=== PATIENT | male | born 1940 | race Caucasian/White ===

== ENCOUNTER 2019-08-29 08:45 | Emergency (ER) | payer MEDICARE, OTHER ==
[~2019-08-29] VITALS: Ht 180.3 cm; Wt 96.2 kg
[~2019-08-29 08:45] MED LIST: METO25TA5; SULF-169; TERA10CA36 PO
[2019-08-29 08:54] VITALS: BP 131/64
== END 2019-08-29 11:56 | disposition home or self-care (01) ==
LOC: EDBD 08:45 → ER 08:45
DX: T83.028A Displacement of other urinary catheter, initial encounter (principal); R36.9 Urethral discharge, unspecified; J44.9 Chronic obstructive pulmonary disease, unspecified; I10 Essential (primary) hypertension; Z87.440 Personal history of urinary (tract) infections; Z95.0 Presence of cardiac pacemaker; Z87.891 Personal history of nicotine dependence; Z79.899 Other long term (current) drug therapy; Z88.2 Allergy status to sulfonamides; Z88.0 Allergy status to penicillin
CPT/HCPCS: 51702; 81002

== ENCOUNTER 2020-09-07 10:29 | Inpatient (IN) | payer MEDICARE, MEDICAID ==
[~2020-09-07] VITALS: Ht 177.8 cm; Wt 84.0 kg
[2020-09-07] MEDS ORDERED: MORPHINE SULFATE 4 MG/ML SYR/VIAL IV ONE (10:45)
[2020-09-07] MEDS ORDERED: ONDANSETRON HCL 4 MG/2 ML VIAL IV ONE (10:45)
[2020-09-07] MEDS ORDERED: SODIUM CHLORIDE 0.9% 500 ML IV ONE (10:45)
[2020-09-07 11:31] LABS: Basophils # (auto) 0.1 10 ^3/uL (0-0.2); Basophils % (auto) 0.7 % (0.0-2.0); Eosinophils # (auto) 0.2 10 ^3/uL (0-0.8); Eosinophils % (auto) 2.3 % (0.0-7.0); Hemoglobin 13.7 g/dL (13.5-17.5); Lymphocytes # (auto) 1.3 10 ^3/uL (0.4-5.4); Mean Corpuscular Hemoglobin 32.2 pg (28.0-32.0); Monocytes # (auto) 0.8 10 ^3/uL (0-1.3); Monocytes % (auto) 8.2 % (0.0-12.0); Neutrophils % (auto) 74.8 % (37.0-80.0); Red Blood Cells 4.24 10^6/uL (4.5-5.90); Red Cell Distribution Width 13.5 % (11.8-14.3); White Blood Cell 9.4 10^3/uL (4.4-10.8)
[2020-09-07 11:48] LABS: Albumin 3.2 g/dL (3.4-5.0); Calcium 8.5 mg/dL (8.5-10.1)
[2020-09-07 11:51] LABS: BUN/Creatinine Ratio 18.2; Bilirubin, Total 0.6 mg/dL (0.2-1.0)
[2020-09-07] MEDS ORDERED: MORPHINE SULF INJ 2 MG/ML SYRINGE 1ML IV PRN ×3 (13:15→17:30)
[2020-09-07] MEDS ORDERED: NITROGLYCERIN 0.4 MG SL TAB SL PRN ×2 (13:15→17:30)
[2020-09-07] MEDS ORDERED: MET25T PO (14:11)
[2020-09-07] MEDS ORDERED: CITA-77 PO (14:11)
[2020-09-07] MEDS ORDERED: POTA-264 PO (14:11)
[2020-09-07] MEDS ORDERED: FUR20T PO (14:11)
[2020-09-07] MEDS ORDERED: OMEP-260 PO (14:11)
[2020-09-07] MEDS ORDERED: TAMS0.4C36 PO (14:11)
[2020-09-07] MEDS ORDERED: LOSA-69 PO (14:11)
[2020-09-07 16:45] VITALS: BP 151/70
[2020-09-07] MEDS ORDERED: LACTATED RINGER'S 1,000 ML IV ONE (17:00)
[2020-09-07 17:28] VITALS: BP 151/70
[2020-09-07] MEDS ORDERED: HYDROcodone-ACET 5/325MG TAB PO PRN (17:30)
[2020-09-07] MEDS ORDERED: ACETAMINOPHEN 325 MG TAB PO PRN (17:30)
[2020-09-07] MEDS ORDERED: DOCUSATE SOD 100 MG CAP PO PRN (17:30)
[2020-09-07] MEDS ORDERED: ALUM & MAG HYDROX-SIMETH LIQ(MAALOX) 30 ML PO PRN (17:30)
[2020-09-07] MEDS ORDERED: ONDANSETRON HCL 4 MG/2 ML VIAL IV PRN (17:30)
[2020-09-07] MEDS ORDERED: LORazepam 0.5 MG TAB PO PRN (17:30)
[2020-09-07] MEDS ORDERED: MEROPENEM 1GM IVPB 100 ML IV ONE (17:45)
[2020-09-07 17:58] LABS: Cholesterol 198 mg/dL (< 200)
[2020-09-07 18:02] LABS: HDL Cholesterol 31 mg/dL (40-59); LDL Cholesterol 139 mg/dL (< 100); Triglycerides 153 mg/dL (< 150)
[2020-09-07] MEDS: SODIUM CHLORIDE 0.9% 1,000 ML IV SCH (18:42)
[2020-09-07 18:46] LABS: Urine Bacteria MOD /hpf (None Seen); Urine Blood 2+ /uL (Negative); Urine Specific Gravity 1.017 (1.001-1.035); Urine WBC 2821 /hpf (0 - 3); Urine WBC Clumps PRESENT /hpf (None Seen)
[2020-09-07 20:55] LABS: Alcohol, Urine < 3.0 mg/dL (0-10); Amphetamine Screen, Urine NEGATIVE (NEGATIVE); Barbiturate Scree,Urine NEGATIVE (NEGATIVE); Opiate Scree,Urine POSITIVE (NEGATIVE); Phencyclidine Screen, Urine NEGATIVE (NEGATIVE)
[2020-09-07 20:56] LABS: Benzodiazephine Screen, Urine NEGATIVE (NEGATIVE); Cannabinoid Screen, Urine POSITIVE (NEGATIVE); Cocaine Screen, Urine NEGATIVE (NEGATIVE)
[2020-09-07] MEDS: LOSARTAN POTASSIUM 50 MG TAB PO SCH (21:34)
[2020-09-07] MEDS: METOPROLOL TARTRATE 25 MG TAB PO SCH (21:34)
[2020-09-07] MEDS: NYSTATIN TOPICAL CREAM 15GM TOP SCH (21:35)
[2020-09-08] VITALS (7 sets, daily range): BP systolic 122–189; BP diastolic 65–87
[2020-09-08] MEDS: MEROPENEM 1GM IVPB 100 ML IV SCH ×3 (01:21→17:45)
[2020-09-08] MEDS: hydrALAZINE HCL 20 MG/ML VL IV PRN (06:29)
[2020-09-08] MEDS: LOSARTAN POTASSIUM 50 MG TAB PO SCH ×2 (10:48→22:07)
[2020-09-08] MEDS: CITALOPRAM HYDROBR 20 MG TAB PO SCH (10:48)
[2020-09-08] MEDS: NYSTATIN TOPICAL CREAM 15GM TOP SCH ×2 (10:49→21:36)
[2020-09-08] MEDS: METOPROLOL TARTRATE 25 MG TAB PO SCH ×2 (10:49→22:07)
[2020-09-08] MEDS: SODIUM CHLORIDE 0.9% 1,000 ML IV SCH (10:49)
[2020-09-08] MEDS: ENOXAPARIN SOD 40 MG/0.4 ML SYRINGE SC SCH (10:49)
[2020-09-08] MEDS: MUPIROCIN 2% OINT 15gm or 22gm EACHNOSTRI SCH (21:36)
[2020-09-09] MEDS: MEROPENEM 1GM IVPB 100 ML IV SCH ×3 (01:30→18:30)
[2020-09-09] MEDS: SODIUM CHLORIDE 0.9% 1,000 ML IV SCH (02:50)
[2020-09-09 05:00] VITALS: BP 192/75
[2020-09-09] MEDS: hydrALAZINE HCL 20 MG/ML VL IV PRN (05:37)
[2020-09-09 08:22] VITALS: BP 161/57
[2020-09-09] MEDS: ENOXAPARIN SOD 40 MG/0.4 ML SYRINGE SC SCH (11:13)
[2020-09-09] MEDS: METOPROLOL TARTRATE 25 MG TAB PO SCH ×2 (11:14→22:51)
[2020-09-09] MEDS: LOSARTAN POTASSIUM 50 MG TAB PO SCH ×2 (11:15→22:50)
[2020-09-09] MEDS: CITALOPRAM HYDROBR 20 MG TAB PO SCH (11:15)
[2020-09-09] MEDS: MUPIROCIN 2% OINT 15gm or 22gm EACHNOSTRI SCH ×2 (11:21→22:49)
[2020-09-09] MEDS: NYSTATIN TOPICAL CREAM 15GM TOP SCH ×2 (11:21→22:51)
[2020-09-09 13:00] VITALS: BP 142/70
[2020-09-09] MEDS ORDERED: cloNIDine HCL 0.1 MG TAB PO PRN (14:30)
[2020-09-09 22:00] VITALS: BP 144/76
[2020-09-10] MEDS: MEROPENEM 1GM IVPB 100 ML IV SCH ×2 (02:30→10:15)
[2020-09-10 05:00] VITALS: BP 166/68
[2020-09-10 08:59] VITALS: BP 161/75
[2020-09-10] MEDS: MUPIROCIN 2% OINT 15gm or 22gm EACHNOSTRI SCH (10:14)
[2020-09-10] MEDS: CITALOPRAM HYDROBR 20 MG TAB PO SCH (10:15)
[2020-09-10] MEDS: METOPROLOL TARTRATE 25 MG TAB PO SCH (10:16)
[2020-09-10] MEDS: NYSTATIN TOPICAL CREAM 15GM TOP SCH (10:17)
[2020-09-10] MEDS: LOSARTAN POTASSIUM 50 MG TAB PO SCH (10:17)
[2020-09-10] MEDS: ENOXAPARIN SOD 40 MG/0.4 ML SYRINGE SC SCH (10:17)
[2020-09-10 13:00] VITALS: BP 155/62
[2020-09-10 15:02] VITALS: BP 148/64
== END 2020-09-10 17:00 | disposition home health service (06) | DRG 698 ==
LOC: ER 10:29 → EDBD 10:29 → TELE 13:11 → TELE-CENTR 16:23
PROVIDERS: ADMIT Hospitalist; ATTEND Family Medicine
DX: T83.510A Infection and inflammatory reaction due to cystostomy catheter, initial encounter (principal); A41.59 Other Gram-negative sepsis; G93.41 Metabolic encephalopathy; R65.20 Severe sepsis without septic shock; N30.01 Acute cystitis with hematuria; N17.9 Acute kidney failure, unspecified; I16.9 Hypertensive crisis, unspecified; I13.0 Hypertensive heart and chronic kidney disease with heart failure and stage 1 through stage 4 chronic kidney disease, or unspecified chronic kidney disease; N13.8 Other obstructive and reflux uropathy; T83.090A Other mechanical complication of cystostomy catheter, initial encounter; N40.1 Benign prostatic hyperplasia with lower urinary tract symptoms; R36.9 Urethral discharge, unspecified; I50.9 Heart failure, unspecified; N21.0 Calculus in bladder; F32.9 Major depressive disorder, single episode, unspecified; G89.29 Other chronic pain; E66.9 Obesity, unspecified; F17.210 Nicotine dependence, cigarettes, uncomplicated; I71.4 Abdominal aortic aneurysm, without rupture; J44.9 Chronic obstructive pulmonary disease, unspecified; L30.4 Erythema intertrigo; B95.62 Methicillin resistant Staphylococcus aureus infection as the cause of diseases classified elsewhere; M54.5 Low back pain; Z96.652 Presence of left artificial knee joint; Z20.822 Contact with and (suspected) exposure to COVID-19; N18.31 Chronic kidney disease, stage 3a; M19.90 Unspecified osteoarthritis, unspecified site; B96.4 Proteus (mirabilis) (morganii) as the cause of diseases classified elsewhere; Y73.8 Miscellaneous gastroenterology and urology devices associated with adverse incidents, not elsewhere classified; Z68.31 Body mass index [BMI] 31.0-31.9, adult; Z79.899 Other long term (current) drug therapy; Z79.01 Long term (current) use of anticoagulants; Z88.2 Allergy status to sulfonamides; Z88.8 Allergy status to other drugs, medicaments and biological substances; Z88.0 Allergy status to penicillin; Z83.3 Family history of diabetes mellitus; Z86.73 Personal history of transient ischemic attack (TIA), and cerebral infarction without residual deficits; Z86.718 Personal history of other venous thrombosis and embolism
CPT/HCPCS: 36415; 74176; 80053; 80061; 80307; 81001; 83036; 84484; 85025; 87040; 87081; 87086; 87088; 87186; 87426; 93005; 96361; 96374; 96375; G0378; J2185; J2405

== ENCOUNTER 2021-01-04 07:55 | Emergency (ER) | payer MEDICARE, MEDICAID ==
[~2021-01-04] VITALS: Ht 180.3 cm; Wt 90.7 kg
[~2021-01-04 07:55] MED LIST changes: +CITA-77 PO; +FUR20T PO; +LOSA-69 PO; +MET25T PO; -METO25TA5; +OMEP-260 PO; +POTA-264 PO; -SULF-169; +TAMS0.4C36 PO; -TERA10CA36 PO
[2021-01-04 09:52] LABS: Basophils # (auto) 0 10 ^3/uL (0-0.2); Basophils % (auto) 0.3 % (0.0-2.0); Eosinophils # (auto) 0.1 10 ^3/uL (0-0.8); Eosinophils % (auto) 0.5 % (0.0-7.0); Hematocrit 42.7 % (41.0-53.0); Hemoglobin 14.3 g/dL (13.5-17.5); Lymphocytes # (auto) 0.7 10 ^3/uL (0.4-5.4); Lymphocytes % (auto) 5.9 % (10.0-50.0); Mean Corpuscular Hemoglobin 31.4 pg (28.0-32.0); Mean Corpuscular Hgb Conc. 33.6 g/dL (32.0-36.0); Mean Corpuscular Volume 93.6 fL (80.0-100.0); Monocytes # (auto) 0.8 10 ^3/uL (0-1.3); Monocytes % (auto) 6.8 % (0.0-12.0); Neutrophils # (auto) 10.6 10 ^3/uL (1.6-8.6); Neutrophils % (auto) 86.5 % (37.0-80.0); Red Blood Cells 4.57 10^6/uL (4.5-5.90); Red Cell Distribution Width 13.6 % (11.8-14.3); White Blood Cell 12.3 10^3/uL (4.4-10.8)
[2021-01-04 10:10] LABS: Calcium 8.3 mg/dL (8.5-10.1); Potassium 4.3 mmol/L (3.5-5.1)
[2021-01-04 10:16] LABS: BUN/Creatinine Ratio 15.5; Total Protein 7.1 g/dL (6.4-8.2)
[2021-01-04] MEDS ORDERED: cefTRIAXone 1GM/50ML D5W 50 ML IV ONE (11:00)
[2021-01-04 13:02] LABS: Urine Amorphous Crystal FEW /hpf (None Seen); Urine Bacteria NONE SEEN /hpf (None Seen); Urine Blood Negative /uL (Negative); Urine Mucus FEW (None Seen); Urine Specific Gravity 1.025 (1.001-1.035); Urine WBC 102 /hpf (0 - 3); Urine WBC Clumps PRESENT /hpf (None Seen)
[2021-01-04 13:45] VITALS: BP 132/75
== END 2021-01-04 14:14 | disposition home or self-care (01) ==
LOC: ER 07:55 → EDBD 07:55 → ER 14:01
DX: R33.9 Retention of urine, unspecified (principal); N30.00 Acute cystitis without hematuria; R30.0 Dysuria; E46 Unspecified protein-calorie malnutrition; Z68.27 Body mass index [BMI] 27.0-27.9, adult; J44.9 Chronic obstructive pulmonary disease, unspecified; I10 Essential (primary) hypertension; F17.210 Nicotine dependence, cigarettes, uncomplicated; Z86.73 Personal history of transient ischemic attack (TIA), and cerebral infarction without residual deficits; Z95.0 Presence of cardiac pacemaker; Z90.89 Acquired absence of other organs; Z79.899 Other long term (current) drug therapy; Z88.0 Allergy status to penicillin; Z88.1 Allergy status to other antibiotic agents; Z88.2 Allergy status to sulfonamides
CPT/HCPCS: 36415; 51702; 71045; 74176; 80053; 81001; 84484; 85025; 96365; 99285; J0696

== ENCOUNTER 2021-06-04 17:44 | Inpatient (IN) | payer MEDICARE, MEDICAID ==
[~2021-06-04] VITALS: Ht 172.7 cm; Wt 91.7 kg
[2021-06-04 18:31] LABS: Basophils # (auto) 0.1 10 ^3/uL (0-0.2); Eosinophils # (auto) 0.9 10 ^3/uL (0-0.8); Hematocrit 38.2 % (41.0-53.0); Hemoglobin 12.9 g/dL (13.5-17.5); Lymphocytes # (auto) 1.3 10 ^3/uL (0.4-5.4); Lymphocytes % (auto) 18.6 % (10.0-50.0); Mean Corpuscular Hemoglobin 30.9 pg (28.0-32.0); Mean Corpuscular Hgb Conc. 33.8 g/dL (32.0-36.0); Mean Corpuscular Volume 91.5 fL (80.0-100.0); Monocytes # (auto) 0.7 10 ^3/uL (0-1.3); Monocytes % (auto) 9.8 % (0.0-12.0); Neutrophils # (auto) 3.9 10 ^3/uL (1.6-8.6); Neutrophils % (auto) 57.6 % (37.0-80.0); Red Blood Cells 4.17 10^6/uL (4.5-5.90); Red Cell Distribution Width 13.9 % (11.8-14.3); White Blood Cell 6.7 10^3/uL (4.4-10.8)
[2021-06-04 18:47] LABS: Albumin 3.2 g/dL (3.4-5.0); BUN/Creatinine Ratio 14.1; Calcium 8.9 mg/dL (8.5-10.1); Potassium 3.9 mmol/L (3.5-5.1)
[2021-06-04 18:49] LABS: Bilirubin, Total 0.4 mg/dL (0.2-1.0); Total Protein 7.4 g/dL (6.4-8.2)
[2021-06-04] MEDS ORDERED: IPRATROPIUM BROM 0.5 MG/2.5ML INH SOL NEB ONE (19:00)
[2021-06-04] MEDS ORDERED: ALBUTEROL SULF 2.5 MG/0.5ML(0.5%) NEB SOLN NEB ONE (19:00)
[2021-06-04] MEDS ORDERED: methylPREDNISolone SOD SUCC 125 MG/2 ML VL IV ONE ×2 (21:30)
[2021-06-04] MEDS ORDERED: ACETAMINOPHEN 325 MG TAB PO PRN (22:00)
[2021-06-04] MEDS ORDERED: ONDANSETRON HCL 4 MG/2 ML VIAL IV PRN (22:00)
[2021-06-04] MEDS ORDERED: NITROGLYCERIN 0.4 MG SL TAB SL PRN (22:00)
[2021-06-04] MEDS ORDERED: MORPHINE SULFATE INJECTION 2 MG/ML SYRG IV PRN (22:00)
[2021-06-04] MEDS: LOSARTAN POTASSIUM 25 MG TAB PO SCH (23:00)
[2021-06-04 23:30] VITALS: BP 159/64
[2021-06-05] MEDS: ALBUTEROL SULF 2.5 MG/0.5ML(0.5%) NEB SOLN NEB SCH ×4 (00:14→18:26)
[2021-06-05] MEDS: IPRATROPIUM BROM 0.5 MG/2.5ML INH SOL NEB SCH ×4 (00:14→18:26)
[2021-06-05 01:16] VITALS: BP 159/84
[2021-06-05 05:00] VITALS: BP 148/60
[2021-06-05] MEDS ORDERED: ALBUTEROL SULF 2.5 MG/0.5ML(0.5%) NEB SOLN NEB SCH (06:00)
[2021-06-05] MEDS ORDERED: IPRATROPIUM BROM 0.5 MG/2.5ML INH SOL NEB SCH (06:00)
[2021-06-05 06:17] LABS: Hematocrit 38.5 % (41.0-53.0); Hemoglobin 13.3 g/dL (13.5-17.5); Mean Corpuscular Hemoglobin 31.7 pg (28.0-32.0); Mean Corpuscular Hgb Conc. 34.5 g/dL (32.0-36.0); Mean Corpuscular Volume 91.8 fL (80.0-100.0); White Blood Cell 4.2 10^3/uL (4.4-10.8)
[2021-06-05 06:23] LABS: Potassium 4.6 mmol/L (3.5-5.1)
[2021-06-05 06:25] LABS: Band Neutrophils % (manual) 0; Basophils % (manual) 0 (0.0-2.0); Blast Cells 0; Eosinophils % (manual) 0 (0-7); Metamyelocytes % 0; Myelocytes % 0; Promyelocytes % 0; Reactive Lymphocytes 0
[2021-06-05 06:28] LABS: BUN/Creatinine Ratio 17.5; Calcium 9.2 mg/dL (8.5-10.1)
[2021-06-05 07:32] LABS: Lymphocytes % (manual) 9 (10.0-50.0); Monocytes % (manual) 4 (0-12)
[2021-06-05 09:00] VITALS: BP 150/75
[2021-06-05] MEDS: AZITHROMYCIN 500MG/ 250ML 250 ML IV SCH (09:24)
[2021-06-05] MEDS: LOSARTAN POTASSIUM 25 MG TAB PO SCH ×2 (09:25→22:25)
[2021-06-05] MEDS: ENOXAPARIN SOD 40 MG/0.4 ML SYRINGE SC SCH (09:25)
[2021-06-05] MEDS: POTASSIUM CHL 10 Meq TABLET PO SCH (09:25)
[2021-06-05] MEDS: METOPROLOL TARTRATE 25 MG TAB PO SCH (09:26)
[2021-06-05] MEDS: FUROSEMIDE 20 MG TAB PO SCH (09:26)
[2021-06-05] MEDS ORDERED: methylPREDNISolone SOD SUCC 125 MG/2 ML VL IV SCH (10:00)
[2021-06-05] MEDS ORDERED: PANTOPRAZOLE 40 MG TAB PO SCH (10:00)
[2021-06-05 13:00] VITALS: BP 161/76
[2021-06-05] MEDS: methylPREDNISolone SOD SUCC 125 MG/2 ML VL IV SCH ×2 (15:27→22:24)
[2021-06-05 17:00] VITALS: BP 154/71
[2021-06-05] MEDS: TAMSULOSIN HYDROCHLORIDE 0.4 MG CAP PO SCH (17:44)
[2021-06-05 22:00] VITALS: BP 169/74
[2021-06-06] MEDS: ALBUTEROL SULF 2.5 MG/0.5ML(0.5%) NEB SOLN NEB SCH ×4 (00:19→18:32)
[2021-06-06] MEDS: IPRATROPIUM BROM 0.5 MG/2.5ML INH SOL NEB SCH ×4 (00:19→18:31)
[2021-06-06 05:00] VITALS: BP 150/92
[2021-06-06] MEDS ORDERED: hydrALAZINE HCL 20 MG/ML VL IV PRN (06:15)
[2021-06-06] MEDS: BUDESONIDE (INHALATION) 0.5 MG/2 ML NEB NEB SCH ×2 (06:20→18:32)
[2021-06-06 09:00] VITALS: BP 126/65
[2021-06-06] MEDS: POTASSIUM CHL 10 Meq TABLET PO SCH (09:26)
[2021-06-06] MEDS: AZITHROMYCIN 500MG/ 250ML 250 ML IV SCH (09:26)
[2021-06-06] MEDS: LOSARTAN POTASSIUM 25 MG TAB PO SCH ×2 (09:26→21:32)
[2021-06-06] MEDS: FUROSEMIDE 20 MG TAB PO SCH (09:27)
[2021-06-06] MEDS: METOPROLOL TARTRATE 25 MG TAB PO SCH (09:27)
[2021-06-06] MEDS: ENOXAPARIN SOD 40 MG/0.4 ML SYRINGE SC SCH (09:27)
[2021-06-06] MEDS ORDERED: cefTRIAXone 1GM/50ML D5W 50 ML IV ONE (09:45)
[2021-06-06] MEDS: predniSONE 20 MG TAB PO SCH (10:35)
[2021-06-06 13:00] VITALS: BP 172/77
[2021-06-06 13:44] VITALS: BP 158/92
[2021-06-06 16:35] VITALS: BP 169/76
[2021-06-06] MEDS: TAMSULOSIN HYDROCHLORIDE 0.4 MG CAP PO SCH (17:34)
[2021-06-06 22:00] VITALS: BP 173/72
[2021-06-07] VITALS (7 sets, daily range): BP systolic 163–187; BP diastolic 71–76
[2021-06-07] MEDS: ALBUTEROL SULF 2.5 MG/0.5ML(0.5%) NEB SOLN NEB SCH ×5 (06:44→18:18)
[2021-06-07] MEDS: IPRATROPIUM BROM 0.5 MG/2.5ML INH SOL NEB SCH ×5 (06:44→18:18)
[2021-06-07] MEDS: BUDESONIDE (INHALATION) 0.5 MG/2 ML NEB NEB SCH ×2 (06:44→18:18)
[2021-06-07] MEDS ORDERED: cefTRIAXone 1GM/50ML D5W 50 ML IV SCH (09:00)
[2021-06-07] MEDS ORDERED: AZITHROMYCIN 250 MG TAB PO SCH (10:00)
[2021-06-07] MEDS: ENOXAPARIN SOD 40 MG/0.4 ML SYRINGE SC SCH (10:24)
[2021-06-07] MEDS: predniSONE 20 MG TAB PO SCH (10:25)
[2021-06-07] MEDS: POTASSIUM CHL 10 Meq TABLET PO SCH (10:25)
[2021-06-07] MEDS: FUROSEMIDE 20 MG TAB PO SCH (10:26)
[2021-06-07] MEDS: METOPROLOL TARTRATE 25 MG TAB PO SCH (10:26)
[2021-06-07] MEDS: LOSARTAN POTASSIUM 25 MG TAB PO SCH (10:27)
[2021-06-07] MEDS ORDERED: UMEC1AER IN ×2 (11:05→14:12)
[2021-06-07] MEDS ORDERED: PRED20TA2 PO ×2 (11:07→14:12)
[2021-06-07] MEDS: TAMSULOSIN HYDROCHLORIDE 0.4 MG CAP PO SCH (17:34)
== END 2021-06-07 17:25 | DRG 189 ==
LOC: EDBD 17:44 → ER 17:44 → TELE 21:55 → TELE-EAST 23:17
PROVIDERS: ADMIT Nurse Practitioner; ATTEND Internal Medicine
DX: J96.21 Acute and chronic respiratory failure with hypoxia (principal); I50.32 Chronic diastolic (congestive) heart failure; E66.9 Obesity, unspecified; I11.0 Hypertensive heart disease with heart failure; F12.90 Cannabis use, unspecified, uncomplicated; Z20.822 Contact with and (suspected) exposure to COVID-19; F17.210 Nicotine dependence, cigarettes, uncomplicated; J43.9 Emphysema, unspecified; Z83.3 Family history of diabetes mellitus; Z86.73 Personal history of transient ischemic attack (TIA), and cerebral infarction without residual deficits; Z95.0 Presence of cardiac pacemaker; Z88.1 Allergy status to other antibiotic agents; Z88.0 Allergy status to penicillin; Z88.2 Allergy status to sulfonamides; Z68.30 Body mass index [BMI] 30.0-30.9, adult
CPT/HCPCS: 36415; 71045; 71250; 80048; 80053; 83880; 84484; 85007; 85025; 85027; 85379; 87081; 93005; 93970; 94640; 96374; G0378; J0696

== ENCOUNTER 2021-06-23 22:49 | Inpatient (IN) | payer MEDICARE, MEDICAID ==
[~2021-06-23] VITALS: Ht 180.3 cm; Wt 94.5 kg
[~2021-06-23 22:49] MED LIST changes: +PRED20TA2 PO; +UMEC1AER IN
[2021-06-23] MEDS ORDERED: IPRATROPIUM BROM 0.5 MG/2.5ML INH SOL NEB ONE (23:30)
[2021-06-23] MEDS ORDERED: ALBUTEROL SULF 2.5 MG/0.5ML(0.5%) NEB SOLN NEB ONE (23:30)
[2021-06-24 00:35] LABS: Basophils # (auto) 0 10 ^3/uL (0-0.2); Basophils % (auto) 0.5 % (0.0-2.0); Eosinophils # (auto) 0.7 10 ^3/uL (0-0.8); Eosinophils % (auto) 7.5 % (0.0-7.0); Hematocrit 35.5 % (41.0-53.0); Lymphocytes # (auto) 0.8 10 ^3/uL (0.4-5.4); Lymphocytes % (auto) 9.2 % (10.0-50.0); Mean Corpuscular Hgb Conc. 33.7 g/dL (32.0-36.0); Mean Corpuscular Volume 91.9 fL (80.0-100.0); Monocytes # (auto) 0.6 10 ^3/uL (0-1.3); Monocytes % (auto) 6.6 % (0.0-12.0); Neutrophils % (auto) 76.2 % (37.0-80.0); Red Blood Cells 3.87 10^6/uL (4.5-5.90); Red Cell Distribution Width 13.8 % (11.8-14.3); White Blood Cell 9.2 10^3/uL (4.4-10.8)
[2021-06-24 00:50] LABS: Albumin 2.8 g/dL (3.4-5.0); Calcium 8.7 mg/dL (8.5-10.1); Potassium 4.2 mmol/L (3.5-5.1)
[2021-06-24 00:51] LABS: Bilirubin, Total 0.4 mg/dL (0.2-1.0); Total Protein 6.4 g/dL (6.4-8.2)
[2021-06-24] MEDS ORDERED: ALBUTEROL SULF 2.5 MG/0.5ML(0.5%) NEB SOLN NEB ONE (02:00)
[2021-06-24] MEDS ORDERED: methylPREDNISolone SOD SUCC 125 MG/2 ML VL IV ONE (02:00)
[2021-06-24] MEDS ORDERED: IPRATROPIUM BROM 0.5 MG/2.5ML INH SOL NEB ONE (02:00)
[2021-06-24] MEDS: MAGNESIUM SULFATE 1GM/100ML 100 ML IV SCH ×2 (02:16→03:08)
[2021-06-24] MEDS ORDERED: ASPirin 325 MG TAB PO ONE (04:15)
[2021-06-24] MEDS ORDERED: AZITHROMYCIN 500MG/ 250ML 250 ML IV ONE (10:30)
[2021-06-24] MEDS ORDERED: MORPHINE SULFATE INJECTION 2 MG/ML SYRG IV PRN (10:30)
[2021-06-24] MEDS ORDERED: ALBUTEROL SULF 2.5 MG/0.5ML(0.5%) NEB SOLN NEB PRN (10:30)
[2021-06-24] MEDS ORDERED: FUROSEMIDE 20 MG/2 ML VIAL IV ONE (10:30)
[2021-06-24] MEDS ORDERED: IPRATROPIUM BROM 0.5 MG/2.5ML INH SOL NEB PRN (10:30)
[2021-06-24] MEDS ORDERED: PANTOPRAZOLE 40 MG/10 ML VIAL INJ IV ONE ×2 (10:30→11:53)
[2021-06-24] MEDS ORDERED: FUROSEMIDE 20 MG/2 ML VIAL ONE (11:53)
[2021-06-24 13:48] VITALS: BP 171/84
[2021-06-24 16:00] VITALS: BP 140/67
[2021-06-24] MEDS: IPRATROPIUM BROM 0.5 MG/2.5ML INH SOL NEB SCH (19:44)
[2021-06-24] MEDS: ALBUTEROL SULF 2.5 MG/0.5ML(0.5%) NEB SOLN NEB SCH (19:44)
[2021-06-24] MEDS: LOSARTAN POTASSIUM 50 MG TAB PO SCH (21:59)
[2021-06-24 22:00] VITALS: BP 142/90
[2021-06-25] MEDS: ALBUTEROL SULF 2.5 MG/0.5ML(0.5%) NEB SOLN NEB SCH ×4 (01:00→19:57)
[2021-06-25] MEDS: IPRATROPIUM BROM 0.5 MG/2.5ML INH SOL NEB SCH ×4 (01:00→19:57)
[2021-06-25 05:00] VITALS: BP 176/79
[2021-06-25] MEDS: hydrALAZINE HCL 20 MG/ML VL IV PRN ×2 (05:16→17:13)
[2021-06-25 05:30] LABS: Basophils # (auto) 0 10 ^3/uL (0-0.2); Basophils % (auto) 0.1 % (0.0-2.0); Eosinophils # (auto) 0 10 ^3/uL (0-0.8); Hematocrit 35.2 % (41.0-53.0); Hemoglobin 11.9 g/dL (13.5-17.5); Lymphocytes # (auto) 0.8 10 ^3/uL (0.4-5.4); Lymphocytes % (auto) 6.9 % (10.0-50.0); Mean Corpuscular Hemoglobin 30.5 pg (28.0-32.0); Mean Corpuscular Hgb Conc. 33.8 g/dL (32.0-36.0); Mean Corpuscular Volume 90.4 fL (80.0-100.0); Monocytes # (auto) 0.5 10 ^3/uL (0-1.3); Monocytes % (auto) 4.6 % (0.0-12.0); Neutrophils % (auto) 88.4 % (37.0-80.0); Red Cell Distribution Width 13.6 % (11.8-14.3); White Blood Cell 11.3 10^3/uL (4.4-10.8)
[2021-06-25 05:48] LABS: Albumin 2.6 g/dL (3.4-5.0); BUN/Creatinine Ratio 23.1; Calcium 8.6 mg/dL (8.5-10.1); Potassium 4.4 mmol/L (3.5-5.1)
[2021-06-25 05:57] LABS: Bilirubin, Total 0.4 mg/dL (0.2-1.0); Total Protein 6.2 g/dL (6.4-8.2)
[2021-06-25 09:14] VITALS: BP 172/76
[2021-06-25] MEDS ORDERED: TAMSULOSIN HYDROCHLORIDE 0.4 MG CAP PO SCH (10:00)
[2021-06-25] MEDS: FUROSEMIDE 20 MG/2 ML VIAL IV SCH (10:01)
[2021-06-25] MEDS: PANTOPRAZOLE 40 MG/10 ML VIAL INJ IV SCH (10:01)
[2021-06-25] MEDS: AZITHROMYCIN 500MG/ 250ML 250 ML IV SCH (10:02)
[2021-06-25] MEDS: methylPREDNISolone SOD SUCC 40 MG/ML VL IV SCH ×2 (10:02→22:07)
[2021-06-25] MEDS: LOSARTAN POTASSIUM 50 MG TAB PO SCH ×2 (10:02→22:08)
[2021-06-25] MEDS: POTASSIUM CHL 10 Meq TABLET PO SCH (10:03)
[2021-06-25] MEDS: METOPROLOL TARTRATE 25 MG TAB PO SCH (10:03)
[2021-06-25] MEDS: ENOXAPARIN SOD 40 MG/0.4 ML SYRINGE SC SCH (10:04)
[2021-06-25 13:00] VITALS: BP 165/75
[2021-06-25 17:00] VITALS: BP 164/72
[2021-06-25 22:00] VITALS: BP 148/60
[2021-06-26 05:00] VITALS: BP 128/62
[2021-06-26] MEDS: IPRATROPIUM BROM 0.5 MG/2.5ML INH SOL NEB SCH ×3 (06:30→19:18)
[2021-06-26] MEDS: ALBUTEROL SULF 2.5 MG/0.5ML(0.5%) NEB SOLN NEB SCH ×3 (06:30→19:18)
[2021-06-26 08:18] VITALS: BP 152/75
[2021-06-26] MEDS: POTASSIUM CHL 10 Meq TABLET PO SCH (10:06)
[2021-06-26] MEDS: LOSARTAN POTASSIUM 50 MG TAB PO SCH ×2 (10:06→22:55)
[2021-06-26] MEDS: METOPROLOL TARTRATE 25 MG TAB PO SCH (10:07)
[2021-06-26] MEDS: ENOXAPARIN SOD 40 MG/0.4 ML SYRINGE SC SCH (10:07)
[2021-06-26] MEDS: methylPREDNISolone SOD SUCC 40 MG/ML VL IV SCH ×2 (10:07→22:55)
[2021-06-26] MEDS: FUROSEMIDE 20 MG/2 ML VIAL IV SCH (10:08)
[2021-06-26] MEDS: PANTOPRAZOLE 40 MG/10 ML VIAL INJ IV SCH (10:08)
[2021-06-26] MEDS: AZITHROMYCIN 500MG/ 250ML 250 ML IV SCH (10:09)
[2021-06-26 12:59] VITALS: BP 153/73
[2021-06-26 17:23] VITALS: BP 151/74
[2021-06-26 17:25] VITALS: BP 151/74
[2021-06-26 22:00] VITALS: BP 160/63
[2021-06-26] MEDS: hydrALAZINE HCL 20 MG/ML VL IV PRN (23:06)
[2021-06-27 05:00] VITALS: BP 181/77
[2021-06-27] MEDS: hydrALAZINE HCL 20 MG/ML VL IV PRN ×2 (05:36→15:53)
[2021-06-27] MEDS: ALBUTEROL SULF 2.5 MG/0.5ML(0.5%) NEB SOLN NEB SCH ×2 (06:44→11:49)
[2021-06-27] MEDS: IPRATROPIUM BROM 0.5 MG/2.5ML INH SOL NEB SCH ×2 (06:44→11:49)
[2021-06-27 08:00] VITALS: BP 139/79
[2021-06-27 09:00] VITALS: BP 139/79
[2021-06-27] MEDS: AZITHROMYCIN 500MG/ 250ML 250 ML IV SCH (10:01)
[2021-06-27] MEDS: PANTOPRAZOLE 40 MG/10 ML VIAL INJ IV SCH (10:02)
[2021-06-27] MEDS: methylPREDNISolone SOD SUCC 40 MG/ML VL IV SCH (10:02)
[2021-06-27] MEDS: FUROSEMIDE 20 MG/2 ML VIAL IV SCH (10:02)
[2021-06-27] MEDS: ENOXAPARIN SOD 40 MG/0.4 ML SYRINGE SC SCH (10:03)
[2021-06-27] MEDS: LOSARTAN POTASSIUM 50 MG TAB PO SCH (10:04)
[2021-06-27] MEDS: POTASSIUM CHL 10 Meq TABLET PO SCH (10:04)
[2021-06-27] MEDS: METOPROLOL TARTRATE 25 MG TAB PO SCH (10:04)
[2021-06-27 13:00] VITALS: BP 129/69
[2021-06-27 16:07] VITALS: BP 139/79
[2021-06-27 17:00] VITALS: BP 179/68
== END 2021-06-27 17:05 | disposition home or self-care (01) | DRG 291 ==
LOC: ER 22:49 → EDBD 22:49 → TELE 06-24 10:21 → TELE-WESTW 06-24 15:36
PROVIDERS: ADMIT Registered Nurse; ATTEND Internal Medicine
DX: I13.0 Hypertensive heart and chronic kidney disease with heart failure and stage 1 through stage 4 chronic kidney disease, or unspecified chronic kidney disease (principal); I50.31 Acute diastolic (congestive) heart failure; J96.21 Acute and chronic respiratory failure with hypoxia; J44.1 Chronic obstructive pulmonary disease with (acute) exacerbation; N39.0 Urinary tract infection, site not specified; Z20.822 Contact with and (suspected) exposure to COVID-19; E88.09 Other disorders of plasma-protein metabolism, not elsewhere classified; D63.8 Anemia in other chronic diseases classified elsewhere; F12.90 Cannabis use, unspecified, uncomplicated; N18.2 Chronic kidney disease, stage 2 (mild); Z86.73 Personal history of transient ischemic attack (TIA), and cerebral infarction without residual deficits; Z83.3 Family history of diabetes mellitus; Z87.891 Personal history of nicotine dependence; Z99.81 Dependence on supplemental oxygen; Z88.2 Allergy status to sulfonamides; Z88.0 Allergy status to penicillin
CPT/HCPCS: 36415; 71045; 80053; 83880; 84484; 85025; 93005; 93306; 94640; 96361; 96365; 96366; 96367; 96375; C9113; G0378

== ENCOUNTER 2021-07-07 02:06 | Inpatient (IN) | payer MEDICARE, MEDICAID ==
[~2021-07-07] VITALS: Ht 177.8 cm; Wt 94.5 kg
[~2021-07-07 02:06] MED LIST changes: -PRED20TA2 PO
[2021-07-07 06:33] LABS: Basophils # (auto) 0.1 10 ^3/uL (0-0.2); Basophils % (auto) 0.8 % (0.0-2.0); Eosinophils # (auto) 0.5 10 ^3/uL (0-0.8); Eosinophils % (auto) 6.5 % (0.0-7.0); Hematocrit 34.2 % (41.0-53.0); Lymphocytes # (auto) 1.4 10 ^3/uL (0.4-5.4); Lymphocytes % (auto) 18.2 % (10.0-50.0); Mean Corpuscular Hemoglobin 32.1 pg (28.0-32.0); Mean Corpuscular Hgb Conc. 35.1 g/dL (32.0-36.0); Mean Corpuscular Volume 91.6 fL (80.0-100.0); Monocytes # (auto) 0.8 10 ^3/uL (0-1.3); Monocytes % (auto) 10.4 % (0.0-12.0); Neutrophils # (auto) 4.8 10 ^3/uL (1.6-8.6); Neutrophils % (auto) 64.1 % (37.0-80.0); Nucleated Red Blood Cells % 0.1 %; Red Blood Cells 3.73 10^6/uL (4.5-5.90); Red Cell Distribution Width 13.8 % (11.8-14.3); White Blood Cell 7.5 10^3/uL (4.4-10.8)
[2021-07-07 06:38] LABS: Albumin 2.9 g/dL (3.4-5.0); BUN/Creatinine Ratio 15.5; Calcium 8.7 mg/dL (8.5-10.1); Magnesium 2.1 mg/dL (1.6-2.6); Potassium 4.2 mmol/L (3.5-5.1)
[2021-07-07 06:41] LABS: Bilirubin, Total 0.5 mg/dL (0.2-1.0); Total Protein 5.8 g/dL (6.4-8.2)
[2021-07-07 06:56] LABS: Partial Thromboplastin Time 28.5 sec (23.6-33.0)
[2021-07-07 07:58] LABS: Urine Bacteria FEW /hpf (None Seen); Urine Blood 3+ /uL (Negative); Urine Specific Gravity 1.007 (1.001-1.035); Urine WBC 46 /hpf (0 - 3)
[2021-07-07] MEDS ORDERED: FUROSEMIDE 40 MG/4 ML VIAL IV ONE (08:30)
[2021-07-07] MEDS ORDERED: SPIRONOLACTONE 25 MG TAB PO ONE (08:30)
[2021-07-07] MEDS ORDERED: IPRATROPIUM BROM 0.5 MG/2.5ML INH SOL NEB ONE ×2 (09:00→12:15)
[2021-07-07] MEDS ORDERED: ALBUTEROL SULF 2.5 MG/0.5ML(0.5%) NEB SOLN NEB ONE ×2 (09:00→12:15)
[2021-07-07] MEDS ORDERED: cefTRIAXone 1GM/50ML D5W 50 ML IV ONE (09:45)
[2021-07-07] MEDS ORDERED: IOHEXOL 350 MG/ML 100ML IJ ONE (09:51)
[2021-07-07] MEDS ORDERED: LABETALOL HCL 5 MG/ML 4ML SYRINGE IV ONE (11:45)
[2021-07-07] MEDS ORDERED: methylPREDNISolone SOD SUCC 125 MG/2 ML VL IV ONE (12:15)
[2021-07-07] MEDS ORDERED: MORPHINE SULFATE INJ 2 MG/ml SYRG IV PRN ×2 (16:00→17:30)
[2021-07-07] MEDS ORDERED: NITROGLYCERIN 0.4 MG SL TAB SL PRN (16:00)
[2021-07-07] MEDS ORDERED: hydrALAZINE HCL 20 MG/ML VL IV PRN (17:00)
[2021-07-07] MEDS ORDERED: DOCUSATE SOD 100 MG CAP PO PRN (17:30)
[2021-07-07] MEDS ORDERED: ONDANSETRON HCL 4 MG/2 ML VIAL IV PRN (17:30)
[2021-07-07] MEDS ORDERED: LORazepam 0.5 MG TAB PO PRN (17:30)
[2021-07-07] MEDS ORDERED: HYDROcodone-ACET 5/325MG TAB PO PRN (17:30)
[2021-07-07] MEDS ORDERED: PROMETHAZINE-DM 5 ML ORAL SYRUP PO PRN (17:30)
[2021-07-07] MEDS ORDERED: NIFEdipine ER 30 MG TAB PO ONE (17:30)
[2021-07-07] MEDS ORDERED: ACETAMINOPHEN 325 MG TAB PO PRN (17:30)
[2021-07-07] MEDS ORDERED: PANTOPRAZOLE 40 MG/10 ML VIAL INJ IV ONE (17:30)
[2021-07-07] MEDS: FUROSEMIDE 20 MG/2 ML VIAL IV SCH (17:59)
[2021-07-07] MEDS: TAMSULOSIN HYDROCHLORIDE 0.4 MG CAP PO SCH (18:00)
[2021-07-07] MEDS: BUDESONIDE (INHALATION) 0.5 MG/2 ML NEB NEB SCH (18:12)
[2021-07-07] MEDS: ALBUTEROL SULF 2.5 MG/0.5ML(0.5%) NEB SOLN NEB PRN ×2 (18:12→22:58)
[2021-07-07] MEDS: IPRATROPIUM BROM 0.5 MG/2.5ML INH SOL NEB SCH ×2 (18:12→22:58)
[2021-07-07 18:58] LABS: INR 1.04 (0.9-1.15); Partial Thromboplastin Time 27.7 sec (23.6-33.0)
[2021-07-07 19:04] LABS: Magnesium 2.1 mg/dL (1.6-2.6); Phosphorus 3.5 mg/dL (2.5-4.90)
[2021-07-07] MEDS ORDERED: POTA-180 PO (20:05)
[2021-07-07] MEDS ORDERED: PRED20TA2 PO (20:05)
[2021-07-07] MEDS ORDERED: AML5T PO (20:05)
[2021-07-07] MEDS ORDERED: FURO20TA3 PO (20:05)
[2021-07-07] MEDS ORDERED: MET50T PO (20:05)
[2021-07-07] MEDS ORDERED: ASPI1TAB20 PO (20:05)
[2021-07-07 22:00] VITALS: BP 139/78
[2021-07-07] MEDS: POTASSIUM CHL 20 Meq TABLET PO SCH (22:29)
[2021-07-07] MEDS: ATORVASTATIN 20 MG TAB PO SCH (22:29)
[2021-07-07] MEDS: methylPREDNISolone SOD SUCC 40 MG/ML VL IV SCH (22:31)
[2021-07-07] MEDS: ISOSORBIDE MONONITRATE 20 MG TAB PO SCH (22:31)
[2021-07-07 23:28] VITALS: BP 139/78
[2021-07-08] MEDS: IPRATROPIUM BROM 0.5 MG/2.5ML INH SOL NEB SCH ×6 (02:36→22:36)
[2021-07-08] MEDS: ALBUTEROL SULF 2.5 MG/0.5ML(0.5%) NEB SOLN NEB PRN ×6 (02:36→22:36)
[2021-07-08 05:00] VITALS: BP 124/58
[2021-07-08 05:01] LABS: Basophils # (auto) 0 10 ^3/uL (0-0.2); Basophils % (auto) 0.4 % (0.0-2.0); Eosinophils # (auto) 0 10 ^3/uL (0-0.8); Hematocrit 37.3 % (41.0-53.0); Hemoglobin 12.9 g/dL (13.5-17.5); Lymphocytes # (auto) 0.6 10 ^3/uL (0.4-5.4); Lymphocytes % (auto) 7.3 % (10.0-50.0); Mean Corpuscular Hemoglobin 31.7 pg (28.0-32.0); Mean Corpuscular Hgb Conc. 34.5 g/dL (32.0-36.0); Mean Corpuscular Volume 91.9 fL (80.0-100.0); Monocytes # (auto) 0.1 10 ^3/uL (0-1.3); Neutrophils # (auto) 7.5 10 ^3/uL (1.6-8.6); Neutrophils % (auto) 91.3 % (37.0-80.0); Red Blood Cells 4.06 10^6/uL (4.5-5.90); White Blood Cell 8.2 10^3/uL (4.4-10.8)
[2021-07-08 05:23] LABS: INR 1.05 (0.9-1.15); Partial Thromboplastin Time 28.2 sec (23.6-33.0)
[2021-07-08 05:27] LABS: Potassium 3.6 mmol/L (3.5-5.1)
[2021-07-08 05:36] LABS: BUN/Creatinine Ratio 15.5; Bilirubin, Total 0.5 mg/dL (0.2-1.0); CRP High Sensitivity 0.86 mg/dL (< 0.3); Magnesium 1.9 mg/dL (1.6-2.6); Phosphorus 3.5 mg/dL (2.5-4.90); Uric Acid 6.8 mg/dL (3.5-7.2)
[2021-07-08] MEDS: methylPREDNISolone SOD SUCC 40 MG/ML VL IV SCH ×3 (05:50→21:21)
[2021-07-08] MEDS: FUROSEMIDE 20 MG/2 ML VIAL IV SCH ×2 (05:52→18:02)
[2021-07-08] MEDS: BUDESONIDE (INHALATION) 0.5 MG/2 ML NEB NEB SCH ×2 (06:34→19:26)
[2021-07-08 09:00] VITALS: BP 111/56
[2021-07-08] MEDS ORDERED: PANTOPRAZOLE 40 MG/10 ML VIAL INJ IV SCH (10:00)
[2021-07-08] MEDS ORDERED: AZITHROMYCIN 500MG/ 250ML 250 ML IV SCH (10:00)
[2021-07-08] MEDS: ASPirin 81 mg TAB PO SCH (10:58)
[2021-07-08] MEDS: ISOSORBIDE MONONITRATE 20 MG TAB PO SCH ×2 (10:58→21:41)
[2021-07-08] MEDS: POTASSIUM CHL 20 Meq TABLET PO SCH ×2 (10:58→21:22)
[2021-07-08] MEDS: NIFEdipine ER 30 MG TAB PO SCH (10:59)
[2021-07-08] MEDS: ENOXAPARIN SOD 40 MG/0.4 ML SYRINGE SC SCH (10:59)
[2021-07-08 13:00] VITALS: BP 111/53
[2021-07-08 16:57] VITALS: BP 116/58
[2021-07-08] MEDS: TAMSULOSIN HYDROCHLORIDE 0.4 MG CAP PO SCH (18:02)
[2021-07-08] MEDS: ATORVASTATIN 20 MG TAB PO SCH (21:21)
[2021-07-08 22:00] VITALS: BP 115/58
[2021-07-09] MEDS: IPRATROPIUM BROM 0.5 MG/2.5ML INH SOL NEB SCH ×6 (02:00→22:46)
[2021-07-09 05:00] VITALS: BP 118/60
[2021-07-09] MEDS: methylPREDNISolone SOD SUCC 40 MG/ML VL IV SCH ×3 (05:16→22:19)
[2021-07-09] MEDS: FUROSEMIDE 20 MG/2 ML VIAL IV SCH ×2 (05:16→19:13)
[2021-07-09 05:57] LABS: BUN/Creatinine Ratio 29.9; Potassium 4.4 mmol/L (3.5-5.1)
[2021-07-09] MEDS: ALBUTEROL SULF 2.5 MG/0.5ML(0.5%) NEB SOLN NEB PRN ×5 (06:01→22:46)
[2021-07-09] MEDS: BUDESONIDE (INHALATION) 0.5 MG/2 ML NEB NEB SCH ×2 (06:01→22:46)
[2021-07-09 06:03] LABS: Urine Bacteria FEW /hpf (None Seen); Urine Blood Negative /uL (Negative); Urine Specific Gravity 1.018 (1.001-1.035); Urine WBC 31 /hpf (0 - 3)
[2021-07-09 06:13] LABS: Alcohol, Urine < 3.0 mg/dL (0-10); Amphetamine Screen, Urine NEGATIVE (NEGATIVE); Barbiturate Scree,Urine NEGATIVE (NEGATIVE); Benzodiazephine Screen, Urine NEGATIVE (NEGATIVE); Cannabinoid Screen, Urine NEGATIVE (NEGATIVE); Cocaine Screen, Urine NEGATIVE (NEGATIVE); Opiate Scree,Urine NEGATIVE (NEGATIVE); Phencyclidine Screen, Urine NEGATIVE (NEGATIVE); Protein, Urine 11.7 mg/dL (0.0-11.9)
[2021-07-09 09:00] VITALS: BP 129/54
[2021-07-09] MEDS: ASPirin 81 mg TAB PO SCH (10:26)
[2021-07-09] MEDS: NIFEdipine ER 30 MG TAB PO SCH (10:27)
[2021-07-09] MEDS: POTASSIUM CHL 20 Meq TABLET PO SCH ×2 (10:27→22:20)
[2021-07-09] MEDS: ENOXAPARIN SOD 40 MG/0.4 ML SYRINGE SC SCH (10:27)
[2021-07-09] MEDS: ISOSORBIDE MONONITRATE 20 MG TAB PO SCH ×2 (10:28→22:19)
[2021-07-09 13:00] VITALS: BP 134/44
[2021-07-09 17:00] VITALS: BP 141/62
[2021-07-09] MEDS: TAMSULOSIN HYDROCHLORIDE 0.4 MG CAP PO SCH (19:12)
[2021-07-09 22:00] VITALS: BP 125/51
[2021-07-09] MEDS: ATORVASTATIN 20 MG TAB PO SCH (22:20)
[2021-07-10] MEDS: IPRATROPIUM BROM 0.5 MG/2.5ML INH SOL NEB SCH ×4 (02:00→14:23)
[2021-07-10 05:00] VITALS: BP 146/69
[2021-07-10] MEDS: FUROSEMIDE 20 MG/2 ML VIAL IV SCH (05:30)
[2021-07-10] MEDS: methylPREDNISolone SOD SUCC 40 MG/ML VL IV SCH ×2 (05:30→14:00)
[2021-07-10] MEDS: BUDESONIDE (INHALATION) 0.5 MG/2 ML NEB NEB SCH (06:43)
[2021-07-10] MEDS: ALBUTEROL SULF 2.5 MG/0.5ML(0.5%) NEB SOLN NEB PRN ×3 (06:43→14:23)
[2021-07-10 09:00] VITALS: BP 142/54
[2021-07-10] MEDS: NIFEdipine ER 30 MG TAB PO SCH (10:00)
[2021-07-10] MEDS: ASPirin 81 mg TAB PO SCH (10:25)
[2021-07-10] MEDS: ISOSORBIDE MONONITRATE 20 MG TAB PO SCH (10:27)
[2021-07-10] MEDS: POTASSIUM CHL 20 Meq TABLET PO SCH (10:27)
[2021-07-10] MEDS: ENOXAPARIN SOD 40 MG/0.4 ML SYRINGE SC SCH (10:29)
[2021-07-10 13:00] VITALS: BP 136/62
[2021-07-10 15:22] VITALS: BP 139/56
== END 2021-07-10 18:45 | DRG 291 ==
LOC: ER 02:06 → EDBD 02:06 → TELE 15:49 → TELE-WESTW 18:51
PROVIDERS: ADMIT Hospitalist; ATTEND Internal Medicine
DX: I11.0 Hypertensive heart disease with heart failure (principal); J96.20 Acute and chronic respiratory failure, unspecified whether with hypoxia or hypercapnia; I50.33 Acute on chronic diastolic (congestive) heart failure; J44.1 Chronic obstructive pulmonary disease with (acute) exacerbation; N39.0 Urinary tract infection, site not specified; E44.0 Moderate protein-calorie malnutrition; E66.01 Morbid (severe) obesity due to excess calories; E78.5 Hyperlipidemia, unspecified; G89.29 Other chronic pain; N20.9 Urinary calculus, unspecified; F32.9 Major depressive disorder, single episode, unspecified; N40.0 Benign prostatic hyperplasia without lower urinary tract symptoms; M54.50 Low back pain, unspecified; R79.89 Other specified abnormal findings of blood chemistry; Z20.822 Contact with and (suspected) exposure to COVID-19; Z79.899 Other long term (current) drug therapy; Z83.3 Family history of diabetes mellitus; Z86.73 Personal history of transient ischemic attack (TIA), and cerebral infarction without residual deficits; Z87.891 Personal history of nicotine dependence; Z95.0 Presence of cardiac pacemaker; Z68.29 Body mass index [BMI] 29.0-29.9, adult; Z88.1 Allergy status to other antibiotic agents; Z88.2 Allergy status to sulfonamides; Z88.8 Allergy status to other drugs, medicaments and biological substances
CPT/HCPCS: 36415; 71045; 71275; 80048; 80053; 80061; 80307; 81001; 82550; 82728; 83036; 83615; 83690; 83735; 83880; 84100; 84156; 84443; 84484; 84550; 85025; 85379; 85610; 85652; 85730; 86141; 87040; 87070; 87081; 87086; 87205; 93005; 94640; 96365; 96375; 96376; C9113; G0378; J0696; J3490

== ENCOUNTER 2021-07-25 22:44 | Inpatient (IN) | payer MEDICARE, MEDICAID ==
[~2021-07-25] VITALS: Ht 175.3 cm; Wt 223.9 kg
[~2021-07-25 22:44] MED LIST changes: +AML5T PO; +ASPI1TAB20 PO; -FUR20T PO; +FURO20TA3 PO; -MET25T PO; +MET50T PO; +POTA-180 PO; -POTA-264 PO; +PRED20TA2 PO
[2021-07-25] MEDS ORDERED: ALBUTEROL SULF 2.5 MG/0.5ML(0.5%) NEB SOLN NEB ONE (23:00)
[2021-07-25] MEDS ORDERED: IPRATROPIUM BROM 0.5 MG/2.5ML INH SOL NEB ONE (23:00)
[2021-07-25] MEDS ORDERED: FUROSEMIDE 40 MG/4 ML VIAL IV ONE (23:00)
[2021-07-25] MEDS ORDERED: methylPREDNISolone SOD SUCC 125 MG/2 ML VL IV ONE (23:00)
[2021-07-25 23:38] LABS: Basophils # (auto) 0 10 ^3/uL (0-0.2); Basophils % (auto) 0.6 % (0.0-2.0); Eosinophils # (auto) 0.4 10 ^3/uL (0-0.8); Eosinophils % (auto) 6.8 % (0.0-7.0); Hematocrit 33.6 % (41.0-53.0); Hemoglobin 11.5 g/dL (13.5-17.5); Lymphocytes # (auto) 1.6 10 ^3/uL (0.4-5.4); Mean Corpuscular Hemoglobin 31.5 pg (28.0-32.0); Mean Corpuscular Hgb Conc. 34.1 g/dL (32.0-36.0); Mean Corpuscular Volume 92.5 fL (80.0-100.0); Monocytes # (auto) 0.6 10 ^3/uL (0-1.3); Monocytes % (auto) 8.9 % (0.0-12.0); Neutrophils # (auto) 3.9 10 ^3/uL (1.6-8.6); Neutrophils % (auto) 58.7 % (37.0-80.0); Red Blood Cells 3.64 10^6/uL (4.5-5.90); Red Cell Distribution Width 14.5 % (11.8-14.3); White Blood Cell 6.6 10^3/uL (4.4-10.8)
[2021-07-26] MEDS ORDERED: ACETAMINOPHEN 325 MG TAB PO PRN
[2021-07-26] MEDS ORDERED: HYDROcodone-ACET 5/325MG TAB PO PRN
[2021-07-26] MEDS ORDERED: DOCUSATE SOD 100 MG CAP PO PRN
[2021-07-26] MEDS ORDERED: ONDANSETRON HCL 4 MG/2 ML VIAL IV PRN
[2021-07-26 00:02] LABS: Albumin 3.1 g/dL (3.4-5.0); Calcium 8.6 mg/dL (8.5-10.1); Magnesium 2.2 mg/dL (1.6-2.6); Potassium 4.2 mmol/L (3.5-5.1)
[2021-07-26 00:08] LABS: Bilirubin, Total 0.6 mg/dL (0.2-1.0); Total Protein 6.3 g/dL (6.4-8.2)
[2021-07-26 00:32] LABS: BUN/Creatinine Ratio 19.8
[2021-07-26] MEDS: hydrALAZINE HCL 20 MG/ML VL IV PRN ×2 (02:27→15:05)
[2021-07-26] MEDS ORDERED: NITROGLYCERIN 0.4 MG SL TAB SL PRN (02:30)
[2021-07-26] MEDS ORDERED: MORPHINE SULFATE INJ 2 MG/ml SYRG IV PRN (02:30)
[2021-07-26] MEDS: SODIUM CHLOR 0.9% PF (SALINE LOCK) 10ML VIAL/SYR IV SCH ×3 (05:59→21:53)
[2021-07-26] MEDS: methylPREDNISolone SOD SUCC 40 MG/ML VL IV SCH ×3 (05:59→21:54)
[2021-07-26 07:00] LABS: Basophils # (auto) 0 10 ^3/uL (0-0.2); Basophils % (auto) 0.1 % (0.0-2.0); Eosinophils # (auto) 0 10 ^3/uL (0-0.8); Eosinophils % (auto) 0.3 % (0.0-7.0); Hematocrit 36.8 % (41.0-53.0); Hemoglobin 12.5 g/dL (13.5-17.5); Lymphocytes # (auto) 0.5 10 ^3/uL (0.4-5.4); Lymphocytes % (auto) 7.9 % (10.0-50.0); Mean Corpuscular Hemoglobin 31.7 pg (28.0-32.0); Mean Corpuscular Volume 93.4 fL (80.0-100.0); Monocytes # (auto) 0.1 10 ^3/uL (0-1.3); Monocytes % (auto) 1.1 % (0.0-12.0); Neutrophils # (auto) 5.6 10 ^3/uL (1.6-8.6); Neutrophils % (auto) 90.6 % (37.0-80.0); Red Blood Cells 3.94 10^6/uL (4.5-5.90); Red Cell Distribution Width 14.6 % (11.8-14.3); White Blood Cell 6.2 10^3/uL (4.4-10.8)
[2021-07-26 07:18] LABS: Potassium 4.5 mmol/L (3.5-5.1)
[2021-07-26 07:27] LABS: Albumin 3.2 g/dL (3.4-5.0); BUN/Creatinine Ratio 16.8; Bilirubin, Total 0.7 mg/dL (0.2-1.0); Calcium 8.7 mg/dL (8.5-10.1); Total Protein 7.2 g/dL (6.4-8.2)
[2021-07-26] MEDS: HEPARIN SODIUM (PORCINE) 5000 UNITS/ML 1ML VIAL SC SCH ×2 (09:36→21:57)
[2021-07-26] MEDS: FUROSEMIDE 40 MG/4 ML VIAL IV SCH (09:36)
[2021-07-26] MEDS: FAMOTIDINE (10MG/ML) 2ML VL IV SCH ×2 (09:37→21:52)
[2021-07-26] MEDS: amLODIPine BESYLATE 5 MG TAB PO SCH (09:38)
[2021-07-26] MEDS ORDERED: CARVEDILOL 12.5 MG TAB PO SCH (10:00)
[2021-07-26 15:18] VITALS: BP 160/75
[2021-07-26 16:20] VITALS: BP 160/75
[2021-07-26] MEDS ORDERED: LORA-655 PO (17:35)
[2021-07-26] MEDS: TAMSULOSIN HYDROCHLORIDE 0.4 MG CAP PO SCH (17:44)
[2021-07-26] MEDS ORDERED: LABETALOL HCL 5 MG/ML 4ML SYRINGE IV PRN (17:45)
[2021-07-26 17:57] LABS: Urine Amorphous Crystal FEW /hpf (None Seen); Urine Bacteria FEW /hpf (None Seen); Urine Blood 1+ /uL (Negative); Urine Specific Gravity 1.014 (1.001-1.035); Urine WBC 43 /hpf (0 - 3); Urine WBC Clumps PRESENT /hpf (None Seen)
[2021-07-26] MEDS: ALBUTEROL SULF 2.5 MG/0.5ML(0.5%) NEB SOLN NEB PRN (19:31)
[2021-07-26] MEDS: IPRATROPIUM BROM 0.5 MG/2.5ML INH SOL NEB PRN (19:31)
[2021-07-26] MEDS: CARVEDILOL 12.5 MG TAB PO SCH (21:56)
[2021-07-26 22:00] VITALS: BP 164/70
[2021-07-27] MEDS: hydrALAZINE HCL 20 MG/ML VL IV PRN (04:53)
[2021-07-27 05:00] VITALS: BP 165/70
[2021-07-27] MEDS: SODIUM CHLOR 0.9% PF (SALINE LOCK) 10ML VIAL/SYR IV SCH ×3 (05:14→21:38)
[2021-07-27 06:22] LABS: Calcium 8.7 mg/dL (8.5-10.1); Magnesium 2.4 mg/dL (1.6-2.6); Potassium 3.8 mmol/L (3.5-5.1)
[2021-07-27 06:23] LABS: BUN/Creatinine Ratio 31.3
[2021-07-27 09:00] VITALS: BP 156/69
[2021-07-27] MEDS: amLODIPine BESYLATE 5 MG TAB PO SCH (09:17)
[2021-07-27] MEDS: CARVEDILOL 12.5 MG TAB PO SCH ×2 (09:17→21:38)
[2021-07-27] MEDS: LOSARTAN POTASSIUM 50 MG TAB PO SCH (09:18)
[2021-07-27] MEDS: FUROSEMIDE 40 MG/4 ML VIAL IV SCH (09:18)
[2021-07-27] MEDS: FAMOTIDINE (10MG/ML) 2ML VL IV SCH ×2 (09:19→21:38)
[2021-07-27] MEDS: methylPREDNISolone SOD SUCC 40 MG/ML VL IV SCH ×2 (09:19→21:38)
[2021-07-27] MEDS: HEPARIN SODIUM (PORCINE) 5000 UNITS/ML 1ML VIAL SC SCH ×2 (09:20→21:37)
[2021-07-27] MEDS ORDERED: guaiFENesin-DM 100/10mg/5ml SYR PO PRN (09:30)
[2021-07-27 13:00] VITALS: BP 144/78
[2021-07-27 17:00] VITALS: BP 134/62
[2021-07-27] MEDS: TAMSULOSIN HYDROCHLORIDE 0.4 MG CAP PO SCH (18:09)
[2021-07-27 22:00] VITALS: BP 136/45
[2021-07-28] VITALS (8 sets, daily range): BP systolic 131–186; BP diastolic 52–74
[2021-07-28] MEDS: hydrALAZINE HCL 20 MG/ML VL IV PRN (05:11)
[2021-07-28] MEDS: SODIUM CHLOR 0.9% PF (SALINE LOCK) 10ML VIAL/SYR IV SCH ×3 (05:30→22:14)
[2021-07-28] MEDS: HEPARIN SODIUM (PORCINE) 5000 UNITS/ML 1ML VIAL SC SCH ×2 (10:23→22:16)
[2021-07-28] MEDS: amLODIPine BESYLATE 5 MG TAB PO SCH (10:26)
[2021-07-28] MEDS: LOSARTAN POTASSIUM 50 MG TAB PO SCH (10:26)
[2021-07-28] MEDS: CARVEDILOL 12.5 MG TAB PO SCH (10:27)
[2021-07-28] MEDS: FAMOTIDINE (10MG/ML) 2ML VL IV SCH ×2 (10:29→22:14)
[2021-07-28] MEDS: methylPREDNISolone SOD SUCC 40 MG/ML VL IV SCH ×2 (10:29→22:14)
[2021-07-28] MEDS: FUROSEMIDE 40 MG/4 ML VIAL IV SCH (10:29)
[2021-07-28] MEDS: TAMSULOSIN HYDROCHLORIDE 0.4 MG CAP PO SCH (17:42)
[2021-07-28] MEDS: ALBUTEROL SULF 2.5 MG/0.5ML(0.5%) NEB SOLN NEB PRN (20:16)
[2021-07-28] MEDS: IPRATROPIUM BROM 0.5 MG/2.5ML INH SOL NEB PRN (20:16)
[2021-07-28] MEDS: METOPROLOL TARTRATE 50 MG TAB PO SCH (22:56)
[2021-07-29] MEDS: hydrALAZINE HCL 20 MG/ML VL IV PRN (03:48)
[2021-07-29 05:00] VITALS: BP 187/81
[2021-07-29] MEDS: SODIUM CHLOR 0.9% PF (SALINE LOCK) 10ML VIAL/SYR IV SCH ×3 (05:40→22:47)
[2021-07-29 06:11] LABS: Potassium 4.2 mmol/L (3.5-5.1)
[2021-07-29 06:13] LABS: Magnesium 2.5 mg/dL (1.6-2.6)
[2021-07-29 09:00] VITALS: BP 114/61
[2021-07-29] MEDS: HEPARIN SODIUM (PORCINE) 5000 UNITS/ML 1ML VIAL SC SCH ×2 (10:15→22:52)
[2021-07-29] MEDS: FAMOTIDINE (10MG/ML) 2ML VL IV SCH ×2 (10:16→22:49)
[2021-07-29] MEDS: methylPREDNISolone SOD SUCC 40 MG/ML VL IV SCH ×2 (10:16→22:48)
[2021-07-29] MEDS: FUROSEMIDE 20 MG TAB PO SCH (10:19)
[2021-07-29] MEDS: METOPROLOL TARTRATE 50 MG TAB PO SCH ×2 (10:20→22:49)
[2021-07-29] MEDS: amLODIPine BESYLATE 5 MG TAB PO SCH (10:20)
[2021-07-29] MEDS: LOSARTAN POTASSIUM 50 MG TAB PO SCH (10:20)
[2021-07-29] MEDS ORDERED: IPRATROPIUM BROM 0.5 MG/2.5ML INH SOL NEB PRN (12:15)
[2021-07-29] MEDS ORDERED: ALBUTEROL SULF 2.5 MG/0.5ML(0.5%) NEB SOLN NEB PRN (12:15)
[2021-07-29] MEDS ORDERED: cefTRIAXone 1GM/50ML D5W 50 ML IV ONE (12:15)
[2021-07-29] MEDS ORDERED: PROMETHAZINE-DM 5 ML ORAL SYRUP PO PRN (12:15)
[2021-07-29 13:00] VITALS: BP 136/55
[2021-07-29] MEDS: PROMETHAZINE-DM 5 ML ORAL SYRUP PO PRN ×2 (15:16→22:50)
[2021-07-29] MEDS: ALBUTEROL SULF 2.5 MG/0.5ML(0.5%) NEB SOLN NEB SCH ×3 (15:29→22:34)
[2021-07-29] MEDS: IPRATROPIUM BROM 0.5 MG/2.5ML INH SOL NEB SCH ×3 (15:29→22:34)
[2021-07-29 17:00] VITALS: BP 157/61
[2021-07-29] MEDS: DOXYCYCLINE 100MG/250ML 250 ML IV SCH (18:06)
[2021-07-29] MEDS: TAMSULOSIN HYDROCHLORIDE 0.4 MG CAP PO SCH (18:29)
[2021-07-29 21:51] VITALS: BP 161/63
[2021-07-30] MEDS: DOXYCYCLINE 100MG/250ML 250 ML IV SCH ×2 (01:33→11:49)
[2021-07-30] MEDS: ALBUTEROL SULF 2.5 MG/0.5ML(0.5%) NEB SOLN NEB SCH ×5 (02:37→18:48)
[2021-07-30] MEDS: IPRATROPIUM BROM 0.5 MG/2.5ML INH SOL NEB SCH ×5 (02:37→18:49)
[2021-07-30 04:48] VITALS: BP 164/59
[2021-07-30] MEDS: SODIUM CHLOR 0.9% PF (SALINE LOCK) 10ML VIAL/SYR IV SCH ×3 (05:50→21:49)
[2021-07-30] MEDS ORDERED: cefTRIAXone 1GM/50ML D5W 50 ML IV SCH (09:00)
[2021-07-30] MEDS: LOSARTAN POTASSIUM 50 MG TAB PO SCH (10:00)
[2021-07-30] MEDS: METOPROLOL TARTRATE 50 MG TAB PO SCH ×2 (10:00→21:48)
[2021-07-30] MEDS: methylPREDNISolone SOD SUCC 40 MG/ML VL IV SCH (10:00)
[2021-07-30] MEDS: amLODIPine BESYLATE 5 MG TAB PO SCH (10:00)
[2021-07-30] MEDS: FUROSEMIDE 20 MG TAB PO SCH (10:00)
[2021-07-30] MEDS: HEPARIN SODIUM (PORCINE) 5000 UNITS/ML 1ML VIAL SC SCH ×2 (10:00→21:48)
[2021-07-30] MEDS ORDERED: predniSONE 20 MG TAB PO ONE (11:45)
[2021-07-30 13:00] VITALS: BP 117/69
[2021-07-30] MEDS ORDERED: DEXT1SYP9 PO (13:13)
[2021-07-30] MEDS ORDERED: ALBUAER3 IN (13:13)
[2021-07-30] MEDS ORDERED: PRED20TA2 PO (13:13)
[2021-07-30] MEDS ORDERED: NITR-87 PO (13:14)
[2021-07-30] MEDS ORDERED: NITROFURANTOIN 100 mg CAP PO ONE (13:15)
[2021-07-30] MEDS ORDERED: LINEZOLID 600MG TABLET PO ONE (13:45)
[2021-07-30] MEDS ORDERED: CEFUROXIME 250 MG TAB PO ONE (14:00)
[2021-07-30] MEDS: TAMSULOSIN HYDROCHLORIDE 0.4 MG CAP PO SCH (17:29)
[2021-07-30 17:57] VITALS: BP 120/73
[2021-07-30] MEDS: FAMOTIDINE 20 MG TAB PO SCH (21:46)
[2021-07-30 22:00] VITALS: BP 173/75
[2021-07-31 05:00] VITALS: BP 168/77
[2021-07-31] MEDS: hydrALAZINE HCL 20 MG/ML VL IV PRN (05:05)
[2021-07-31] MEDS: SODIUM CHLOR 0.9% PF (SALINE LOCK) 10ML VIAL/SYR IV SCH (05:31)
[2021-07-31] MEDS: IPRATROPIUM BROM 0.5 MG/2.5ML INH SOL NEB SCH ×2 (06:20→09:57)
[2021-07-31] MEDS: ALBUTEROL SULF 2.5 MG/0.5ML(0.5%) NEB SOLN NEB SCH ×2 (06:20→09:56)
[2021-07-31 08:00] VITALS: BP 142/47
[2021-07-31 09:06] VITALS: BP 142/47
[2021-07-31] MEDS ORDERED: CEFU500T43 PO (09:41)
[2021-07-31] MEDS ORDERED: LINE1TAB6 PO (09:41)
[2021-07-31] MEDS ORDERED: LINEZOLID 600MG TABLET PO SCH (10:00)
[2021-07-31] MEDS ORDERED: CEFUROXIME 250 MG TAB PO SCH (10:00)
[2021-07-31] MEDS: FUROSEMIDE 20 MG TAB PO SCH (10:25)
[2021-07-31] MEDS: LOSARTAN POTASSIUM 50 MG TAB PO SCH (10:25)
[2021-07-31] MEDS: METOPROLOL TARTRATE 50 MG TAB PO SCH (10:25)
[2021-07-31] MEDS: amLODIPine BESYLATE 5 MG TAB PO SCH (10:26)
[2021-07-31] MEDS: FAMOTIDINE 20 MG TAB PO SCH (10:26)
[2021-07-31] MEDS: HEPARIN SODIUM (PORCINE) 5000 UNITS/ML 1ML VIAL SC SCH (10:27)
[2021-07-31] MEDS ORDERED: NITR-87 PO (11:39)
== END 2021-07-31 10:40 | DRG 189 ==
LOC: EDBD 22:44 → ER 22:44 → TELE 07-26 02:17 → TELE-CENTR 07-26 14:19
PROVIDERS: ADMIT Nurse Practitioner Family; ATTEND Internal Medicine
DX: J96.21 Acute and chronic respiratory failure with hypoxia (principal); J44.1 Chronic obstructive pulmonary disease with (acute) exacerbation; E87.4 Mixed disorder of acid-base balance; J98.11 Atelectasis; N39.0 Urinary tract infection, site not specified; I50.32 Chronic diastolic (congestive) heart failure; I11.0 Hypertensive heart disease with heart failure; E66.01 Morbid (severe) obesity due to excess calories; B96.20 Unspecified Escherichia coli [E. coli] as the cause of diseases classified elsewhere; E78.5 Hyperlipidemia, unspecified; N40.0 Benign prostatic hyperplasia without lower urinary tract symptoms; Z95.0 Presence of cardiac pacemaker; Z99.81 Dependence on supplemental oxygen; Z86.73 Personal history of transient ischemic attack (TIA), and cerebral infarction without residual deficits; Z83.3 Family history of diabetes mellitus; Z87.891 Personal history of nicotine dependence; Z88.1 Allergy status to other antibiotic agents; Z88.0 Allergy status to penicillin; Z88.8 Allergy status to other drugs, medicaments and biological substances; Z68.33 Body mass index [BMI] 33.0-33.9, adult; I49.5 Sick sinus syndrome
CPT/HCPCS: 36415; 36600; 71045; 80048; 80053; 81001; 82805; 83735; 83880; 84132; 84484; 85025; 87081; 87086; 87088; 87186; 93005; 94640; 96374; 96375; 96376; 97116; 97530; G0378; J0696; J3490

== ENCOUNTER 2021-11-14 23:09 | Inpatient (IN) | payer MEDICARE, MEDICAID ==
[~2021-11-14] VITALS: Ht 180.3 cm; Wt 108.0 kg
[~2021-11-14 23:09] MED LIST changes: +ALBUAER3 IN; +DEXT1SYP9 PO; +LINE1TAB6 PO; +LORA-655 PO; +NITR-87 PO
[2021-11-14] MEDS ORDERED: ALBUTEROL SULF 2.5 MG/0.5ML(0.5%) NEB SOLN NEB ONE (23:15)
[2021-11-14] MEDS ORDERED: IPRATROPIUM BROM 0.5 MG/2.5ML INH SOL NEB ONE (23:15)
[2021-11-14] MEDS ORDERED: cefTRIAXone 1GM/50ML D5W 50 ML IV ONE (23:15)
[2021-11-14] MEDS ORDERED: methylPREDNISolone SOD SUCC 125 MG/2 ML VL IV ONE (23:15)
[2021-11-14 23:58] LABS: Basophils # (auto) 0.1 10 ^3/uL (0-0.2); Basophils % (auto) 1.1 % (0.0-2.0); Eosinophils # (auto) 0.7 10 ^3/uL (0-0.8); Eosinophils % (auto) 10.6 % (0.0-7.0); Hematocrit 37.7 % (41.0-53.0); Hemoglobin 12.4 g/dL (13.5-17.5); Lymphocytes # (auto) 1.9 10 ^3/uL (0.4-5.4); Lymphocytes % (auto) 29.3 % (10.0-50.0); Mean Corpuscular Hemoglobin 30.2 pg (28.0-32.0); Mean Corpuscular Hgb Conc. 32.8 g/dL (32.0-36.0); Monocytes # (auto) 0.7 10 ^3/uL (0-1.3); Monocytes % (auto) 10.3 % (0.0-12.0); Neutrophils # (auto) 3.2 10 ^3/uL (1.6-8.6); Neutrophils % (auto) 48.7 % (37.0-80.0); Nucleated Red Blood Cells % 0.1 %; Red Cell Distribution Width 13.5 % (11.8-14.3); White Blood Cell 6.6 10^3/uL (4.4-10.8)
[2021-11-15 00:15] LABS: Albumin 3.3 g/dL (3.4-5.0); BUN/Creatinine Ratio 16.4; Calcium 8.3 mg/dL (8.5-10.1); Potassium 4.5 mmol/L (3.5-5.1)
[2021-11-15 00:23] LABS: Bilirubin, Total 0.4 mg/dL (0.2-1.0); Total Protein 6.2 g/dL (6.4-8.2)
[2021-11-15] MEDS ORDERED: DOCUSATE SOD 100 MG CAP PO PRN (09:30)
[2021-11-15] MEDS ORDERED: MORPHINE SULFATE INJ 2 MG/ml SYRG IV PRN (09:30)
[2021-11-15] MEDS ORDERED: LORazepam 0.5 MG TAB PO PRN (09:30)
[2021-11-15] MEDS ORDERED: HYDROcodone-ACET 5/325MG TAB PO PRN (09:30)
[2021-11-15] MEDS ORDERED: guaiFENesin-DM 100/10mg/5ml SYR PO PRN (09:30)
[2021-11-15] MEDS ORDERED: NITROGLYCERIN 0.4 MG SL TAB SL PRN (09:30)
[2021-11-15] MEDS ORDERED: ONDANSETRON HCL 4 MG/2 ML VIAL IV PRN (09:30)
[2021-11-15] MEDS: METOPROLOL TARTRATE 50 MG TAB PO SCH ×2 (10:06→22:34)
[2021-11-15] MEDS: ASPirin-EC 81 mg tab PO SCH (10:06)
[2021-11-15] MEDS: LOSARTAN POTASSIUM 50 MG TAB PO SCH ×2 (10:07→22:33)
[2021-11-15] MEDS: POTASSIUM CHL 20 Meq TABLET PO SCH (10:07)
[2021-11-15] MEDS: CITALOPRAM HYDROBR 20 MG TAB PO SCH (10:07)
[2021-11-15] MEDS: FUROSEMIDE 20 MG TAB PO SCH (10:07)
[2021-11-15] MEDS: PANTOPRAZOLE 40 MG TAB PO SCH (10:09)
[2021-11-15] MEDS: amLODIPine BESYLATE 5 MG TAB PO SCH (10:09)
[2021-11-15] MEDS: ENOXAPARIN SOD 40 MG/0.4 ML SYRINGE SC SCH (10:10)
[2021-11-15 10:11] VITALS: BP 142/78
[2021-11-15] MEDS: IPRATROPIUM BROM 0.5 MG/2.5ML INH SOL NEB SCH ×2 (11:31→18:27)
[2021-11-15] MEDS: ALBUTEROL SULF 2.5 MG/0.5ML(0.5%) NEB SOLN NEB SCH ×2 (11:31→18:27)
[2021-11-15] MEDS: methylPREDNISolone SOD SUCC 125 MG/2 ML VL IV SCH ×3 (12:04→23:59)
[2021-11-15] MEDS ORDERED: HYDROmorphone HCL 2 MG/ML VL/or syr IV ONE (14:00)
[2021-11-15 15:38] LABS: Urine Bacteria NONE SEEN /hpf (None Seen); Urine Blood 2+ /uL (Negative); Urine Mucus FEW (None Seen); Urine Specific Gravity 1.014 (1.001-1.035); Urine WBC 54 /hpf (0 - 3)
[2021-11-15] MEDS: TAMSULOSIN HYDROCHLORIDE 0.4 MG CAP PO SCH (18:26)
[2021-11-15 23:23] VITALS: BP 160/68
[2021-11-15 23:24] VITALS: BP 161/67
[2021-11-16 04:44] VITALS: BP 179/81
[2021-11-16] MEDS: methylPREDNISolone SOD SUCC 125 MG/2 ML VL IV SCH ×3 (05:41→21:42)
[2021-11-16] MEDS: IPRATROPIUM BROM 0.5 MG/2.5ML INH SOL NEB SCH ×3 (06:41→19:14)
[2021-11-16] MEDS: ALBUTEROL SULF 2.5 MG/0.5ML(0.5%) NEB SOLN NEB SCH ×3 (06:41→19:14)
[2021-11-16 06:48] LABS: Basophils # (auto) 0 10 ^3/uL (0-0.2); Basophils % (auto) 0.1 % (0.0-2.0); Eosinophils # (auto) 0 10 ^3/uL (0-0.8); Hematocrit 38.4 % (41.0-53.0); Lymphocytes # (auto) 0.9 10 ^3/uL (0.4-5.4); Lymphocytes % (auto) 7.1 % (10.0-50.0); Mean Corpuscular Hemoglobin 30.4 pg (28.0-32.0); Mean Corpuscular Hgb Conc. 33.8 g/dL (32.0-36.0); Mean Corpuscular Volume 89.9 fL (80.0-100.0); Monocytes # (auto) 0.2 10 ^3/uL (0-1.3); Monocytes % (auto) 1.3 % (0.0-12.0); Neutrophils # (auto) 11.1 10 ^3/uL (1.6-8.6); Neutrophils % (auto) 91.5 % (37.0-80.0); Nucleated Red Blood Cells % 0.1 %; Red Blood Cells 4.27 10^6/uL (4.5-5.90); Red Cell Distribution Width 13.1 % (11.8-14.3); White Blood Cell 12.1 10^3/uL (4.4-10.8)
[2021-11-16 07:13] LABS: Albumin 3.4 g/dL (3.4-5.0); BUN/Creatinine Ratio 23.7; Bilirubin, Total 0.7 mg/dL (0.2-1.0); Calcium 8.7 mg/dL (8.5-10.1); Total Protein 6.6 g/dL (6.4-8.2)
[2021-11-16 09:20] VITALS: BP 119/65
[2021-11-16] MEDS: PANTOPRAZOLE 40 MG TAB PO SCH (10:00)
[2021-11-16] MEDS: cefTRIAXone 1GM/50ML D5W 50 ML IV SCH (10:00)
[2021-11-16] MEDS: FUROSEMIDE 20 MG TAB PO SCH (10:01)
[2021-11-16] MEDS: amLODIPine BESYLATE 5 MG TAB PO SCH (10:02)
[2021-11-16] MEDS: LOSARTAN POTASSIUM 50 MG TAB PO SCH ×2 (10:02→21:43)
[2021-11-16] MEDS: ASPirin-EC 81 mg tab PO SCH (10:03)
[2021-11-16] MEDS: CITALOPRAM HYDROBR 20 MG TAB PO SCH (10:03)
[2021-11-16] MEDS: METOPROLOL TARTRATE 50 MG TAB PO SCH ×2 (10:03→21:43)
[2021-11-16] MEDS: POTASSIUM CHL 20 Meq TABLET PO SCH (10:04)
[2021-11-16] MEDS: ENOXAPARIN SOD 40 MG/0.4 ML SYRINGE SC SCH (10:04)
[2021-11-16] MEDS: [UNRECOGNIZED DRUG - OTHER] IN SCH (10:11)
[2021-11-16] MEDS ORDERED: DOXYCYCLINE 100 MG TAB/CAP PO ONE (12:30)
[2021-11-16 13:00] VITALS: BP 156/61
[2021-11-16 16:43] VITALS: BP 121/83
[2021-11-16] MEDS: TAMSULOSIN HYDROCHLORIDE 0.4 MG CAP PO SCH (17:20)
[2021-11-16] MEDS: DOXYCYCLINE 100 MG TAB/CAP PO SCH (21:42)
[2021-11-16 21:48] VITALS: BP 145/57
[2021-11-17 04:36] VITALS: BP 177/73
[2021-11-17] MEDS: methylPREDNISolone SOD SUCC 125 MG/2 ML VL IV SCH ×2 (05:44→14:22)
[2021-11-17 06:08] VITALS: BP 155/56
[2021-11-17] MEDS: IPRATROPIUM BROM 0.5 MG/2.5ML INH SOL NEB SCH ×3 (06:39→18:08)
[2021-11-17] MEDS: ALBUTEROL SULF 2.5 MG/0.5ML(0.5%) NEB SOLN NEB SCH ×3 (06:39→18:08)
[2021-11-17 08:58] VITALS: BP 144/64
[2021-11-17] MEDS: [UNRECOGNIZED DRUG - OTHER] IN SCH (10:00)
[2021-11-17] MEDS: FUROSEMIDE 20 MG TAB PO SCH (10:31)
[2021-11-17] MEDS: POTASSIUM CHL 20 Meq TABLET PO SCH (10:31)
[2021-11-17] MEDS: ASPirin-EC 81 mg tab PO SCH (10:31)
[2021-11-17] MEDS: DOXYCYCLINE 100 MG TAB/CAP PO SCH ×2 (10:32→22:16)
[2021-11-17] MEDS: METOPROLOL TARTRATE 50 MG TAB PO SCH ×2 (10:32→22:15)
[2021-11-17] MEDS: cefTRIAXone 1GM/50ML D5W 50 ML IV SCH (10:33)
[2021-11-17] MEDS: CITALOPRAM HYDROBR 20 MG TAB PO SCH (10:33)
[2021-11-17] MEDS: LOSARTAN POTASSIUM 50 MG TAB PO SCH ×2 (10:33→22:16)
[2021-11-17] MEDS: ENOXAPARIN SOD 40 MG/0.4 ML SYRINGE SC SCH (10:34)
[2021-11-17] MEDS: PANTOPRAZOLE 40 MG TAB PO SCH (10:35)
[2021-11-17 16:55] VITALS: BP 174/70
[2021-11-17] MEDS: TAMSULOSIN HYDROCHLORIDE 0.4 MG CAP PO SCH (18:20)
[2021-11-17] MEDS: hydrALAZINE HCL 20 MG/ML VL IV PRN (19:20)
[2021-11-17 22:00] VITALS: BP 126/66
[2021-11-18] MEDS: hydrALAZINE HCL 20 MG/ML VL IV PRN (04:42)
[2021-11-18 05:00] VITALS: BP 139/75
[2021-11-18 06:02] VITALS: BP 156/68
[2021-11-18] MEDS: ALBUTEROL SULF 2.5 MG/0.5ML(0.5%) NEB SOLN NEB SCH ×3 (06:19→12:00)
[2021-11-18] MEDS: IPRATROPIUM BROM 0.5 MG/2.5ML INH SOL NEB SCH ×3 (06:19→12:00)
[2021-11-18 09:00] VITALS: BP 162/69
[2021-11-18] MEDS ORDERED: predniSONE 20 MG TAB PO SCH (10:00)
[2021-11-18] MEDS: CITALOPRAM HYDROBR 20 MG TAB PO SCH (10:01)
[2021-11-18] MEDS: POTASSIUM CHL 20 Meq TABLET PO SCH (10:02)
[2021-11-18] MEDS: FUROSEMIDE 20 MG TAB PO SCH (10:02)
[2021-11-18] MEDS: ASPirin-EC 81 mg tab PO SCH (10:02)
[2021-11-18] MEDS: LOSARTAN POTASSIUM 50 MG TAB PO SCH (10:02)
[2021-11-18] MEDS: DOXYCYCLINE 100 MG TAB/CAP PO SCH (10:03)
[2021-11-18] MEDS: ENOXAPARIN SOD 40 MG/0.4 ML SYRINGE SC SCH (10:03)
[2021-11-18] MEDS: PANTOPRAZOLE 40 MG TAB PO SCH (10:03)
[2021-11-18] MEDS: METOPROLOL TARTRATE 50 MG TAB PO SCH (10:04)
[2021-11-18] MEDS: [UNRECOGNIZED DRUG - OTHER] IN SCH (11:22)
[2021-11-18 11:36] VITALS: BP 161/72
[2021-11-18] MEDS ORDERED: DOX100T PO (12:40)
[2021-11-18] MEDS ORDERED: PRED20TA2 PO (12:40)
[2021-11-18] MEDS ORDERED: CEFU500T43 PO (12:44)
[2021-11-18 13:00] VITALS: BP 147/54
[2021-11-18 14:02] VITALS: BP 163/74
== END 2021-11-18 15:48 | disposition home or self-care (01) | DRG 189 ==
LOC: ER 23:09 → EDBD 23:09 → EDUNIT# 23:09 → TELE-WESTW 11-15 02:19 → TELE 11-15 09:20 → TELE-WESTW 11-15 22:55 → WEST WING 11-17 04:01
PROVIDERS: ADMIT Nurse Practitioner Family; ATTEND Internal Medicine
DX: J96.21 Acute and chronic respiratory failure with hypoxia (principal); J18.9 Pneumonia, unspecified organism; J44.1 Chronic obstructive pulmonary disease with (acute) exacerbation; I50.32 Chronic diastolic (congestive) heart failure; N39.0 Urinary tract infection, site not specified; E44.1 Mild protein-calorie malnutrition; I11.0 Hypertensive heart disease with heart failure; Z20.822 Contact with and (suspected) exposure to COVID-19; E66.9 Obesity, unspecified; N40.0 Benign prostatic hyperplasia without lower urinary tract symptoms; Z68.33 Body mass index [BMI] 33.0-33.9, adult
CPT/HCPCS: 36415; 71045; 80053; 81001; 83880; 84484; 85025; 94640; 96365; 96375; G0378; J0696

== ENCOUNTER 2021-12-01 01:52 | Inpatient (IN) | payer MEDICARE, MEDICAID ==
[~2021-12-01] VITALS: Ht 175.3 cm; Wt 104.8 kg
[~2021-12-01 01:52] MED LIST changes: +CEFU500T43 PO
[2021-12-01 02:55] LABS: Basophils # (auto) 0 10 ^3/uL (0-0.2); Basophils % (auto) 0.6 % (0.0-2.0); Eosinophils # (auto) 0.6 10 ^3/uL (0-0.8); Eosinophils % (auto) 8.1 % (0.0-7.0); Hematocrit 36.8 % (41.0-53.0); Hemoglobin 12.1 g/dL (13.5-17.5); Lymphocytes # (auto) 1.3 10 ^3/uL (0.4-5.4); Lymphocytes % (auto) 17.4 % (10.0-50.0); Mean Corpuscular Hemoglobin 30.2 pg (28.0-32.0); Mean Corpuscular Volume 91.6 fL (80.0-100.0); Monocytes # (auto) 0.5 10 ^3/uL (0-1.3); Monocytes % (auto) 6.8 % (0.0-12.0); Neutrophils % (auto) 67.1 % (37.0-80.0); Nucleated Red Blood Cells % 0.1 %; Red Blood Cells 4.02 10^6/uL (4.5-5.90); Red Cell Distribution Width 13.5 % (11.8-14.3); White Blood Cell 7.4 10^3/uL (4.4-10.8)
[2021-12-01] MEDS ORDERED: BUDESONIDE (INHALATION) 0.5 MG/2 ML NEB NEB ONE (03:00)
[2021-12-01] MEDS ORDERED: DexAMETHasone SOD PHOS 10MG/1ML VIAL INJ IV ONE (03:00)
[2021-12-01 03:12] LABS: Albumin 3.2 g/dL (3.4-5.0); BUN/Creatinine Ratio 15.6; Calcium 8.2 mg/dL (8.5-10.1); Potassium 4.1 mmol/L (3.5-5.1)
[2021-12-01 03:15] LABS: Bilirubin, Total 0.6 mg/dL (0.2-1.0); Total Protein 6.3 g/dL (6.4-8.2)
[2021-12-01] MEDS ORDERED: IPRATROPIUM BROM 0.5 MG/2.5ML INH SOL NEB ONE (03:15)
[2021-12-01] MEDS ORDERED: ALBUTEROL SULF 2.5 MG/0.5ML(0.5%) NEB SOLN NEB ONE (03:15)
[2021-12-01] MEDS ORDERED: HYDROcodone-ACET 5/325MG TAB PO PRN (06:15)
[2021-12-01] MEDS ORDERED: MORPHINE SULFATE INJ 2 MG/ml SYRG IV PRN (06:15)
[2021-12-01] MEDS ORDERED: ALBUTEROL SULF 2.5 MG/0.5ML(0.5%) NEB SOLN NEB PRN (06:15)
[2021-12-01] MEDS ORDERED: NITROGLYCERIN 0.4 MG SL TAB SL PRN (06:15)
[2021-12-01] MEDS ORDERED: IPRATROPIUM BROM 0.5 MG/2.5ML INH SOL NEB PRN (06:15)
[2021-12-01] MEDS ORDERED: ACETAMINOPHEN 325 MG TAB PO PRN (06:15)
[2021-12-01] MEDS ORDERED: ONDANSETRON HCL 4 MG/2 ML VIAL IV PRN (06:15)
[2021-12-01] MEDS ORDERED: DOCUSATE SOD 100 MG CAP PO PRN (06:15)
[2021-12-01 07:31] LABS: Basophils # (auto) 0 10 ^3/uL (0-0.2); Basophils % (auto) 0.3 % (0.0-2.0); Eosinophils # (auto) 0.4 10 ^3/uL (0-0.8); Eosinophils % (auto) 4.4 % (0.0-7.0); Hematocrit 38.1 % (41.0-53.0); Hemoglobin 12.4 g/dL (13.5-17.5); Lymphocytes # (auto) 0.6 10 ^3/uL (0.4-5.4); Lymphocytes % (auto) 6.9 % (10.0-50.0); Mean Corpuscular Hemoglobin 30.1 pg (28.0-32.0); Mean Corpuscular Hgb Conc. 32.6 g/dL (32.0-36.0); Mean Corpuscular Volume 92.3 fL (80.0-100.0); Monocytes # (auto) 0.2 10 ^3/uL (0-1.3); Monocytes % (auto) 2.5 % (0.0-12.0); Neutrophils # (auto) 7.3 10 ^3/uL (1.6-8.6); Neutrophils % (auto) 85.9 % (37.0-80.0); Red Blood Cells 4.13 10^6/uL (4.5-5.90); Red Cell Distribution Width 13.6 % (11.8-14.3); White Blood Cell 8.5 10^3/uL (4.4-10.8)
[2021-12-01 07:54] LABS: Albumin 3.3 g/dL (3.4-5.0); BUN/Creatinine Ratio 14.4; Calcium 8.6 mg/dL (8.5-10.1); Potassium 5.3 mmol/L (3.5-5.1)
[2021-12-01 07:57] LABS: Bilirubin, Total 0.7 mg/dL (0.2-1.0); Total Protein 6.4 g/dL (6.4-8.2)
[2021-12-01] MEDS: FAMOTIDINE (10MG/ML) 2ML VL IV SCH (10:37)
[2021-12-01] MEDS: METOPROLOL TARTRATE 50 MG TAB PO SCH ×2 (10:38→22:05)
[2021-12-01] MEDS: ASPirin 81 mg TAB PO SCH (10:38)
[2021-12-01] MEDS: SODIUM CHLOR 0.9% PF (SALINE LOCK) 10ML VIAL/SYR IV SCH ×2 (14:05→22:05)
[2021-12-01] MEDS: methylPREDNISolone SOD SUCC 40 MG/ML VL IV SCH ×2 (14:24→22:05)
[2021-12-01] MEDS: hydrALAZINE HCL 20 MG/ML VL IV PRN ×2 (16:37→23:20)
[2021-12-01 20:11] VITALS: BP 178/70
[2021-12-01 23:54] VITALS: BP 152/63
[2021-12-02] VITALS (8 sets, daily range): BP systolic 129–164; BP diastolic 63–77
[2021-12-02] MEDS: methylPREDNISolone SOD SUCC 40 MG/ML VL IV SCH ×3 (06:19→22:23)
[2021-12-02] MEDS: SODIUM CHLOR 0.9% PF (SALINE LOCK) 10ML VIAL/SYR IV SCH ×3 (06:19→22:23)
[2021-12-02 07:40] LABS: Basophils # (auto) 0 10 ^3/uL (0-0.2); Basophils % (auto) 0.1 % (0.0-2.0); Eosinophils # (auto) 0 10 ^3/uL (0-0.8); Hematocrit 36.7 % (41.0-53.0); Hemoglobin 12.4 g/dL (13.5-17.5); Lymphocytes # (auto) 0.6 10 ^3/uL (0.4-5.4); Lymphocytes % (auto) 5.9 % (10.0-50.0); Mean Corpuscular Hemoglobin 30.6 pg (28.0-32.0); Mean Corpuscular Hgb Conc. 33.7 g/dL (32.0-36.0); Mean Corpuscular Volume 90.6 fL (80.0-100.0); Monocytes # (auto) 0.2 10 ^3/uL (0-1.3); Monocytes % (auto) 1.7 % (0.0-12.0); Neutrophils # (auto) 9.7 10 ^3/uL (1.6-8.6); Neutrophils % (auto) 92.3 % (37.0-80.0); Red Blood Cells 4.05 10^6/uL (4.5-5.90); Red Cell Distribution Width 13.7 % (11.8-14.3); White Blood Cell 10.5 10^3/uL (4.4-10.8)
[2021-12-02 08:07] LABS: Albumin 3.1 g/dL (3.4-5.0); Calcium 8.3 mg/dL (8.5-10.1); Potassium 4.2 mmol/L (3.5-5.1)
[2021-12-02 08:11] LABS: Bilirubin, Total 0.5 mg/dL (0.2-1.0); Total Protein 6.2 g/dL (6.4-8.2)
[2021-12-02] MEDS: FAMOTIDINE (10MG/ML) 2ML VL IV SCH (09:49)
[2021-12-02] MEDS: METOPROLOL TARTRATE 50 MG TAB PO SCH ×2 (09:49→22:22)
[2021-12-02] MEDS: ASPirin 81 mg TAB PO SCH (09:49)
[2021-12-02] MEDS ORDERED: FUROSEMIDE 20 MG/2 ML VIAL IV ONE (11:30)
[2021-12-02] MEDS: DOXYCYCLINE 100MG/250ML 250 ML IV SCH ×2 (12:14→23:45)
[2021-12-02] MEDS: hydrALAZINE HCL 20 MG/ML VL IV PRN (12:15)
[2021-12-02] MEDS: IPRATROPIUM BROM 0.5 MG/2.5ML INH SOL NEB SCH ×3 (13:02→22:24)
[2021-12-02] MEDS: ALBUTEROL SULF 2.5 MG/0.5ML(0.5%) NEB SOLN NEB SCH ×3 (13:03→22:24)
[2021-12-02] MEDS: TAMSULOSIN HYDROCHLORIDE 0.4 MG CAP PO SCH (17:44)
[2021-12-03 03:06] LABS: Urine Bacteria FEW /hpf (None Seen); Urine Blood Negative /uL (Negative); Urine Specific Gravity 1.022 (1.001-1.035); Urine WBC 10 /hpf (0 - 3)
[2021-12-03 05:00] VITALS: BP 126/69
[2021-12-03] MEDS: methylPREDNISolone SOD SUCC 40 MG/ML VL IV SCH ×2 (06:05→21:48)
[2021-12-03] MEDS: SODIUM CHLOR 0.9% PF (SALINE LOCK) 10ML VIAL/SYR IV SCH ×3 (06:05→21:58)
[2021-12-03] MEDS: IPRATROPIUM BROM 0.5 MG/2.5ML INH SOL NEB SCH ×5 (06:27→22:07)
[2021-12-03] MEDS: ALBUTEROL SULF 2.5 MG/0.5ML(0.5%) NEB SOLN NEB SCH ×5 (06:28→22:07)
[2021-12-03 06:54] LABS: Calcium 8.8 mg/dL (8.5-10.1); Potassium 4.6 mmol/L (3.5-5.1)
[2021-12-03 06:55] LABS: Basophils # (auto) 0 10 ^3/uL (0-0.2); Basophils % (auto) 0.1 % (0.0-2.0); Eosinophils # (auto) 0 10 ^3/uL (0-0.8); Hematocrit 35.6 % (41.0-53.0); Hemoglobin 11.9 g/dL (13.5-17.5); Lymphocytes # (auto) 0.6 10 ^3/uL (0.4-5.4); Lymphocytes % (auto) 4.5 % (10.0-50.0); Mean Corpuscular Hemoglobin 30.3 pg (28.0-32.0); Mean Corpuscular Hgb Conc. 33.4 g/dL (32.0-36.0); Mean Corpuscular Volume 90.6 fL (80.0-100.0); Monocytes # (auto) 0.2 10 ^3/uL (0-1.3); Monocytes % (auto) 1.6 % (0.0-12.0); Neutrophils # (auto) 12.1 10 ^3/uL (1.6-8.6); Neutrophils % (auto) 93.8 % (37.0-80.0); Red Blood Cells 3.92 10^6/uL (4.5-5.90); Red Cell Distribution Width 13.8 % (11.8-14.3); White Blood Cell 12.9 10^3/uL (4.4-10.8)
[2021-12-03 06:56] LABS: BUN/Creatinine Ratio 27.8
[2021-12-03 08:00] VITALS: BP 133/61
[2021-12-03 09:05] VITALS: BP 132/72
[2021-12-03] MEDS: PANTOPRAZOLE 40 MG TAB PO SCH (09:45)
[2021-12-03] MEDS: ASPirin 81 mg TAB PO SCH (09:46)
[2021-12-03] MEDS: amLODIPine BESYLATE 5 MG TAB PO SCH (09:50)
[2021-12-03] MEDS: FUROSEMIDE 20 MG TAB PO SCH (09:50)
[2021-12-03] MEDS: METOPROLOL TARTRATE 50 MG TAB PO SCH ×2 (09:51→21:46)
[2021-12-03] MEDS: DOXYCYCLINE 100MG/250ML 250 ML IV SCH (12:30)
[2021-12-03 14:25] VITALS: BP 171/58
[2021-12-03] MEDS: TAMSULOSIN HYDROCHLORIDE 0.4 MG CAP PO SCH (18:21)
[2021-12-03 20:00] VITALS: BP 147/75
[2021-12-03 23:18] VITALS: BP 157/62
[2021-12-04] MEDS: DOXYCYCLINE 100MG/250ML 250 ML IV SCH ×2 (00:08→11:41)
[2021-12-04] MEDS: hydrALAZINE HCL 20 MG/ML VL IV PRN ×2 (04:22→13:05)
[2021-12-04 04:44] VITALS: BP 174/75
[2021-12-04] MEDS: SODIUM CHLOR 0.9% PF (SALINE LOCK) 10ML VIAL/SYR IV SCH ×2 (05:33→15:39)
[2021-12-04] MEDS: ALBUTEROL SULF 2.5 MG/0.5ML(0.5%) NEB SOLN NEB SCH ×4 (07:07→18:28)
[2021-12-04] MEDS: IPRATROPIUM BROM 0.5 MG/2.5ML INH SOL NEB SCH ×4 (07:07→18:28)
[2021-12-04 09:00] VITALS: BP 149/65
[2021-12-04] MEDS: ASPirin 81 mg TAB PO SCH (09:27)
[2021-12-04] MEDS: PANTOPRAZOLE 40 MG TAB PO SCH (09:28)
[2021-12-04] MEDS: FUROSEMIDE 20 MG TAB PO SCH (09:28)
[2021-12-04] MEDS: METOPROLOL TARTRATE 50 MG TAB PO SCH (09:28)
[2021-12-04] MEDS: methylPREDNISolone SOD SUCC 40 MG/ML VL IV SCH (09:29)
[2021-12-04] MEDS: amLODIPine BESYLATE 5 MG TAB PO SCH (09:29)
[2021-12-04 13:00] VITALS: BP 170/73
[2021-12-04 16:48] VITALS: BP 163/65
[2021-12-04] MEDS: TAMSULOSIN HYDROCHLORIDE 0.4 MG CAP PO SCH (18:51)
== END 2021-12-04 20:23 | DRG 193 ==
LOC: EDBD 01:52 → EDUNIT# 01:52 → ER 01:55 → TELE 06:31 → TELE-WESTW 22:55 → WEST WING 12-02 21:23 → TELE-WESTW 12-03 08:12
PROVIDERS: ADMIT Nurse Practitioner Family; ATTEND Internal Medicine
DX: J18.9 Pneumonia, unspecified organism (principal); I50.33 Acute on chronic diastolic (congestive) heart failure; J96.21 Acute and chronic respiratory failure with hypoxia; J44.1 Chronic obstructive pulmonary disease with (acute) exacerbation; E46 Unspecified protein-calorie malnutrition; J44.0 Chronic obstructive pulmonary disease with (acute) lower respiratory infection; I11.0 Hypertensive heart disease with heart failure; Z20.822 Contact with and (suspected) exposure to COVID-19; E66.01 Morbid (severe) obesity due to excess calories; Z72.0 Tobacco use; Z83.3 Family history of diabetes mellitus; Z86.73 Personal history of transient ischemic attack (TIA), and cerebral infarction without residual deficits; Z95.0 Presence of cardiac pacemaker; Z68.34 Body mass index [BMI] 34.0-34.9, adult; Z88.1 Allergy status to other antibiotic agents; Z88.0 Allergy status to penicillin; Z88.8 Allergy status to other drugs, medicaments and biological substances
CPT/HCPCS: 36415; 71045; 80048; 80053; 81001; 83605; 83880; 84484; 85025; 87040; 87426; 93005; 94640; 96374; G0378; J1100; J3490

== ENCOUNTER 2022-01-24 19:03 | Inpatient (IN) | payer MEDICARE, MEDICAID ==
[~2022-01-24] VITALS: Ht 182.9 cm; Wt 108.2 kg
[2022-01-24] MEDS ORDERED: ALBUTEROL SULF 2.5 MG/0.5ML(0.5%) NEB SOLN NEB ONE (19:45)
[2022-01-24] MEDS ORDERED: IPRATROPIUM BROM 0.5 MG/2.5ML INH SOL NEB ONE (19:45)
[2022-01-24] MEDS ORDERED: methylPREDNISolone SOD SUCC 125 MG/2 ML VL IV ONE (20:30)
[2022-01-24] MEDS ORDERED: IPRATROPIUM BROM 0.5 MG/2.5ML INH SOL HHN ONE (20:30)
[2022-01-24] MEDS ORDERED: levoFLOXacin 500MG 100 ML IV ONE (20:30)
[2022-01-24] MEDS ORDERED: ALBUTEROL SULF 2.5 MG/0.5ML(0.5%) NEB SOLN HHN ONE (20:30)
[2022-01-24 21:12] LABS: Albumin 3.6 g/dL (3.4-5.0)
[2022-01-24 21:16] LABS: BUN/Creatinine Ratio 15.2; Bilirubin, Total 0.4 mg/dL (0.2-1.0); Total Protein 6.6 g/dL (6.4-8.2)
[2022-01-24 21:18] VITALS: BP 150/77
[2022-01-24 21:18] LABS: Basophils # (auto) 0.1 10 ^3/uL (0-0.2); Basophils % (auto) 0.8 % (0.0-2.0); Eosinophils # (auto) 0.4 10 ^3/uL (0-0.8); Eosinophils % (auto) 5.5 % (0.0-7.0); Hematocrit 37.7 % (41.0-53.0); Hemoglobin 12.6 g/dL (13.5-17.5); Lymphocytes % (auto) 26.7 % (10.0-50.0); Mean Corpuscular Hemoglobin 30.8 pg (28.0-32.0); Mean Corpuscular Hgb Conc. 33.3 g/dL (32.0-36.0); Mean Corpuscular Volume 92.3 fL (80.0-100.0); Monocytes # (auto) 0.8 10 ^3/uL (0-1.3); Monocytes % (auto) 10.1 % (0.0-12.0); Neutrophils # (auto) 4.3 10 ^3/uL (1.6-8.6); Neutrophils % (auto) 56.9 % (37.0-80.0); Nucleated Red Blood Cells % 0.2 %; Red Blood Cells 4.08 10^6/uL (4.5-5.90); Red Cell Distribution Width 14.7 % (11.8-14.3); White Blood Cell 7.6 10^3/uL (4.4-10.8)
[2022-01-24 21:32] LABS: INR 1.03 (0.9-1.15); Partial Thromboplastin Time 26.9 sec (24.6-33.4)
[2022-01-24] MEDS: IPRATROPIUM BROM 0.5 MG/2.5ML INH SOL NEB SCH (22:16)
[2022-01-24] MEDS: ALBUTEROL SULF 2.5 MG/0.5ML(0.5%) NEB SOLN NEB SCH (22:16)
[2022-01-24] MEDS ORDERED: ACETAMINOPHEN 325 MG TAB PO PRN (23:30)
[2022-01-24] MEDS ORDERED: ONDANSETRON HCL 4 MG/2 ML VIAL IV PRN (23:30)
[2022-01-24] MEDS ORDERED: ALBUTEROL SULF 2.5 MG/0.5ML(0.5%) NEB SOLN NEB PRN (23:30)
[2022-01-24] MEDS: DOXYCYCLINE 100MG/250ML 250 ML IV SCH (23:45)
[2022-01-25] MEDS: IPRATROPIUM BROM 0.5 MG/2.5ML INH SOL NEB SCH ×6 (02:00→22:29)
[2022-01-25] MEDS: ALBUTEROL SULF 2.5 MG/0.5ML(0.5%) NEB SOLN NEB SCH ×6 (02:00→22:29)
[2022-01-25] MEDS ORDERED: IOHEXOL 350 MG/ML 100ML IJ ONE (05:31)
[2022-01-25] MEDS ORDERED: IPRATROPIUM BROM 0.5 MG/2.5ML INH SOL NEB SCH (06:00)
[2022-01-25 07:17] LABS: Basophils # (auto) 0 10 ^3/uL (0-0.2); Basophils % (auto) 0.3 % (0.0-2.0); Eosinophils # (auto) 0 10 ^3/uL (0-0.8); Eosinophils % (auto) 0.1 % (0.0-7.0); Hemoglobin 13.1 g/dL (13.5-17.5); Lymphocytes # (auto) 0.6 10 ^3/uL (0.4-5.4); Mean Corpuscular Hemoglobin 30.2 pg (28.0-32.0); Mean Corpuscular Hgb Conc. 32.7 g/dL (32.0-36.0); Mean Corpuscular Volume 92.6 fL (80.0-100.0); Monocytes # (auto) 0.1 10 ^3/uL (0-1.3); Monocytes % (auto) 1.4 % (0.0-12.0); Neutrophils % (auto) 87.2 % (37.0-80.0); Nucleated Red Blood Cells % 0.1 %; Red Blood Cells 4.32 10^6/uL (4.5-5.90); Red Cell Distribution Width 14.8 % (11.8-14.3); White Blood Cell 5.8 10^3/uL (4.4-10.8)
[2022-01-25 07:37] LABS: Albumin 3.3 g/dL (3.4-5.0); Calcium 9.3 mg/dL (8.5-10.1); Potassium 4.8 mmol/L (3.5-5.1)
[2022-01-25 07:40] LABS: Bilirubin, Total 0.4 mg/dL (0.2-1.0)
[2022-01-25] MEDS: FUROSEMIDE 40 MG TAB PO SCH (10:00)
[2022-01-25] MEDS: METOPROLOL TARTRATE 50 MG TAB PO SCH ×2 (10:00→22:20)
[2022-01-25] MEDS: POTASSIUM CHL 10 Meq TABLET PO SCH (10:00)
[2022-01-25] MEDS: amLODIPine BESYLATE 5 MG TAB PO SCH (10:00)
[2022-01-25] MEDS: PANTOPRAZOLE 40 MG TAB PO SCH (10:00)
[2022-01-25] MEDS: LOSARTAN POTASSIUM 50 MG TAB PO SCH (10:00)
[2022-01-25] MEDS: ENOXAPARIN SOD 40 MG/0.4 ML SYRINGE SC SCH (10:00)
[2022-01-25] MEDS: DOXYCYCLINE 100MG/250ML 250 ML IV SCH ×2 (11:48→23:30)
[2022-01-25 18:00] VITALS: BP 165/65
[2022-01-25] MEDS: TAMSULOSIN HYDROCHLORIDE 0.4 MG CAP PO SCH (18:43)
[2022-01-25] MEDS ORDERED: DIVA1TAB37 PO (18:59)
[2022-01-25] MEDS ORDERED: UMEC1AER INH (18:59)
[2022-01-25 20:00] VITALS: BP 120/58
[2022-01-25 22:00] VITALS: BP 130/58
[2022-01-26] MEDS: IPRATROPIUM BROM 0.5 MG/2.5ML INH SOL NEB SCH ×6 (02:24→22:03)
[2022-01-26] MEDS: ALBUTEROL SULF 2.5 MG/0.5ML(0.5%) NEB SOLN NEB SCH ×6 (02:24→22:03)
[2022-01-26 05:00] VITALS: BP 151/65
[2022-01-26 08:15] LABS: Urine Amorphous Crystal FEW /hpf (None Seen); Urine Bacteria MOD /hpf (None Seen); Urine Blood 2+ /uL (Negative); Urine Hyaline Cast MOD /lpf (0 - 2); Urine Mucus FEW (None Seen); Urine Specific Gravity 1.025 (1.001-1.035); Urine WBC 36 /hpf (0 - 3); Urine WBC Clumps PRESENT /hpf (None Seen)
[2022-01-26 09:00] VITALS: BP 134/62
[2022-01-26] MEDS: PANTOPRAZOLE 40 MG TAB PO SCH (09:57)
[2022-01-26] MEDS: amLODIPine BESYLATE 5 MG TAB PO SCH (09:58)
[2022-01-26] MEDS: POTASSIUM CHL 10 Meq TABLET PO SCH (09:58)
[2022-01-26] MEDS: FUROSEMIDE 40 MG TAB PO SCH (09:58)
[2022-01-26] MEDS: LOSARTAN POTASSIUM 50 MG TAB PO SCH (09:59)
[2022-01-26] MEDS: METOPROLOL TARTRATE 50 MG TAB PO SCH ×2 (09:59→22:11)
[2022-01-26] MEDS: ENOXAPARIN SOD 40 MG/0.4 ML SYRINGE SC SCH (10:00)
[2022-01-26] MEDS: DOXYCYCLINE 100MG/250ML 250 ML IV SCH ×2 (12:20→23:23)
[2022-01-26 13:00] VITALS: BP 148/62
[2022-01-26 17:00] VITALS: BP 154/63
[2022-01-26] MEDS: TAMSULOSIN HYDROCHLORIDE 0.4 MG CAP PO SCH (17:48)
[2022-01-26 22:00] VITALS: BP 124/58
[2022-01-27] VITALS (9 sets, daily range): BP systolic 123–238; BP diastolic 45–115
[2022-01-27] MEDS ORDERED: ALBUTEROL SULF 2.5 MG/0.5ML(0.5%) NEB SOLN NEB ONE (01:00)
[2022-01-27] MEDS: ALBUTEROL SULF 2.5 MG/0.5ML(0.5%) NEB SOLN NEB SCH ×6 (07:06→22:25)
[2022-01-27] MEDS: IPRATROPIUM BROM 0.5 MG/2.5ML INH SOL NEB SCH ×6 (07:06→22:25)
[2022-01-27] MEDS ORDERED: ALBUTEROL SULF 2.5 MG/0.5ML(0.5%) NEB SOLN ONE (08:20)
[2022-01-27] MEDS ORDERED: IPRATROPIUM BROM 0.5 MG/2.5ML INH SOL ONE (08:20)
[2022-01-27] MEDS ORDERED: FUROSEMIDE 40 MG/4 ML VIAL IV ONE (08:30)
[2022-01-27] MEDS ORDERED: hydrALAZINE HCL 20 MG/ML VL IV ONE (08:30)
[2022-01-27] MEDS: FUROSEMIDE 40 MG TAB PO SCH (10:00)
[2022-01-27] MEDS: amLODIPine BESYLATE 5 MG TAB PO SCH (11:03)
[2022-01-27] MEDS: LOSARTAN POTASSIUM 50 MG TAB PO SCH (11:03)
[2022-01-27] MEDS: POTASSIUM CHL 10 Meq TABLET PO SCH (11:03)
[2022-01-27] MEDS: METOPROLOL TARTRATE 50 MG TAB PO SCH ×2 (11:04→21:36)
[2022-01-27] MEDS: PANTOPRAZOLE 40 MG TAB PO SCH (11:04)
[2022-01-27] MEDS: ENOXAPARIN SOD 40 MG/0.4 ML SYRINGE SC SCH (11:07)
[2022-01-27] MEDS: DOXYCYCLINE 100MG/250ML 250 ML IV SCH ×2 (11:07→23:53)
[2022-01-27] MEDS ORDERED: ASPirin 81 mg TAB PO ONE (11:15)
[2022-01-27 11:41] LABS: Basophils # (auto) 0 10 ^3/uL (0-0.2); Basophils % (auto) 0.4 % (0.0-2.0); Eosinophils # (auto) 0.2 10 ^3/uL (0-0.8); Eosinophils % (auto) 2.7 % (0.0-7.0); Hematocrit 38.4 % (41.0-53.0); Hemoglobin 12.6 g/dL (13.5-17.5); Lymphocytes # (auto) 1.3 10 ^3/uL (0.4-5.4); Lymphocytes % (auto) 16.5 % (10.0-50.0); Mean Corpuscular Hemoglobin 30.5 pg (28.0-32.0); Mean Corpuscular Hgb Conc. 32.9 g/dL (32.0-36.0); Mean Corpuscular Volume 92.8 fL (80.0-100.0); Monocytes # (auto) 0.7 10 ^3/uL (0-1.3); Monocytes % (auto) 8.8 % (0.0-12.0); Neutrophils # (auto) 5.8 10 ^3/uL (1.6-8.6); Neutrophils % (auto) 71.6 % (37.0-80.0); Nucleated Red Blood Cells % 0.1 %; Red Blood Cells 4.14 10^6/uL (4.5-5.90); Red Cell Distribution Width 14.6 % (11.8-14.3); White Blood Cell 8.2 10^3/uL (4.4-10.8)
[2022-01-27] MEDS: FUROSEMIDE 40 MG/4 ML VIAL IV SCH ×2 (11:57→18:57)
[2022-01-27] MEDS: methylPREDNISolone SOD SUCC 40 MG/ML VL IV SCH ×2 (12:37→21:38)
[2022-01-27] MEDS: TAMSULOSIN HYDROCHLORIDE 0.4 MG CAP PO SCH (18:59)
[2022-01-27] MEDS: ATORVASTATIN 20 MG TAB PO SCH (21:36)
[2022-01-28] MEDS: IPRATROPIUM BROM 0.5 MG/2.5ML INH SOL NEB SCH ×6 (02:21→22:16)
[2022-01-28] MEDS: ALBUTEROL SULF 2.5 MG/0.5ML(0.5%) NEB SOLN NEB SCH ×6 (02:21→22:16)
[2022-01-28 05:00] VITALS: BP 167/69
[2022-01-28] MEDS: FUROSEMIDE 40 MG/4 ML VIAL IV SCH ×2 (05:27→17:34)
[2022-01-28 06:51] LABS: Calcium 9.1 mg/dL (8.5-10.1)
[2022-01-28 06:56] LABS: Albumin 3.4 g/dL (3.4-5.0); BUN/Creatinine Ratio 24.3; Bilirubin, Total 0.8 mg/dL (0.2-1.0); Total Protein 7.1 g/dL (6.4-8.2)
[2022-01-28 08:51] VITALS: BP 173/76
[2022-01-28] MEDS: ASPirin 81 mg TAB PO SCH (09:17)
[2022-01-28] MEDS: ENOXAPARIN SOD 40 MG/0.4 ML SYRINGE SC SCH (09:17)
[2022-01-28] MEDS: methylPREDNISolone SOD SUCC 40 MG/ML VL IV SCH ×2 (09:17→20:35)
[2022-01-28] MEDS: PANTOPRAZOLE 40 MG TAB PO SCH (09:18)
[2022-01-28] MEDS: amLODIPine BESYLATE 5 MG TAB PO SCH (09:18)
[2022-01-28] MEDS: LOSARTAN POTASSIUM 50 MG TAB PO SCH (09:18)
[2022-01-28] MEDS: POTASSIUM CHL 10 Meq TABLET PO SCH (09:18)
[2022-01-28] MEDS: METOPROLOL TARTRATE 50 MG TAB PO SCH ×2 (09:19→10:19)
[2022-01-28] MEDS: NICOTINE 21MG/24 HR TOPICAL PATCH TD SCH (09:20)
[2022-01-28] MEDS: DOXYCYCLINE 100MG/250ML 250 ML IV SCH ×2 (12:39→23:14)
[2022-01-28 12:58] VITALS: BP 166/73
[2022-01-28] MEDS: cloNIDine HCL 0.1 MG TAB PO PRN (16:14)
[2022-01-28 16:32] VITALS: BP 169/69
[2022-01-28] MEDS: TAMSULOSIN HYDROCHLORIDE 0.4 MG CAP PO SCH (17:34)
[2022-01-28] MEDS ORDERED: cloNIDine HCL 0.1 MG TAB PO SCH (18:00)
[2022-01-28] MEDS: ATORVASTATIN 20 MG TAB PO SCH (20:35)
[2022-01-28 22:00] VITALS: BP 131/61
[2022-01-29] VITALS (7 sets, daily range): BP systolic 118–150; BP diastolic 53–74
[2022-01-29] MEDS: cloNIDine HCL 0.1 MG TAB PO PRN (02:16)
[2022-01-29] MEDS: IPRATROPIUM BROM 0.5 MG/2.5ML INH SOL NEB SCH ×5 (02:21→21:36)
[2022-01-29] MEDS: ALBUTEROL SULF 2.5 MG/0.5ML(0.5%) NEB SOLN NEB SCH ×5 (02:21→21:36)
[2022-01-29] MEDS ORDERED: MORPHINE SULFATE INJ 2 MG/ml SYRG IV ONE (03:15)
[2022-01-29 03:47] LABS: Basophils # (auto) 0 10 ^3/uL (0-0.2); Basophils % (auto) 0.1 % (0.0-2.0); Eosinophils # (auto) 0 10 ^3/uL (0-0.8); Hematocrit 39.4 % (41.0-53.0); Lymphocytes # (auto) 0.7 10 ^3/uL (0.4-5.4); Lymphocytes % (auto) 6.5 % (10.0-50.0); Mean Corpuscular Hemoglobin 30.2 pg (28.0-32.0); Mean Corpuscular Volume 91.6 fL (80.0-100.0); Monocytes # (auto) 0.4 10 ^3/uL (0-1.3); Monocytes % (auto) 3.8 % (0.0-12.0); Neutrophils # (auto) 9.8 10 ^3/uL (1.6-8.6); Neutrophils % (auto) 89.6 % (37.0-80.0); Red Cell Distribution Width 14.2 % (11.8-14.3)
[2022-01-29 04:11] LABS: BUN/Creatinine Ratio 27.3; Calcium 9.6 mg/dL (8.5-10.1); Potassium 4.1 mmol/L (3.5-5.1)
[2022-01-29 04:32] LABS: INR 1.03 (0.9-1.15); Partial Thromboplastin Time 26.4 sec (24.6-33.4)
[2022-01-29] MEDS: FUROSEMIDE 40 MG/4 ML VIAL IV SCH ×2 (05:48→18:38)
[2022-01-29] MEDS ORDERED: ALBUTEROL SULF 2.5 MG/0.5ML(0.5%) NEB SOLN NEB ONE (09:45)
[2022-01-29] MEDS ORDERED: IPRATROPIUM BROM 0.5 MG/2.5ML INH SOL NEB ONE (09:45)
[2022-01-29] MEDS: amLODIPine BESYLATE 5 MG TAB PO SCH (10:00)
[2022-01-29] MEDS: ENOXAPARIN SOD 40 MG/0.4 ML SYRINGE SC SCH (10:00)
[2022-01-29] MEDS: METOPROLOL TARTRATE 50 MG TAB PO SCH ×2 (10:00→22:08)
[2022-01-29] MEDS: LOSARTAN POTASSIUM 50 MG TAB PO SCH (10:00)
[2022-01-29] MEDS: ASPirin 81 mg TAB PO SCH (10:00)
[2022-01-29] MEDS: methylPREDNISolone SOD SUCC 40 MG/ML VL IV SCH ×2 (10:00→22:07)
[2022-01-29] MEDS: PANTOPRAZOLE 40 MG TAB PO SCH (10:00)
[2022-01-29] MEDS: POTASSIUM CHL 10 Meq TABLET PO SCH (10:00)
[2022-01-29] MEDS ORDERED: ANGIOMAX 250 MG VIAL IV ONE (12:37)
[2022-01-29] MEDS ORDERED: MIDAZOLAM HCL 2MG/2ML 2ml VIAL (1mg/ml) ONE (12:38)
[2022-01-29] MEDS ORDERED: fentaNYL CITRATE 100 MCG/2 ML VL ONE (12:38)
[2022-01-29] MEDS ORDERED: VERAPAMIL 2.5MG/ML INJ 2ML VIAL IV ONE (12:38)
[2022-01-29] MEDS ORDERED: SODIUM CHL 0.9% 0 ML ONE (12:38)
[2022-01-29] MEDS ORDERED: HEPARIN SODIUM (PORCINE) 5000 UNITS/ML 1ML VIAL ONE (12:39)
[2022-01-29] MEDS ORDERED: IOHEXOL 350 MG/ML 100ML IJ ONE (12:39)
[2022-01-29] MEDS ORDERED: LIDOCAINE 2%HCL (LOCAL ANESTH.) INJ 10ml MDV ONE (12:39)
[2022-01-29] MEDS: DOXYCYCLINE 100MG/250ML 250 ML IV SCH ×2 (14:50→22:09)
[2022-01-29] MEDS: NICOTINE 21MG/24 HR TOPICAL PATCH TD SCH (14:52)
[2022-01-29] MEDS: TAMSULOSIN HYDROCHLORIDE 0.4 MG CAP PO SCH (18:01)
[2022-01-29] MEDS: ATORVASTATIN 20 MG TAB PO SCH (22:07)
[2022-01-30] MEDS: ALBUTEROL SULF 2.5 MG/0.5ML(0.5%) NEB SOLN NEB SCH ×6 (02:04→22:35)
[2022-01-30] MEDS: IPRATROPIUM BROM 0.5 MG/2.5ML INH SOL NEB SCH ×6 (02:04→22:35)
[2022-01-30 05:00] VITALS: BP 146/66
[2022-01-30] MEDS: FUROSEMIDE 40 MG/4 ML VIAL IV SCH ×2 (05:39→17:33)
[2022-01-30 09:18] VITALS: BP 128/74
[2022-01-30] MEDS: methylPREDNISolone SOD SUCC 40 MG/ML VL IV SCH ×2 (10:26→21:20)
[2022-01-30] MEDS: ASPirin 81 mg TAB PO SCH (10:26)
[2022-01-30] MEDS: LOSARTAN POTASSIUM 50 MG TAB PO SCH (10:27)
[2022-01-30] MEDS: POTASSIUM CHL 10 Meq TABLET PO SCH (10:28)
[2022-01-30] MEDS: ENOXAPARIN SOD 40 MG/0.4 ML SYRINGE SC SCH (10:29)
[2022-01-30] MEDS: amLODIPine BESYLATE 5 MG TAB PO SCH (10:29)
[2022-01-30] MEDS: PANTOPRAZOLE 40 MG TAB PO SCH (10:29)
[2022-01-30] MEDS: NICOTINE 21MG/24 HR TOPICAL PATCH TD SCH (10:30)
[2022-01-30] MEDS: METOPROLOL TARTRATE 50 MG TAB PO SCH ×2 (10:30→21:24)
[2022-01-30] MEDS: DOXYCYCLINE 100MG/250ML 250 ML IV SCH ×2 (11:53→23:04)
[2022-01-30 12:46] VITALS: BP 151/67
[2022-01-30 16:55] VITALS: BP 164/63
[2022-01-30] MEDS: TAMSULOSIN HYDROCHLORIDE 0.4 MG CAP PO SCH (17:32)
[2022-01-30 20:23] VITALS: BP 164/63
[2022-01-30] MEDS: ATORVASTATIN 20 MG TAB PO SCH (21:12)
[2022-01-30 22:00] VITALS: BP 148/65
[2022-01-31] MEDS: IPRATROPIUM BROM 0.5 MG/2.5ML INH SOL NEB SCH ×6 (02:08→22:38)
[2022-01-31] MEDS: ALBUTEROL SULF 2.5 MG/0.5ML(0.5%) NEB SOLN NEB SCH ×6 (02:08→22:38)
[2022-01-31 05:00] VITALS: BP 175/75
[2022-01-31] MEDS: cloNIDine HCL 0.1 MG TAB PO PRN (05:08)
[2022-01-31] MEDS: FUROSEMIDE 40 MG/4 ML VIAL IV SCH ×2 (05:08→18:12)
[2022-01-31 09:00] VITALS: BP 131/51
[2022-01-31] MEDS: NICOTINE 21MG/24 HR TOPICAL PATCH TD SCH (09:56)
[2022-01-31] MEDS: ASPirin 81 mg TAB PO SCH (09:57)
[2022-01-31] MEDS: methylPREDNISolone SOD SUCC 40 MG/ML VL IV SCH ×2 (09:57→21:25)
[2022-01-31] MEDS: LOSARTAN POTASSIUM 50 MG TAB PO SCH (09:58)
[2022-01-31] MEDS: METOPROLOL TARTRATE 50 MG TAB PO SCH ×2 (09:58→21:28)
[2022-01-31] MEDS: amLODIPine BESYLATE 5 MG TAB PO SCH (09:59)
[2022-01-31] MEDS: PANTOPRAZOLE 40 MG TAB PO SCH (10:02)
[2022-01-31] MEDS: POTASSIUM CHL 10 Meq TABLET PO SCH (10:02)
[2022-01-31] MEDS: ENOXAPARIN SOD 40 MG/0.4 ML SYRINGE SC SCH (10:02)
[2022-01-31] MEDS: DOXYCYCLINE 100MG/250ML 250 ML IV SCH ×2 (11:30→21:27)
[2022-01-31 12:47] VITALS: BP 148/73
[2022-01-31 16:43] VITALS: BP 156/74
[2022-01-31] MEDS: TAMSULOSIN HYDROCHLORIDE 0.4 MG CAP PO SCH (18:12)
[2022-01-31] MEDS: ATORVASTATIN 20 MG TAB PO SCH (21:25)
[2022-01-31 22:00] VITALS: BP 130/63
[2022-02-01] MEDS: IPRATROPIUM BROM 0.5 MG/2.5ML INH SOL NEB SCH ×7 (02:00→22:22)
[2022-02-01] MEDS: ALBUTEROL SULF 2.5 MG/0.5ML(0.5%) NEB SOLN NEB SCH ×7 (02:00→22:22)
[2022-02-01 05:00] VITALS: BP 160/72
[2022-02-01] MEDS: cloNIDine HCL 0.1 MG TAB PO PRN (05:18)
[2022-02-01] MEDS: FUROSEMIDE 40 MG/4 ML VIAL IV SCH ×2 (05:19→18:09)
[2022-02-01 09:00] VITALS: BP 119/55
[2022-02-01] MEDS ORDERED: LACTULOSE 20Gm/30ML SOLN PO ONE (09:30)
[2022-02-01] MEDS: methylPREDNISolone SOD SUCC 40 MG/ML VL IV SCH (10:03)
[2022-02-01] MEDS: LOSARTAN POTASSIUM 50 MG TAB PO SCH (10:06)
[2022-02-01] MEDS: NICOTINE 21MG/24 HR TOPICAL PATCH TD SCH (10:06)
[2022-02-01] MEDS: ASPirin 81 mg TAB PO SCH (10:06)
[2022-02-01] MEDS: PANTOPRAZOLE 40 MG TAB PO SCH (10:07)
[2022-02-01] MEDS: POTASSIUM CHL 10 Meq TABLET PO SCH (10:07)
[2022-02-01] MEDS: METOPROLOL TARTRATE 50 MG TAB PO SCH (10:07)
[2022-02-01] MEDS: DOXYCYCLINE 100MG/250ML 250 ML IV SCH ×2 (10:08→23:30)
[2022-02-01] MEDS: ENOXAPARIN SOD 40 MG/0.4 ML SYRINGE SC SCH (10:08)
[2022-02-01] MEDS: amLODIPine BESYLATE 5 MG TAB PO SCH (10:15)
[2022-02-01 13:00] VITALS: BP 147/69
[2022-02-01 17:00] VITALS: BP 121/58
[2022-02-01] MEDS: TAMSULOSIN HYDROCHLORIDE 0.4 MG CAP PO SCH (18:00)
[2022-02-01 20:00] VITALS: BP 121/58
[2022-02-01 22:00] VITALS: BP 142/66
[2022-02-02] MEDS: methylPREDNISolone SOD SUCC 40 MG/ML VL IV SCH ×3 (01:21→22:18)
[2022-02-02] MEDS: ATORVASTATIN 20 MG TAB PO SCH ×2 (01:21→22:18)
[2022-02-02] MEDS: METOPROLOL TARTRATE 50 MG TAB PO SCH ×3 (01:22→22:18)
[2022-02-02] MEDS: ALBUTEROL SULF 2.5 MG/0.5ML(0.5%) NEB SOLN NEB SCH ×6 (02:47→21:54)
[2022-02-02] MEDS: IPRATROPIUM BROM 0.5 MG/2.5ML INH SOL NEB SCH ×6 (02:47→21:54)
[2022-02-02 05:00] VITALS: BP 140/67
[2022-02-02] MEDS: FUROSEMIDE 40 MG/4 ML VIAL IV SCH ×2 (05:23→18:00)
[2022-02-02 08:00] VITALS: BP 121/58
[2022-02-02 09:00] VITALS: BP 165/83
[2022-02-02] MEDS: PANTOPRAZOLE 40 MG TAB PO SCH (10:29)
[2022-02-02] MEDS: ENOXAPARIN SOD 40 MG/0.4 ML SYRINGE SC SCH (10:29)
[2022-02-02] MEDS: ASPirin 81 mg TAB PO SCH (10:29)
[2022-02-02] MEDS: NICOTINE 21MG/24 HR TOPICAL PATCH TD SCH (10:30)
[2022-02-02] MEDS: DOXYCYCLINE 100 MG TAB/CAP PO SCH ×2 (10:31→22:18)
[2022-02-02] MEDS: LOSARTAN POTASSIUM 50 MG TAB PO SCH (10:31)
[2022-02-02] MEDS: POTASSIUM CHL 10 Meq TABLET PO SCH (10:31)
[2022-02-02] MEDS: amLODIPine BESYLATE 5 MG TAB PO SCH (10:32)
[2022-02-02] MEDS: TAMSULOSIN HYDROCHLORIDE 0.4 MG CAP PO SCH (18:00)
[2022-02-02 22:00] VITALS: BP 140/62
[2022-02-03] VITALS (7 sets, daily range): BP systolic 121–147; BP diastolic 58–78
[2022-02-03] MEDS: ALBUTEROL SULF 2.5 MG/0.5ML(0.5%) NEB SOLN NEB SCH ×5 (01:59→22:28)
[2022-02-03] MEDS: IPRATROPIUM BROM 0.5 MG/2.5ML INH SOL NEB SCH ×5 (01:59→22:28)
[2022-02-03] MEDS: FUROSEMIDE 40 MG/4 ML VIAL IV SCH ×2 (06:34→18:00)
[2022-02-03] MEDS: ENOXAPARIN SOD 40 MG/0.4 ML SYRINGE SC SCH (10:26)
[2022-02-03] MEDS: NICOTINE 21MG/24 HR TOPICAL PATCH TD SCH (10:26)
[2022-02-03] MEDS: methylPREDNISolone SOD SUCC 40 MG/ML VL IV SCH ×2 (10:27→23:07)
[2022-02-03] MEDS: DOXYCYCLINE 100 MG TAB/CAP PO SCH ×2 (10:29→23:06)
[2022-02-03] MEDS: ASPirin 81 mg TAB PO SCH (10:29)
[2022-02-03] MEDS: PANTOPRAZOLE 40 MG TAB PO SCH (10:30)
[2022-02-03] MEDS: METOPROLOL TARTRATE 50 MG TAB PO SCH ×2 (10:30→23:07)
[2022-02-03] MEDS: POTASSIUM CHL 10 Meq TABLET PO SCH (10:30)
[2022-02-03] MEDS: amLODIPine BESYLATE 5 MG TAB PO SCH (10:31)
[2022-02-03] MEDS: LOSARTAN POTASSIUM 50 MG TAB PO SCH (10:31)
[2022-02-03] MEDS: TAMSULOSIN HYDROCHLORIDE 0.4 MG CAP PO SCH (18:00)
[2022-02-03] MEDS: ATORVASTATIN 20 MG TAB PO SCH (23:06)
[2022-02-04] MEDS: ALBUTEROL SULF 2.5 MG/0.5ML(0.5%) NEB SOLN NEB SCH ×6 (02:00→23:07)
[2022-02-04] MEDS: IPRATROPIUM BROM 0.5 MG/2.5ML INH SOL NEB SCH ×6 (02:00→23:07)
[2022-02-04 05:01] VITALS: BP 136/76
[2022-02-04] MEDS: FUROSEMIDE 40 MG/4 ML VIAL IV SCH ×2 (05:55→18:11)
[2022-02-04 09:00] VITALS: BP 137/56
[2022-02-04] MEDS: DOXYCYCLINE 100 MG TAB/CAP PO SCH ×2 (10:33→22:18)
[2022-02-04] MEDS: methylPREDNISolone SOD SUCC 40 MG/ML VL IV SCH ×2 (10:34→22:17)
[2022-02-04] MEDS: POTASSIUM CHL 10 Meq TABLET PO SCH (10:34)
[2022-02-04] MEDS: ASPirin 81 mg TAB PO SCH (10:34)
[2022-02-04] MEDS: PANTOPRAZOLE 40 MG TAB PO SCH (10:36)
[2022-02-04] MEDS: METOPROLOL TARTRATE 50 MG TAB PO SCH ×2 (10:36→22:18)
[2022-02-04] MEDS: ENOXAPARIN SOD 40 MG/0.4 ML SYRINGE SC SCH (10:36)
[2022-02-04] MEDS: NICOTINE 21MG/24 HR TOPICAL PATCH TD SCH (10:37)
[2022-02-04] MEDS: amLODIPine BESYLATE 5 MG TAB PO SCH (10:37)
[2022-02-04] MEDS: LOSARTAN POTASSIUM 50 MG TAB PO SCH (10:38)
[2022-02-04 13:00] VITALS: BP 139/66
[2022-02-04 17:00] VITALS: BP 159/68
[2022-02-04] MEDS: TAMSULOSIN HYDROCHLORIDE 0.4 MG CAP PO SCH (18:10)
[2022-02-04 22:00] VITALS: BP 130/66
[2022-02-04] MEDS ORDERED: TEMAZEPAM 15 MG CAP PO SCH (22:00)
[2022-02-04] MEDS: ATORVASTATIN 20 MG TAB PO SCH (22:17)
[2022-02-05] MEDS: ALBUTEROL SULF 2.5 MG/0.5ML(0.5%) NEB SOLN NEB SCH ×4 (02:00→14:38)
[2022-02-05] MEDS: IPRATROPIUM BROM 0.5 MG/2.5ML INH SOL NEB SCH ×4 (02:00→14:39)
[2022-02-05 05:00] VITALS: BP 139/64
[2022-02-05] MEDS: FUROSEMIDE 40 MG/4 ML VIAL IV SCH (05:30)
[2022-02-05 09:00] VITALS: BP 136/67
[2022-02-05] MEDS: methylPREDNISolone SOD SUCC 40 MG/ML VL IV SCH (09:49)
[2022-02-05] MEDS: LOSARTAN POTASSIUM 50 MG TAB PO SCH (09:49)
[2022-02-05] MEDS: ASPirin 81 mg TAB PO SCH (09:51)
[2022-02-05] MEDS: POTASSIUM CHL 10 Meq TABLET PO SCH (09:51)
[2022-02-05] MEDS: PANTOPRAZOLE 40 MG TAB PO SCH (09:51)
[2022-02-05] MEDS: DOXYCYCLINE 100 MG TAB/CAP PO SCH (09:51)
[2022-02-05] MEDS: METOPROLOL TARTRATE 50 MG TAB PO SCH (09:52)
[2022-02-05] MEDS: ENOXAPARIN SOD 40 MG/0.4 ML SYRINGE SC SCH (09:52)
[2022-02-05] MEDS: amLODIPine BESYLATE 5 MG TAB PO SCH (09:52)
[2022-02-05] MEDS: NICOTINE 21MG/24 HR TOPICAL PATCH TD SCH (09:53)
[2022-02-05 13:00] VITALS: BP 154/79
[2022-02-05] MEDS ORDERED: ALBUTEROL MEDNEB 2.5 mg/3ml NEB ONE (13:55)
[2022-02-05 17:00] VITALS: BP 139/79
== END 2022-02-05 18:01 | disposition home or self-care (01) | DRG 286 ==
LOC: EDBD 19:03 → ER 19:05 → OVERFLOW 23:25 → EAST 01-25 17:10 → WEST WING 01-27 16:55 → TELE-WESTW 01-28 08:54
PROVIDERS: ADMIT Nurse Practitioner; ATTEND Internal Medicine Pulmonary Disease
PROC: 5A09357 Assistance with Respiratory Ventilation, Less than 24 Consecutive Hours, Continuous Positive Airway Pressure (ICD-10-PCS; 2022-01-27)
PROC: 4A023N7 Measurement of Cardiac Sampling and Pressure, Left Heart, Percutaneous Approach (ICD-10-PCS; principal; 2022-01-29)
PROC: B2111ZZ Fluoroscopy of Multiple Coronary Arteries using Low Osmolar Contrast (ICD-10-PCS; 2022-01-29)
PROC: B2151ZZ Fluoroscopy of Left Heart using Low Osmolar Contrast (ICD-10-PCS; 2022-01-29)
PROC: 4A023N7 Measurement of Cardiac Sampling and Pressure, Left Heart, Percutaneous Approach (ICD-10-PCS; 2022-01-29)
PROC: B211YZZ Fluoroscopy of Multiple Coronary Arteries using Other Contrast (ICD-10-PCS; 2022-01-29)
PROC: B215YZZ Fluoroscopy of Left Heart using Other Contrast (ICD-10-PCS; 2022-01-29)
DX: I13.0 Hypertensive heart and chronic kidney disease with heart failure and stage 1 through stage 4 chronic kidney disease, or unspecified chronic kidney disease (principal); I50.41 Acute combined systolic (congestive) and diastolic (congestive) heart failure; J96.21 Acute and chronic respiratory failure with hypoxia; J69.0 Pneumonitis due to inhalation of food and vomit; J44.0 Chronic obstructive pulmonary disease with (acute) lower respiratory infection; J44.1 Chronic obstructive pulmonary disease with (acute) exacerbation; N39.0 Urinary tract infection, site not specified; J98.11 Atelectasis; K80.20 Calculus of gallbladder without cholecystitis without obstruction; E03.9 Hypothyroidism, unspecified; E11.22 Type 2 diabetes mellitus with diabetic chronic kidney disease; E66.01 Morbid (severe) obesity due to excess calories; F41.9 Anxiety disorder, unspecified; I48.91 Unspecified atrial fibrillation; K76.0 Fatty (change of) liver, not elsewhere classified; N18.9 Chronic kidney disease, unspecified; N40.0 Benign prostatic hyperplasia without lower urinary tract symptoms; K21.9 Gastro-esophageal reflux disease without esophagitis; R79.89 Other specified abnormal findings of blood chemistry; Z20.822 Contact with and (suspected) exposure to COVID-19; Z68.32 Body mass index [BMI] 32.0-32.9, adult; Z95.0 Presence of cardiac pacemaker; Z86.73 Personal history of transient ischemic attack (TIA), and cerebral infarction without residual deficits
CPT/HCPCS: 36415; 36600; 71045; 71275; 80048; 80053; 81001; 82805; 83880; 84484; 85025; 85379; 85610; 85730; 86850; 86900; 86901; 87081; 87426; 93005; 93306; 93458; 94640; 94660; 96374; 97163; 99152; G0378; J2001; J2250; J2405; J3490

== ENCOUNTER 2022-03-16 16:58 | Inpatient (IN) | payer MEDICARE, MEDICAID ==
[~2022-03-16] VITALS: Ht 185.4 cm; Wt 112.4 kg
[~2022-03-16 16:58] MED LIST changes: +DIVA1TAB37 PO; +UMEC1AER INH
[2022-03-16 18:13] LABS: Basophils # (auto) 0.1 10 ^3/uL (0-0.2); Basophils % (auto) 0.6 % (0.0-2.0); Eosinophils # (auto) 1.3 10 ^3/uL (0-0.8); Eosinophils % (auto) 14.5 % (0.0-7.0); Hematocrit 37.2 % (41.0-53.0); Hemoglobin 12.4 g/dL (13.5-17.5); Lymphocytes # (auto) 1.9 10 ^3/uL (0.4-5.4); Lymphocytes % (auto) 21.4 % (10.0-50.0); Mean Corpuscular Hemoglobin 31.6 pg (28.0-32.0); Mean Corpuscular Hgb Conc. 33.4 g/dL (32.0-36.0); Mean Corpuscular Volume 94.5 fL (80.0-100.0); Monocytes # (auto) 0.7 10 ^3/uL (0-1.3); Monocytes % (auto) 8.2 % (0.0-12.0); Neutrophils # (auto) 4.8 10 ^3/uL (1.6-8.6); Neutrophils % (auto) 55.3 % (37.0-80.0); Nucleated Red Blood Cells % 0.1 %; Red Blood Cells 3.93 10^6/uL (4.5-5.90); Red Cell Distribution Width 14.4 % (11.8-14.3); White Blood Cell 8.7 10^3/uL (4.4-10.8)
[2022-03-16 18:31] LABS: Albumin 3.6 g/dL (3.4-5.0); BUN/Creatinine Ratio 16.5; Potassium 3.7 mmol/L (3.5-5.1)
[2022-03-16 18:34] LABS: Bilirubin, Total 0.7 mg/dL (0.2-1.0); Total Protein 7.2 g/dL (6.4-8.2)
[2022-03-16] MEDS ORDERED: IPRATROPIUM BROM 0.5 MG/2.5ML INH SOL NEB ONE (20:00)
[2022-03-16] MEDS ORDERED: ALBUTEROL SULF 2.5 MG/0.5ML(0.5%) NEB SOLN NEB ONE ×4 (20:00→23:15)
[2022-03-16] MEDS ORDERED: ALBUTEROL MEDNEB 2.5 mg/3ml NEB ONE ×5 (20:03→22:55)
[2022-03-16] MEDS ORDERED: DexAMETHasone SOD PHOS 10MG/1ML VIAL INJ IV ONE (21:15)
[2022-03-16] MEDS ORDERED: MAGNESIUM SULFATE 1GM/100ML 200 ML IV ONE (22:01)
[2022-03-16] MEDS ORDERED: LORazepam 2MG/ML-1ML VIAL ONE (22:03)
[2022-03-16] MEDS ORDERED: LORazepam 2MG/ML-1ML VIAL IV ONE (22:15)
[2022-03-16] MEDS ORDERED: SUCCINYLCHOLINE CHLORIDE 20 MG/ML 10ML VIAL IV ONE (22:20)
[2022-03-16] MEDS ORDERED: ROCURONIUM 10MG/ML 10ML VIAL IV ONE ×2 (22:21→23:09)
[2022-03-16] MEDS ORDERED: PROPOFOL 100 ML IV ONE (22:21)
[2022-03-16] MEDS ORDERED: ETOMIDATE (2MG/ML) 20ML VIAL IV ONE (22:23)
[2022-03-16 22:48] VITALS: BP 84/45
[2022-03-16 23:00] VITALS: BP 127/57
[2022-03-16] MEDS ORDERED: MIDAZOLAM DRIP 50 mg/50mL 50 ML IV ONE (23:11)
[2022-03-17] VITALS (13 sets, daily range): BP systolic 112–148; BP diastolic 43–69
[2022-03-17] MEDS ORDERED: ROCURONIUM 10MG/ML 10ML VIAL IV ONE ×2
[2022-03-17] MEDS ORDERED: SUCCINYLCHOLINE CHLORIDE 20 MG/ML 10ML VIAL IV ONE
[2022-03-17] MEDS ORDERED: ETOMIDATE (2MG/ML) 20ML VIAL IV ONE
[2022-03-17] MEDS: MAGNESIUM SULFATE 1GM/100ML 100 ML IV SCH ×2 (01:39→03:58)
[2022-03-17] MEDS: PROPOFOL 100 ML IV SCH (02:03)
[2022-03-17] MEDS: MIDAZOLAM DRIP 50 mg/50mL 50 ML IV SCH (02:08)
[2022-03-17] MEDS ORDERED: NITROGLYCERIN 0.4 MG SL TAB SL PRN (02:15)
[2022-03-17] MEDS ORDERED: MORPHINE SULFATE INJ 2 MG/ml SYRG IV PRN (02:15)
[2022-03-17] MEDS ORDERED: D5W/SOD CHLO 0.9% 1,000 ML IV SCH (02:15)
[2022-03-17 03:19] LABS: Urine Bacteria FEW /hpf (None Seen); Urine Blood Negative /uL (Negative); Urine Hyaline Cast FEW /lpf (0 - 2); Urine Specific Gravity 1.018 (1.001-1.035); Urine WBC 42 /hpf (0 - 3)
[2022-03-17] MEDS ORDERED: IPRATROPIUM BROM 0.5 MG/2.5ML INH SOL NEB SCH (06:00)
[2022-03-17] MEDS ORDERED: ALBUTEROL SULF 2.5 MG/0.5ML(0.5%) NEB SOLN NEB SCH (06:00)
[2022-03-17] MEDS ORDERED: ALBUTEROL MEDNEB 2.5 mg/3ml NEB ONE ×5 (07:23→22:02)
[2022-03-17] MEDS ORDERED: cefTRIAXone 1GM/50ML D5W 50 ML IV SCH (09:00)
[2022-03-17] MEDS: NOREPINEPHRINE 8 MG/250ML KIT 250 ML IV SCH (09:29)
[2022-03-17] MEDS: methylPREDNISolone SOD SUCC 125 MG/2 ML VL IV SCH ×2 (09:36→22:28)
[2022-03-17] MEDS: ENOXAPARIN SOD 40 MG/0.4 ML SYRINGE SC SCH (09:37)
[2022-03-17] MEDS ORDERED: PANTOPRAZOLE 40 MG/10 ML VIAL INJ IV ONE (11:15)
[2022-03-17] MEDS ORDERED: CEFEPIME 2 GM in SODIUM CHL 0.9% 50 ML IV ONE (11:15)
[2022-03-17 11:32] LABS: Hemoglobin 11.4 g/dL (13.5-17.5); Mean Corpuscular Hemoglobin 31.1 pg (28.0-32.0); Mean Corpuscular Hgb Conc. 32.7 g/dL (32.0-36.0); Mean Corpuscular Volume 95.2 fL (80.0-100.0); Red Blood Cells 3.67 10^6/uL (4.5-5.90); Red Cell Distribution Width 14.6 % (11.8-14.3); White Blood Cell 11.1 10^3/uL (4.4-10.8)
[2022-03-17 11:46] LABS: Calcium 8.7 mg/dL (8.5-10.1); Potassium 3.2 mmol/L (3.5-5.1)
[2022-03-17 11:56] LABS: INR 1.05 (0.9-1.15); Partial Thromboplastin Time 28.2 sec (24.6-33.4)
[2022-03-17 11:59] LABS: Basophils % (manual) 0 (0.0-2.0); Blast Cells 0; Eosinophils % (manual) 0 (0-7); Metamyelocytes % 0; Myelocytes % 0; Promyelocytes % 0; Reactive Lymphocytes 0
[2022-03-17] MEDS ORDERED: POTASSIUM EFFERVESENT TAB 25 MEQ PO ONE (12:30)
[2022-03-17] MEDS ORDERED: LIDOCAINE 1% (LOCAL ANESTH.) PF 5ml SDV ID ONE (13:45)
[2022-03-17] MEDS: IPRATROPIUM BROM 0.5 MG/2.5ML INH SOL NEB SCH ×3 (13:47→22:33)
[2022-03-17] MEDS: ALBUTEROL SULF 2.5 MG/0.5ML(0.5%) NEB SOLN NEB SCH ×3 (13:47→22:33)
[2022-03-17] MEDS: fentaNYL Drip 2500mCg/250mlNS 250 ML IV SCH (14:10)
[2022-03-17 15:09] LABS: Band Neutrophils % (manual) 10; Lymphocytes % (manual) 4 (10.0-50.0); Monocytes % (manual) 2 (0-12)
[2022-03-17] MEDS: SODIUM CHLOR 0.9% PF (SALINE LOCK) 10ML VIAL/SYR IV SCH (22:27)
[2022-03-17] MEDS: CEFEPIME 2 GM in SODIUM CHL 0.9% 50 ML IV SCH (22:27)
[2022-03-18] VITALS (60 sets, daily range): BP systolic 95–133; BP diastolic 44–67
[2022-03-18] MEDS ORDERED: ALBUTEROL MEDNEB 2.5 mg/3ml NEB ONE ×4 (01:43→13:32)
[2022-03-18] MEDS: PROPOFOL 100 ML IV SCH (01:45)
[2022-03-18] MEDS: ALBUTEROL SULF 2.5 MG/0.5ML(0.5%) NEB SOLN NEB SCH ×4 (01:45→14:03)
[2022-03-18] MEDS: IPRATROPIUM BROM 0.5 MG/2.5ML INH SOL NEB SCH ×6 (01:45→22:24)
[2022-03-18] MEDS: MIDAZOLAM DRIP 50 mg/50mL 50 ML IV SCH ×5 (01:45→21:23)
[2022-03-18] MEDS: NOREPINEPHRINE 8 MG/250ML KIT 250 ML IV SCH (04:15)
[2022-03-18 05:33] LABS: Basophils # (auto) 0 10 ^3/uL (0-0.2); Eosinophils # (auto) 0 10 ^3/uL (0-0.8); Hematocrit 31.9 % (41.0-53.0); Hemoglobin 10.6 g/dL (13.5-17.5); Lymphocytes # (auto) 0.4 10 ^3/uL (0.4-5.4); Lymphocytes % (auto) 2.1 % (10.0-50.0); Mean Corpuscular Hemoglobin 31.2 pg (28.0-32.0); Mean Corpuscular Hgb Conc. 33.1 g/dL (32.0-36.0); Mean Corpuscular Volume 94.5 fL (80.0-100.0); Monocytes # (auto) 0.8 10 ^3/uL (0-1.3); Monocytes % (auto) 3.8 % (0.0-12.0); Neutrophils # (auto) 19.5 10 ^3/uL (1.6-8.6); Neutrophils % (auto) 94.1 % (37.0-80.0); Red Blood Cells 3.38 10^6/uL (4.5-5.90); Red Cell Distribution Width 14.6 % (11.8-14.3); White Blood Cell 20.7 10^3/uL (4.4-10.8)
[2022-03-18 06:23] LABS: Potassium 3.2 mmol/L (3.5-5.1)
[2022-03-18 06:33] LABS: Albumin 3.1 g/dL (3.4-5.0); BUN/Creatinine Ratio 22.1; Bilirubin, Total 0.5 mg/dL (0.2-1.0); Calcium 8.5 mg/dL (8.5-10.1); Total Protein 6.2 g/dL (6.4-8.2)
[2022-03-18] MEDS: fentaNYL Drip 2500mCg/250mlNS 250 ML IV SCH (07:31)
[2022-03-18] MEDS: ENOXAPARIN SOD 40 MG/0.4 ML SYRINGE SC SCH (10:26)
[2022-03-18] MEDS: methylPREDNISolone SOD SUCC 125 MG/2 ML VL IV SCH (10:27)
[2022-03-18] MEDS: SODIUM CHLOR 0.9% PF (SALINE LOCK) 10ML VIAL/SYR IV SCH ×2 (10:27→22:22)
[2022-03-18] MEDS: PANTOPRAZOLE 40 MG/10 ML VIAL INJ IV SCH (10:27)
[2022-03-18] MEDS: CEFEPIME 2 GM in SODIUM CHL 0.9% 50 ML IV SCH ×2 (11:45→22:23)
[2022-03-18] MEDS ORDERED: DEXTROSE (50%) 50ML SYRG IV PRN (12:00)
[2022-03-18] MEDS ORDERED: POTASSIUM EFFERVESENT TAB 25 MEQ PO ONE (12:00)
[2022-03-18] MEDS ORDERED: Jevity 1.2 Cal/Fiber 1 Liter GT SCH (12:00)
[2022-03-18] MEDS: ACCU-CHEK COMFORT CURVE STRIP VI SCH ×2 (12:34→18:25)
[2022-03-18] MEDS: InsuLIN REG 1unit/0.01ml Soln (100units/ml) SC SCH ×2 (12:36→18:27)
[2022-03-18] MEDS: ALBUTEROL MEDNEB 2.5 mg/3ml NEB NEB SCH ×2 (18:22→22:24)
[2022-03-18] MEDS: methylPREDNISolone SOD SUCC 40 MG/ML VL IV SCH (22:21)
[2022-03-19] VITALS (79 sets, daily range): BP systolic 100–150; BP diastolic 52–69
[2022-03-19] MEDS: ACCU-CHEK COMFORT CURVE STRIP VI SCH ×4 (00:18→18:11)
[2022-03-19] MEDS: InsuLIN REG 1unit/0.01ml Soln (100units/ml) SC SCH ×4 (00:19→18:14)
[2022-03-19] MEDS: MIDAZOLAM DRIP 50 mg/50mL 50 ML IV SCH ×5 (01:08→21:49)
[2022-03-19] MEDS: PROPOFOL 100 ML IV SCH (01:45)
[2022-03-19] MEDS: IPRATROPIUM BROM 0.5 MG/2.5ML INH SOL NEB SCH ×5 (02:24→19:59)
[2022-03-19] MEDS: ALBUTEROL MEDNEB 2.5 mg/3ml NEB NEB SCH ×5 (02:25→19:58)
[2022-03-19] MEDS: NOREPINEPHRINE 8 MG/250ML KIT 250 ML IV SCH (04:15)
[2022-03-19 05:51] LABS: Basophils # (auto) 0 10 ^3/uL (0-0.2); Basophils % (auto) 0.1 % (0.0-2.0); Eosinophils # (auto) 0 10 ^3/uL (0-0.8); Hematocrit 33.4 % (41.0-53.0); Lymphocytes # (auto) 0.4 10 ^3/uL (0.4-5.4); Lymphocytes % (auto) 2.3 % (10.0-50.0); Mean Corpuscular Hemoglobin 30.8 pg (28.0-32.0); Mean Corpuscular Hgb Conc. 32.9 g/dL (32.0-36.0); Mean Corpuscular Volume 93.7 fL (80.0-100.0); Monocytes # (auto) 0.6 10 ^3/uL (0-1.3); Monocytes % (auto) 3.1 % (0.0-12.0); Neutrophils # (auto) 17.2 10 ^3/uL (1.6-8.6); Neutrophils % (auto) 94.5 % (37.0-80.0); Nucleated Red Blood Cells % 0.1 %; Red Blood Cells 3.56 10^6/uL (4.5-5.90); Red Cell Distribution Width 14.9 % (11.8-14.3); White Blood Cell 18.2 10^3/uL (4.4-10.8)
[2022-03-19 06:10] LABS: BUN/Creatinine Ratio 27.6; Calcium 9.1 mg/dL (8.5-10.1); Potassium 4.2 mmol/L (3.5-5.1)
[2022-03-19] MEDS: PANTOPRAZOLE 40 MG/10 ML VIAL INJ IV SCH (09:08)
[2022-03-19] MEDS: methylPREDNISolone SOD SUCC 40 MG/ML VL IV SCH ×2 (09:08→21:46)
[2022-03-19] MEDS: CEFEPIME 2 GM in SODIUM CHL 0.9% 50 ML IV SCH ×2 (09:08→21:53)
[2022-03-19] MEDS: SODIUM CHLOR 0.9% PF (SALINE LOCK) 10ML VIAL/SYR IV SCH ×2 (09:09→21:47)
[2022-03-19] MEDS: ENOXAPARIN SOD 40 MG/0.4 ML SYRINGE SC SCH (09:09)
[2022-03-19] MEDS: fentaNYL Drip 2500mCg/250mlNS 250 ML IV SCH (11:15)
[2022-03-19] MEDS: SODIUM CHLORIDE 0.9% 1,000 ML IV SCH (11:30)
[2022-03-20] VITALS (78 sets, daily range): BP systolic 129–177; BP diastolic 52–76
[2022-03-20] MEDS: ACCU-CHEK COMFORT CURVE STRIP VI SCH ×5 (01:12→23:00)
[2022-03-20] MEDS: InsuLIN REG 1unit/0.01ml Soln (100units/ml) SC SCH ×5 (01:13→23:00)
[2022-03-20] MEDS: PROPOFOL 100 ML IV SCH ×2 (01:45→23:43)
[2022-03-20] MEDS: ALBUTEROL MEDNEB 2.5 mg/3ml NEB NEB SCH ×7 (02:41→22:32)
[2022-03-20] MEDS: IPRATROPIUM BROM 0.5 MG/2.5ML INH SOL NEB SCH ×7 (02:42→22:32)
[2022-03-20 03:59] LABS: Basophils # (auto) 0 10 ^3/uL (0-0.2); Basophils % (auto) 0.1 % (0.0-2.0); Eosinophils # (auto) 0 10 ^3/uL (0-0.8); Hematocrit 32.3 % (41.0-53.0); Hemoglobin 10.7 g/dL (13.5-17.5); Lymphocytes # (auto) 0.5 10 ^3/uL (0.4-5.4); Lymphocytes % (auto) 3.1 % (10.0-50.0); Mean Corpuscular Hemoglobin 31.3 pg (28.0-32.0); Mean Corpuscular Hgb Conc. 33.2 g/dL (32.0-36.0); Mean Corpuscular Volume 94.2 fL (80.0-100.0); Monocytes # (auto) 0.6 10 ^3/uL (0-1.3); Monocytes % (auto) 3.7 % (0.0-12.0); Neutrophils # (auto) 15.3 10 ^3/uL (1.6-8.6); Neutrophils % (auto) 93.1 % (37.0-80.0); Red Blood Cells 3.43 10^6/uL (4.5-5.90); White Blood Cell 16.5 10^3/uL (4.4-10.8)
[2022-03-20 04:09] LABS: BUN/Creatinine Ratio 39.2; Calcium 8.7 mg/dL (8.5-10.1); Potassium 4.7 mmol/L (3.5-5.1)
[2022-03-20] MEDS: NOREPINEPHRINE 8 MG/250ML KIT 250 ML IV SCH ×2 (04:15→23:44)
[2022-03-20] MEDS: SODIUM CHLORIDE 0.9% 1,000 ML IV SCH ×2 (05:25→21:24)
[2022-03-20] MEDS: SODIUM CHLOR 0.9% PF (SALINE LOCK) 10ML VIAL/SYR IV SCH ×2 (10:00→21:25)
[2022-03-20] MEDS: fentaNYL Drip 2500mCg/250mlNS 250 ML IV SCH (11:15)
[2022-03-20] MEDS: methylPREDNISolone SOD SUCC 40 MG/ML VL IV SCH ×2 (11:25→21:24)
[2022-03-20] MEDS: PANTOPRAZOLE 40 MG/10 ML VIAL INJ IV SCH (11:25)
[2022-03-20] MEDS: ENOXAPARIN SOD 40 MG/0.4 ML SYRINGE SC SCH (11:25)
[2022-03-20] MEDS: CEFEPIME 2 GM in SODIUM CHL 0.9% 50 ML IV SCH ×2 (11:26→21:23)
[2022-03-20] MEDS ORDERED: Glucerna 1.2 Cal 1Liter BOTTLE GT SCH (15:30)
[2022-03-20] MEDS: ONDANSETRON HCL 4 MG/2 ML VIAL IV PRN (21:36)
[2022-03-20] MEDS: MIDAZOLAM DRIP 50 mg/50mL 50 ML IV SCH (23:43)
[2022-03-21] VITALS (69 sets, daily range): BP systolic 134–196; BP diastolic 56–115
[2022-03-21] MEDS: IPRATROPIUM BROM 0.5 MG/2.5ML INH SOL NEB SCH ×7 (03:00→23:07)
[2022-03-21] MEDS: ALBUTEROL MEDNEB 2.5 mg/3ml NEB NEB SCH ×7 (03:01→23:07)
[2022-03-21] MEDS: ONDANSETRON HCL 4 MG/2 ML VIAL IV PRN (04:37)
[2022-03-21] MEDS: InsuLIN REG 1unit/0.01ml Soln (100units/ml) SC SCH ×4 (05:04→23:38)
[2022-03-21] MEDS: ACCU-CHEK COMFORT CURVE STRIP VI SCH ×4 (05:04→23:39)
[2022-03-21 05:08] LABS: Basophils # (auto) 0 10 ^3/uL (0-0.2); Basophils % (auto) 0.1 % (0.0-2.0); Eosinophils # (auto) 0 10 ^3/uL (0-0.8); Hematocrit 34.4 % (41.0-53.0); Hemoglobin 11.4 g/dL (13.5-17.5); Lymphocytes # (auto) 0.5 10 ^3/uL (0.4-5.4); Lymphocytes % (auto) 3.5 % (10.0-50.0); Mean Corpuscular Hemoglobin 31.3 pg (28.0-32.0); Mean Corpuscular Hgb Conc. 33.2 g/dL (32.0-36.0); Mean Corpuscular Volume 94.3 fL (80.0-100.0); Monocytes # (auto) 0.6 10 ^3/uL (0-1.3); Monocytes % (auto) 3.9 % (0.0-12.0); Neutrophils # (auto) 13.3 10 ^3/uL (1.6-8.6); Neutrophils % (auto) 92.5 % (37.0-80.0); Nucleated Red Blood Cells % 0.2 %; Red Blood Cells 3.65 10^6/uL (4.5-5.90); Red Cell Distribution Width 14.9 % (11.8-14.3); White Blood Cell 14.4 10^3/uL (4.4-10.8)
[2022-03-21] MEDS ORDERED: hydrALAZINE HCL 20 MG/ML VL ONE (05:26)
[2022-03-21 05:27] LABS: BUN/Creatinine Ratio 47.1; Calcium 8.5 mg/dL (8.5-10.1)
[2022-03-21] MEDS ORDERED: hydrALAZINE HCL 20 MG/ML VL IV PRN ×2 (05:30→05:45)
[2022-03-21 05:43] LABS: Potassium 5.6 mmol/L (3.5-5.1)
[2022-03-21] MEDS ORDERED: FUROSEMIDE 40 MG/4 ML VIAL ONE (06:03)
[2022-03-21] MEDS: fentaNYL Drip 2500mCg/250mlNS 250 ML IV SCH ×2 (06:09→23:55)
[2022-03-21] MEDS: methylPREDNISolone SOD SUCC 40 MG/ML VL IV SCH ×2 (09:26→22:24)
[2022-03-21] MEDS: ENOXAPARIN SOD 40 MG/0.4 ML SYRINGE SC SCH (09:26)
[2022-03-21] MEDS: PANTOPRAZOLE 40 MG/10 ML VIAL INJ IV SCH (09:26)
[2022-03-21] MEDS: SODIUM CHLOR 0.9% PF (SALINE LOCK) 10ML VIAL/SYR IV SCH ×2 (09:34→22:25)
[2022-03-21] MEDS ORDERED: CARVEDILOL 12.5 MG TAB PO SCH (10:00)
[2022-03-21] MEDS: CEFEPIME 2 GM in SODIUM CHL 0.9% 50 ML IV SCH ×2 (12:51→22:24)
[2022-03-21 14:40] LABS: Calcium 8.7 mg/dL (8.5-10.1); Potassium 5.5 mmol/L (3.5-5.1)
[2022-03-21 14:42] LABS: BUN/Creatinine Ratio 47.3
[2022-03-21] MEDS ORDERED: SODIUM ZIRCONIUM CYCL 10 GM PAK PO ONE (15:00)
[2022-03-21] MEDS: SODIUM CHLORIDE 0.9% 1,000 ML IV SCH (15:22)
[2022-03-21] MEDS: METOPROLOL TARTRATE 25 MG TAB PO SCH (22:24)
[2022-03-22] VITALS (106 sets, daily range): BP systolic 139–216; BP diastolic 54–100
[2022-03-22] MEDS: MIDAZOLAM DRIP 50 mg/50mL 50 ML IV SCH ×3 (01:45→20:42)
[2022-03-22] MEDS: PROPOFOL 100 ML IV SCH ×2 (01:45→23:58)
[2022-03-22] MEDS: NOREPINEPHRINE 8 MG/250ML KIT 250 ML IV SCH ×2 (02:38→23:59)
[2022-03-22] MEDS: IPRATROPIUM BROM 0.5 MG/2.5ML INH SOL NEB SCH ×6 (03:12→22:32)
[2022-03-22] MEDS: ALBUTEROL MEDNEB 2.5 mg/3ml NEB NEB SCH ×6 (03:12→22:32)
[2022-03-22 05:38] LABS: Basophils # (auto) 0 10 ^3/uL (0-0.2); Basophils % (auto) 0.1 % (0.0-2.0); Eosinophils # (auto) 0 10 ^3/uL (0-0.8); Hematocrit 37.2 % (41.0-53.0); Hemoglobin 11.9 g/dL (13.5-17.5); Lymphocytes # (auto) 0.6 10 ^3/uL (0.4-5.4); Lymphocytes % (auto) 5.5 % (10.0-50.0); Mean Corpuscular Hemoglobin 30.7 pg (28.0-32.0); Mean Corpuscular Volume 95.7 fL (80.0-100.0); Monocytes # (auto) 0.5 10 ^3/uL (0-1.3); Monocytes % (auto) 4.6 % (0.0-12.0); Neutrophils # (auto) 9.3 10 ^3/uL (1.6-8.6); Neutrophils % (auto) 89.8 % (37.0-80.0); Nucleated Red Blood Cells % 0.2 %; Red Blood Cells 3.88 10^6/uL (4.5-5.90); Red Cell Distribution Width 15.1 % (11.8-14.3); White Blood Cell 10.4 10^3/uL (4.4-10.8)
[2022-03-22] MEDS: ACCU-CHEK COMFORT CURVE STRIP VI SCH ×4 (05:55→23:57)
[2022-03-22] MEDS: InsuLIN REG 1unit/0.01ml Soln (100units/ml) SC SCH ×4 (05:55→23:57)
[2022-03-22 05:56] LABS: Potassium 5.4 mmol/L (3.5-5.1)
[2022-03-22 06:04] LABS: Albumin 2.9 g/dL (3.4-5.0); BUN/Creatinine Ratio 58.2; Bilirubin, Total 0.7 mg/dL (0.2-1.0); Calcium 8.5 mg/dL (8.5-10.1); Total Protein 6.5 g/dL (6.4-8.2)
[2022-03-22] MEDS ORDERED: FUROSEMIDE 40 MG/4 ML VIAL IV SCH (10:00)
[2022-03-22] MEDS ORDERED: ALBUTEROL SULF 2.5 MG/0.5ML(0.5%) NEB SOLN NEB ONE (10:15)
[2022-03-22] MEDS: PANTOPRAZOLE 40 MG/10 ML VIAL INJ IV SCH (10:18)
[2022-03-22] MEDS: SODIUM CHLOR 0.9% PF (SALINE LOCK) 10ML VIAL/SYR IV SCH ×2 (10:19→21:45)
[2022-03-22] MEDS: methylPREDNISolone SOD SUCC 40 MG/ML VL IV SCH ×2 (10:19→21:45)
[2022-03-22] MEDS: METOPROLOL TARTRATE 25 MG TAB PO SCH ×2 (10:20→21:47)
[2022-03-22] MEDS: amLODIPine BESYLATE 5 MG TAB PO SCH (10:20)
[2022-03-22] MEDS: ENOXAPARIN SOD 40 MG/0.4 ML SYRINGE SC SCH (10:20)
[2022-03-22] MEDS: CEFEPIME 2 GM in SODIUM CHL 0.9% 50 ML IV SCH ×2 (10:21→21:45)
[2022-03-22] MEDS ORDERED: CALCIUM GLUC 1,000mg/50ml-NS 50 ML IV ONE (11:30)
[2022-03-22] MEDS ORDERED: InsuLIN REG 1unit/0.01ml Soln (100units/ml) IV ONE (11:30)
[2022-03-22] MEDS ORDERED: DEXTROSE (50%) 50ML SYRG IV ONE (11:30)
[2022-03-22] MEDS ORDERED: hydrALAZINE HCL 25 MG TAB PO SCH (11:30)
[2022-03-22 12:29] LABS: Cholesterol 207 mg/dL (< 200); HDL Cholesterol 42 mg/dL (40-59); LDL Cholesterol 138 mg/dL (< 100); Triglycerides 248 mg/dL (< 150)
[2022-03-22 12:55] LABS: Urine Bacteria FEW /hpf (None Seen); Urine Blood 2+ /uL (Negative); Urine WBC 28 /hpf (0 - 3)
[2022-03-22] MEDS: SODIUM ZIRCONIUM CYCL 10 GM PAK PO SCH ×2 (13:39→21:46)
[2022-03-22] MEDS: Nepro With Carb Steady 1 Liter Bottle GT SCH (13:40)
[2022-03-22] MEDS ORDERED: LACTULOSE 20Gm/30ML SOLN PO ONE (14:00)
[2022-03-22] MEDS: SODIUM CHLORIDE 0.9% 1,000 ML IV SCH ×2 (15:54→21:47)
[2022-03-22] MEDS: LABETALOL HCL 5 MG/ML 4ML SYRINGE IV PRN (16:10)
[2022-03-22] MEDS: fentaNYL Drip 2500mCg/250mlNS 250 ML IV SCH (18:42)
[2022-03-22] MEDS: LABETALOL HCL 200 MG TAB PO SCH (21:47)
[2022-03-23] VITALS (91 sets, daily range): BP systolic 99–187; BP diastolic 48–92
[2022-03-23] MEDS: LABETALOL HCL 5 MG/ML 4ML SYRINGE IV PRN ×4 (01:37→08:18)
[2022-03-23] MEDS: IPRATROPIUM BROM 0.5 MG/2.5ML INH SOL NEB SCH ×6 (02:39→22:45)
[2022-03-23] MEDS: ALBUTEROL MEDNEB 2.5 mg/3ml NEB NEB SCH ×6 (02:39→22:45)
[2022-03-23] MEDS: ACCU-CHEK COMFORT CURVE STRIP VI SCH ×3 (05:30→17:48)
[2022-03-23] MEDS: InsuLIN REG 1unit/0.01ml Soln (100units/ml) SC SCH ×3 (05:30→17:53)
[2022-03-23 06:04] LABS: Hematocrit 39.8 % (41.0-53.0); Hemoglobin 12.7 g/dL (13.5-17.5); Mean Corpuscular Hemoglobin 30.7 pg (28.0-32.0); Red Blood Cells 4.14 10^6/uL (4.5-5.90); Red Cell Distribution Width 15.1 % (11.8-14.3); White Blood Cell 11.9 10^3/uL (4.4-10.8)
[2022-03-23] MEDS: SODIUM ZIRCONIUM CYCL 10 GM PAK PO SCH ×3 (06:09→22:20)
[2022-03-23 06:36] LABS: Basophils % (manual) 0 (0.0-2.0); Blast Cells 0; Eosinophils % (manual) 0 (0-7); Myelocytes % 0; Promyelocytes % 0; Reactive Lymphocytes 0
[2022-03-23 07:21] LABS: BUN/Creatinine Ratio 59.5; Calcium 8.8 mg/dL (8.5-10.1); Magnesium 3.9 mg/dL (1.6-2.6); Phosphorus 4.9 mg/dL (2.5-4.90); Potassium 4.4 mmol/L (3.5-5.1)
[2022-03-23] MEDS: methylPREDNISolone SOD SUCC 40 MG/ML VL IV SCH ×2 (10:11→22:17)
[2022-03-23] MEDS: CEFEPIME 2 GM in SODIUM CHL 0.9% 50 ML IV SCH ×2 (10:11→22:16)
[2022-03-23] MEDS: PANTOPRAZOLE 40 MG/10 ML VIAL INJ IV SCH (10:11)
[2022-03-23] MEDS: SODIUM CHLOR 0.9% PF (SALINE LOCK) 10ML VIAL/SYR IV SCH ×2 (10:12→22:17)
[2022-03-23] MEDS: amLODIPine BESYLATE 5 MG TAB PO SCH (10:13)
[2022-03-23] MEDS: METOPROLOL TARTRATE 25 MG TAB PO SCH ×2 (10:14→22:21)
[2022-03-23] MEDS: ENOXAPARIN SOD 40 MG/0.4 ML SYRINGE SC SCH (10:15)
[2022-03-23] MEDS: LABETALOL HCL 200 MG TAB PO SCH ×2 (10:15→22:22)
[2022-03-23 10:47] LABS: Band Neutrophils % (manual) 3; Lymphocytes % (manual) 3 (10.0-50.0); Metamyelocytes % 1; Monocytes % (manual) 12 (0-12)
[2022-03-23] MEDS: hydrALAZINE HCL 25 MG TAB PO SCH ×3 (11:00→22:20)
[2022-03-23] MEDS ORDERED: POLYETHYLENE GLYCOL 17 GM PWDR PO ONE (11:15)
[2022-03-23] MEDS ORDERED: DOCUSATE ORAL LIQUID 100 MG/10 ML UD GT ONE (11:15)
[2022-03-23] MEDS: fentaNYL Drip 2500mCg/250mlNS 250 ML IV SCH (17:55)
[2022-03-23] MEDS: MIDAZOLAM DRIP 50 mg/50mL 50 ML IV SCH (18:52)
[2022-03-23] MEDS: DOCUSATE ORAL LIQUID 100 MG/10 ML UD GT SCH (22:15)
[2022-03-24] VITALS (100 sets, daily range): BP systolic 105–157; BP diastolic 50–70
[2022-03-24] MEDS: FREE WATER GT SCH ×5 (00:44→23:50)
[2022-03-24] MEDS: InsuLIN REG 1unit/0.01ml Soln (100units/ml) SC SCH ×5 (00:45→23:58)
[2022-03-24] MEDS: ACCU-CHEK COMFORT CURVE STRIP VI SCH ×5 (00:45→23:56)
[2022-03-24] MEDS: ALBUTEROL MEDNEB 2.5 mg/3ml NEB NEB SCH ×5 (02:18→21:54)
[2022-03-24] MEDS: IPRATROPIUM BROM 0.5 MG/2.5ML INH SOL NEB SCH ×5 (02:18→21:54)
[2022-03-24 03:56] LABS: Basophils # (auto) 0 10 ^3/uL (0-0.2); Basophils % (auto) 0.5 % (0.0-2.0); Eosinophils # (auto) 0 10 ^3/uL (0-0.8); Eosinophils % (auto) 0.1 % (0.0-7.0); Hemoglobin 11.8 g/dL (13.5-17.5); Lymphocytes # (auto) 0.3 10 ^3/uL (0.4-5.4); Lymphocytes % (auto) 2.8 % (10.0-50.0); Mean Corpuscular Hemoglobin 31.2 pg (28.0-32.0); Mean Corpuscular Hgb Conc. 32.8 g/dL (32.0-36.0); Monocytes # (auto) 0.4 10 ^3/uL (0-1.3); Monocytes % (auto) 3.8 % (0.0-12.0); Neutrophils # (auto) 8.7 10 ^3/uL (1.6-8.6); Neutrophils % (auto) 92.8 % (37.0-80.0); Red Blood Cells 3.79 10^6/uL (4.5-5.90); White Blood Cell 9.4 10^3/uL (4.4-10.8)
[2022-03-24 04:14] LABS: Calcium 8.2 mg/dL (8.5-10.1); Potassium 4.3 mmol/L (3.5-5.1)
[2022-03-24 04:16] LABS: BUN/Creatinine Ratio 63.4
[2022-03-24] MEDS: hydrALAZINE HCL 25 MG TAB PO SCH (06:08)
[2022-03-24] MEDS: SODIUM ZIRCONIUM CYCL 10 GM PAK PO SCH (06:09)
[2022-03-24] MEDS: PROPOFOL 100 ML IV SCH (07:57)
[2022-03-24] MEDS: NOREPINEPHRINE 8 MG/250ML KIT 250 ML IV SCH (07:57)
[2022-03-24] MEDS: PANTOPRAZOLE 40 MG/10 ML VIAL INJ IV SCH (09:22)
[2022-03-24] MEDS: ENOXAPARIN SOD 40 MG/0.4 ML SYRINGE SC SCH (09:22)
[2022-03-24] MEDS: methylPREDNISolone SOD SUCC 40 MG/ML VL IV SCH ×2 (09:22→21:35)
[2022-03-24] MEDS: SODIUM CHLOR 0.9% PF (SALINE LOCK) 10ML VIAL/SYR IV SCH ×2 (09:23→21:37)
[2022-03-24] MEDS: SOD CHL 0.45% 1,000 ML IV SCH ×2 (10:06→23:12)
[2022-03-24] MEDS: POLYETHYLENE GLYCOL 17 GM PWDR PO SCH (10:40)
[2022-03-24] MEDS: DOCUSATE ORAL LIQUID 100 MG/10 ML UD GT SCH ×2 (10:40→21:35)
[2022-03-24] MEDS: amLODIPine BESYLATE 5 MG TAB PO SCH (10:41)
[2022-03-24] MEDS: METOPROLOL TARTRATE 25 MG TAB PO SCH ×2 (10:43→21:36)
[2022-03-24] MEDS: LABETALOL HCL 200 MG TAB PO SCH (10:43)
[2022-03-24] MEDS: CEFEPIME 2 GM in SODIUM CHL 0.9% 50 ML IV SCH ×2 (10:44→21:36)
[2022-03-24] MEDS: Nepro With Carb Steady 1 Liter Bottle GT SCH (10:57)
[2022-03-25] VITALS (84 sets, daily range): BP systolic 131–206; BP diastolic 58–89
[2022-03-25] MEDS: PROPOFOL 100 ML IV SCH (01:12)
[2022-03-25] MEDS: NOREPINEPHRINE 8 MG/250ML KIT 250 ML IV SCH (01:45)
[2022-03-25] MEDS: MIDAZOLAM DRIP 50 mg/50mL 50 ML IV SCH (01:45)
[2022-03-25] MEDS: IPRATROPIUM BROM 0.5 MG/2.5ML INH SOL NEB SCH ×6 (02:17→22:10)
[2022-03-25] MEDS: ALBUTEROL MEDNEB 2.5 mg/3ml NEB NEB SCH ×6 (02:18→22:10)
[2022-03-25 04:16] LABS: BUN/Creatinine Ratio 60.9; Calcium 7.9 mg/dL (8.5-10.1); Potassium 4.3 mmol/L (3.5-5.1)
[2022-03-25] MEDS: FREE WATER GT SCH ×3 (05:11→16:27)
[2022-03-25] MEDS: ACCU-CHEK COMFORT CURVE STRIP VI SCH ×3 (06:05→18:01)
[2022-03-25] MEDS: InsuLIN REG 1unit/0.01ml Soln (100units/ml) SC SCH ×3 (06:07→18:02)
[2022-03-25] MEDS: POLYETHYLENE GLYCOL 17 GM PWDR PO SCH (10:00)
[2022-03-25] MEDS: DOCUSATE ORAL LIQUID 100 MG/10 ML UD GT SCH ×2 (10:00→21:46)
[2022-03-25] MEDS ORDERED: SOD CHL 0.45% 1,000 ML IV SCH (10:15)
[2022-03-25] MEDS: methylPREDNISolone SOD SUCC 40 MG/ML VL IV SCH ×2 (10:56→21:46)
[2022-03-25] MEDS: ENOXAPARIN SOD 40 MG/0.4 ML SYRINGE SC SCH (10:56)
[2022-03-25] MEDS: SODIUM CHLOR 0.9% PF (SALINE LOCK) 10ML VIAL/SYR IV SCH ×2 (10:57→21:53)
[2022-03-25] MEDS: PANTOPRAZOLE 40 MG/10 ML VIAL INJ IV SCH (10:57)
[2022-03-25] MEDS: CEFEPIME 2 GM in SODIUM CHL 0.9% 50 ML IV SCH ×2 (10:57→21:54)
[2022-03-25] MEDS: METOPROLOL TARTRATE 25 MG TAB PO SCH ×2 (10:58→21:52)
[2022-03-25] MEDS: fentaNYL Drip 2500mCg/250mlNS 250 ML IV SCH (11:15)
[2022-03-25] MEDS: LABETALOL HCL 5 MG/ML 4ML SYRINGE IV PRN ×3 (12:10→22:06)
[2022-03-25] MEDS ORDERED: FUROSEMIDE 20 MG/2 ML VIAL ONE (12:21)
[2022-03-25] MEDS ORDERED: FUROSEMIDE 20 MG/2 ML VIAL IV ONE ×2 (12:30→13:00)
[2022-03-25] MEDS: hydrALAZINE HCL 20 MG/ML VL IV PRN (12:44)
[2022-03-25] MEDS ORDERED: NITROGLYCERIN 2% OINT 1GM PKG TD ONE (12:45)
[2022-03-25] MEDS ORDERED: FLUCONAZOLE 200MG/100ML 100 ML IV ONE (14:30)
[2022-03-26] VITALS (64 sets, daily range): BP systolic 129–184; BP diastolic 61–93
[2022-03-26] MEDS: hydrALAZINE HCL 20 MG/ML VL IV PRN ×3 (00:05→17:27)
[2022-03-26] MEDS: InsuLIN REG 1unit/0.01ml Soln (100units/ml) SC SCH ×4 (00:17→17:38)
[2022-03-26] MEDS: ACCU-CHEK COMFORT CURVE STRIP VI SCH ×4 (00:18→17:45)
[2022-03-26] MEDS ORDERED: ONDANSETRON ODT 4 MG TAB PO PRN (01:30)
[2022-03-26] MEDS ORDERED: TEMAZEPAM 15 MG CAP PO ONE (01:30)
[2022-03-26] MEDS ORDERED: ONDANSETRON HCL 4 MG/2 ML VIAL IV PRN (01:30)
[2022-03-26] MEDS ORDERED: ONDANSETRON HCL 4 MG/2 ML VIAL ONE (01:30)
[2022-03-26] MEDS: PROPOFOL 100 ML IV SCH (01:45)
[2022-03-26] MEDS: MIDAZOLAM DRIP 50 mg/50mL 50 ML IV SCH (01:45)
[2022-03-26] MEDS: NOREPINEPHRINE 8 MG/250ML KIT 250 ML IV SCH (03:50)
[2022-03-26 04:04] LABS: Hematocrit 39.4 % (41.0-53.0); Hemoglobin 12.9 g/dL (13.5-17.5); Mean Corpuscular Hemoglobin 31.2 pg (28.0-32.0); Mean Corpuscular Hgb Conc. 32.7 g/dL (32.0-36.0); Mean Corpuscular Volume 95.5 fL (80.0-100.0); Red Blood Cells 4.12 10^6/uL (4.5-5.90); Red Cell Distribution Width 14.8 % (11.8-14.3); White Blood Cell 9.5 10^3/uL (4.4-10.8)
[2022-03-26 04:17] LABS: Basophils % (manual) 0 (0.0-2.0); Blast Cells 0; Eosinophils % (manual) 0 (0-7); Metamyelocytes % 0; Reactive Lymphocytes 0
[2022-03-26 04:21] LABS: Calcium 8.3 mg/dL (8.5-10.1); Potassium 3.8 mmol/L (3.5-5.1)
[2022-03-26 04:23] LABS: BUN/Creatinine Ratio 55.1
[2022-03-26 04:29] LABS: Albumin 2.7 g/dL (3.4-5.0); Total Protein 6.3 g/dL (6.4-8.2)
[2022-03-26 05:11] LABS: Band Neutrophils % (manual) 9; Lymphocytes % (manual) 4 (10.0-50.0); Monocytes % (manual) 3 (0-12); Myelocytes % 2; Promyelocytes % 1
[2022-03-26] MEDS: FREE WATER GT SCH ×2 (06:03)
[2022-03-26] MEDS: ALBUTEROL MEDNEB 2.5 mg/3ml NEB NEB SCH ×5 (06:40→21:53)
[2022-03-26] MEDS: IPRATROPIUM BROM 0.5 MG/2.5ML INH SOL NEB SCH ×5 (06:40→21:53)
[2022-03-26] MEDS: FLUCONAZOLE 200MG/100ML 100 ML IV SCH (09:32)
[2022-03-26] MEDS: PANTOPRAZOLE 40 MG/10 ML VIAL INJ IV SCH (09:32)
[2022-03-26] MEDS: ENOXAPARIN SOD 40 MG/0.4 ML SYRINGE SC SCH (09:33)
[2022-03-26] MEDS: methylPREDNISolone SOD SUCC 40 MG/ML VL IV SCH ×2 (09:33→21:45)
[2022-03-26] MEDS: SODIUM CHLOR 0.9% PF (SALINE LOCK) 10ML VIAL/SYR IV SCH ×2 (09:33→22:00)
[2022-03-26] MEDS: CEFEPIME 2 GM in SODIUM CHL 0.9% 50 ML IV SCH ×2 (10:37→21:46)
[2022-03-26] MEDS: fentaNYL Drip 2500mCg/250mlNS 250 ML IV SCH (11:15)
[2022-03-26] MEDS: METOPROLOL TARTRATE 25 MG TAB PO SCH ×2 (12:29→21:46)
[2022-03-26] MEDS: POLYETHYLENE GLYCOL 17 GM PWDR PO SCH (12:29)
[2022-03-26] MEDS: DOCUSATE ORAL LIQUID 100 MG/10 ML UD GT SCH ×2 (12:29→21:44)
[2022-03-26] MEDS ORDERED: LABETALOL HCL 5 MG/ML 4ML SYRINGE IV PRN (15:00)
[2022-03-27] VITALS (23 sets, daily range): BP systolic 121–191; BP diastolic 70–101
[2022-03-27] MEDS: ACCU-CHEK COMFORT CURVE STRIP VI SCH ×4 (00:07→17:57)
[2022-03-27] MEDS: InsuLIN REG 1unit/0.01ml Soln (100units/ml) SC SCH ×4 (00:13→17:59)
[2022-03-27] MEDS: IPRATROPIUM BROM 0.5 MG/2.5ML INH SOL NEB SCH ×6 (02:46→22:13)
[2022-03-27] MEDS: ALBUTEROL MEDNEB 2.5 mg/3ml NEB NEB SCH ×6 (02:46→22:13)
[2022-03-27 04:05] LABS: Hemoglobin 12.9 g/dL (13.5-17.5); Mean Corpuscular Hemoglobin 31.1 pg (28.0-32.0); Mean Corpuscular Hgb Conc. 33.2 g/dL (32.0-36.0); Mean Corpuscular Volume 93.8 fL (80.0-100.0); Red Blood Cells 4.15 10^6/uL (4.5-5.90); Red Cell Distribution Width 14.8 % (11.8-14.3); White Blood Cell 10.4 10^3/uL (4.4-10.8)
[2022-03-27 04:10] LABS: Basophils % (manual) 0 (0.0-2.0); Blast Cells 0; Eosinophils % (manual) 0 (0-7); Metamyelocytes % 0; Myelocytes % 0; Promyelocytes % 0; Reactive Lymphocytes 0
[2022-03-27 04:20] LABS: Albumin 2.6 g/dL (3.4-5.0); BUN/Creatinine Ratio 49.7; Calcium 8.6 mg/dL (8.5-10.1)
[2022-03-27 04:23] LABS: Bilirubin, Total 2.1 mg/dL (0.2-1.0); Total Protein 5.8 g/dL (6.4-8.2)
[2022-03-27] MEDS: hydrALAZINE HCL 20 MG/ML VL IV PRN ×2 (04:40→12:03)
[2022-03-27 04:50] LABS: Band Neutrophils % (manual) 7; Lymphocytes % (manual) 3 (10.0-50.0); Monocytes % (manual) 1 (0-12)
[2022-03-27] MEDS: POLYETHYLENE GLYCOL 17 GM PWDR PO SCH (09:38)
[2022-03-27] MEDS: PANTOPRAZOLE 40 MG/10 ML VIAL INJ IV SCH (09:38)
[2022-03-27] MEDS: ENOXAPARIN SOD 40 MG/0.4 ML SYRINGE SC SCH (09:38)
[2022-03-27] MEDS: FLUCONAZOLE 200MG/100ML 100 ML IV SCH (09:38)
[2022-03-27] MEDS: DOCUSATE ORAL LIQUID 100 MG/10 ML UD GT SCH ×2 (09:38→22:27)
[2022-03-27] MEDS: methylPREDNISolone SOD SUCC 40 MG/ML VL IV SCH ×2 (09:39→22:27)
[2022-03-27] MEDS: SODIUM CHLOR 0.9% PF (SALINE LOCK) 10ML VIAL/SYR IV SCH ×2 (09:39→22:27)
[2022-03-27] MEDS: METOPROLOL TARTRATE 25 MG TAB PO SCH ×2 (09:40→22:27)
[2022-03-27] MEDS: CEFEPIME 2 GM in SODIUM CHL 0.9% 50 ML IV SCH ×2 (12:55→22:28)
[2022-03-28] MEDS: ACCU-CHEK COMFORT CURVE STRIP VI SCH ×4 (00:08→17:46)
[2022-03-28] MEDS: InsuLIN REG 1unit/0.01ml Soln (100units/ml) SC SCH ×4 (00:10→17:47)
[2022-03-28] MEDS: IPRATROPIUM BROM 0.5 MG/2.5ML INH SOL NEB SCH ×6 (02:22→21:43)
[2022-03-28] MEDS: ALBUTEROL MEDNEB 2.5 mg/3ml NEB NEB SCH ×6 (02:22→21:43)
[2022-03-28 05:00] VITALS: BP 157/87
[2022-03-28] MEDS: hydrALAZINE HCL 20 MG/ML VL IV PRN (05:29)
[2022-03-28 07:15] LABS: Hematocrit 38.6 % (41.0-53.0); Mean Corpuscular Hemoglobin 31.4 pg (28.0-32.0); Mean Corpuscular Hgb Conc. 33.7 g/dL (32.0-36.0); Mean Corpuscular Volume 93.2 fL (80.0-100.0); Red Blood Cells 4.14 10^6/uL (4.5-5.90); Red Cell Distribution Width 14.5 % (11.8-14.3); White Blood Cell 12.2 10^3/uL (4.4-10.8)
[2022-03-28 07:43] LABS: Basophils % (manual) 0 (0.0-2.0); Blast Cells 0; Eosinophils % (manual) 0 (0-7); Metamyelocytes % 0; Myelocytes % 0; Promyelocytes % 0; Reactive Lymphocytes 0
[2022-03-28 07:52] LABS: Albumin 2.5 g/dL (3.4-5.0); Calcium 8.4 mg/dL (8.5-10.1); Potassium 3.9 mmol/L (3.5-5.1)
[2022-03-28 07:55] LABS: BUN/Creatinine Ratio 44.6; Bilirubin, Total 1.8 mg/dL (0.2-1.0); Total Protein 5.5 g/dL (6.4-8.2)
[2022-03-28 08:28] LABS: Band Neutrophils % (manual) 6; Lymphocytes % (manual) 2 (10.0-50.0); Monocytes % (manual) 1 (0-12)
[2022-03-28 09:00] VITALS: BP 125/74
[2022-03-28] MEDS: POLYETHYLENE GLYCOL 17 GM PWDR PO SCH (09:58)
[2022-03-28] MEDS: DOCUSATE ORAL LIQUID 100 MG/10 ML UD GT SCH ×2 (09:58→21:59)
[2022-03-28] MEDS: CEFEPIME 2 GM in SODIUM CHL 0.9% 50 ML IV SCH ×2 (09:58→21:59)
[2022-03-28] MEDS: METOPROLOL TARTRATE 25 MG TAB PO SCH ×2 (09:59→22:10)
[2022-03-28] MEDS: PANTOPRAZOLE 40 MG TAB PO SCH (09:59)
[2022-03-28] MEDS: SODIUM CHLOR 0.9% PF (SALINE LOCK) 10ML VIAL/SYR IV SCH ×2 (09:59→22:00)
[2022-03-28] MEDS: methylPREDNISolone SOD SUCC 40 MG/ML VL IV SCH (09:59)
[2022-03-28] MEDS: FLUCONAZOLE 200MG/100ML 100 ML IV SCH (09:59)
[2022-03-28] MEDS: ENOXAPARIN SOD 40 MG/0.4 ML SYRINGE SC SCH (10:00)
[2022-03-28 13:00] VITALS: BP 137/83
[2022-03-28] MEDS ORDERED: FUROSEMIDE 20 MG TAB PO ONE (14:30)
[2022-03-28 17:00] VITALS: BP 146/82
[2022-03-28 20:00] VITALS: BP 105/65
[2022-03-28 22:00] VITALS: BP 105/65
[2022-03-29] VITALS (7 sets, daily range): BP systolic 115–157; BP diastolic 66–78
[2022-03-29] MEDS: ACCU-CHEK COMFORT CURVE STRIP VI SCH ×5 (00:08→23:49)
[2022-03-29] MEDS: InsuLIN REG 1unit/0.01ml Soln (100units/ml) SC SCH ×5 (00:14→23:49)
[2022-03-29] MEDS: IPRATROPIUM BROM 0.5 MG/2.5ML INH SOL NEB SCH ×5 (02:22→18:46)
[2022-03-29] MEDS: ALBUTEROL MEDNEB 2.5 mg/3ml NEB NEB SCH ×5 (02:22→18:47)
[2022-03-29 05:51] LABS: BUN/Creatinine Ratio 40.7; Calcium 8.2 mg/dL (8.5-10.1); Potassium 3.6 mmol/L (3.5-5.1)
[2022-03-29] MEDS: predniSONE 20 MG TAB PO SCH (09:05)
[2022-03-29] MEDS: CEFEPIME 2 GM in SODIUM CHL 0.9% 50 ML IV SCH ×2 (09:05→22:12)
[2022-03-29] MEDS: FUROSEMIDE 20 MG TAB PO SCH (09:06)
[2022-03-29] MEDS: PANTOPRAZOLE 40 MG TAB PO SCH (09:06)
[2022-03-29] MEDS: POTASSIUM CHL 10 Meq TABLET PO SCH (09:06)
[2022-03-29] MEDS: FLUCONAZOLE 100 MG TAB PO SCH (09:07)
[2022-03-29] MEDS: DOCUSATE ORAL LIQUID 100 MG/10 ML UD GT SCH ×2 (09:08→22:00)
[2022-03-29] MEDS: ENOXAPARIN SOD 40 MG/0.4 ML SYRINGE SC SCH (09:08)
[2022-03-29] MEDS: SODIUM CHLOR 0.9% PF (SALINE LOCK) 10ML VIAL/SYR IV SCH ×2 (09:08→22:12)
[2022-03-29] MEDS: POLYETHYLENE GLYCOL 17 GM PWDR PO SCH (09:08)
[2022-03-29] MEDS: METOPROLOL TARTRATE 25 MG TAB PO SCH ×2 (10:00→22:13)
[2022-03-29] MEDS: ACETAMINOPHEN 325 MG TAB PO PRN (23:33)
[2022-03-30] MEDS: IPRATROPIUM BROM 0.5 MG/2.5ML INH SOL NEB SCH ×5 (01:46→21:14)
[2022-03-30] MEDS: ALBUTEROL MEDNEB 2.5 mg/3ml NEB NEB SCH ×5 (01:46→21:13)
[2022-03-30 05:00] VITALS: BP 139/75
[2022-03-30] MEDS: InsuLIN REG 1unit/0.01ml Soln (100units/ml) SC SCH ×3 (06:00→18:16)
[2022-03-30] MEDS: ACCU-CHEK COMFORT CURVE STRIP VI SCH ×3 (06:11→17:57)
[2022-03-30 09:00] VITALS: BP 113/65
[2022-03-30] MEDS: CEFEPIME 2 GM in SODIUM CHL 0.9% 50 ML IV SCH ×2 (09:14→22:00)
[2022-03-30] MEDS: POTASSIUM CHL 10 Meq TABLET PO SCH (09:15)
[2022-03-30] MEDS: ENOXAPARIN SOD 40 MG/0.4 ML SYRINGE SC SCH (09:15)
[2022-03-30] MEDS: FLUCONAZOLE 100 MG TAB PO SCH (09:16)
[2022-03-30] MEDS: PANTOPRAZOLE 40 MG TAB PO SCH (09:16)
[2022-03-30] MEDS: FUROSEMIDE 20 MG TAB PO SCH (09:16)
[2022-03-30] MEDS: METOPROLOL TARTRATE 25 MG TAB PO SCH ×2 (09:17→22:01)
[2022-03-30] MEDS: predniSONE 20 MG TAB PO SCH (09:17)
[2022-03-30] MEDS: POLYETHYLENE GLYCOL 17 GM PWDR PO SCH (10:00)
[2022-03-30] MEDS: DOCUSATE ORAL LIQUID 100 MG/10 ML UD GT SCH ×2 (10:00→21:59)
[2022-03-30] MEDS: SODIUM CHLOR 0.9% PF (SALINE LOCK) 10ML VIAL/SYR IV SCH ×2 (10:42→22:00)
[2022-03-30 13:00] VITALS: BP 105/66
[2022-03-30 17:09] VITALS: BP 108/65
[2022-03-30 22:00] VITALS: BP 114/69
[2022-03-31] MEDS: ACCU-CHEK COMFORT CURVE STRIP VI SCH ×4 (00:15→17:16)
[2022-03-31] MEDS: InsuLIN REG 1unit/0.01ml Soln (100units/ml) SC SCH ×5 (00:21→22:53)
[2022-03-31] MEDS: ALBUTEROL MEDNEB 2.5 mg/3ml NEB NEB SCH ×6 (02:00→21:51)
[2022-03-31] MEDS: IPRATROPIUM BROM 0.5 MG/2.5ML INH SOL NEB SCH ×6 (02:00→21:51)
[2022-03-31] MEDS: ACETAMINOPHEN 325 MG TAB PO PRN (04:01)
[2022-03-31 05:00] VITALS: BP 115/75
[2022-03-31 09:00] VITALS: BP 90/60
[2022-03-31] MEDS: METOPROLOL TARTRATE 25 MG TAB PO SCH ×2 (10:00→22:00)
[2022-03-31] MEDS: POLYETHYLENE GLYCOL 17 GM PWDR PO SCH (10:00)
[2022-03-31] MEDS: DOCUSATE ORAL LIQUID 100 MG/10 ML UD GT SCH ×2 (10:00→22:00)
[2022-03-31] MEDS: FUROSEMIDE 20 MG TAB PO SCH (10:14)
[2022-03-31] MEDS: predniSONE 20 MG TAB PO SCH (10:15)
[2022-03-31] MEDS: POTASSIUM CHL 10 Meq TABLET PO SCH (10:15)
[2022-03-31] MEDS: CEFEPIME 2 GM in SODIUM CHL 0.9% 50 ML IV SCH ×2 (10:15→22:22)
[2022-03-31] MEDS: ENOXAPARIN SOD 40 MG/0.4 ML SYRINGE SC SCH (10:16)
[2022-03-31] MEDS: FLUCONAZOLE 100 MG TAB PO SCH (10:16)
[2022-03-31] MEDS: PANTOPRAZOLE 40 MG TAB PO SCH (10:16)
[2022-03-31] MEDS: SODIUM CHLOR 0.9% PF (SALINE LOCK) 10ML VIAL/SYR IV SCH ×2 (10:16→22:00)
[2022-03-31 13:00] VITALS: BP 92/50
[2022-03-31 17:00] VITALS: BP 105/61
[2022-03-31 18:00] VITALS: BP 105/61
[2022-04-01] MEDS: IPRATROPIUM BROM 0.5 MG/2.5ML INH SOL NEB SCH ×4 (01:54→14:02)
[2022-04-01] MEDS: ALBUTEROL MEDNEB 2.5 mg/3ml NEB NEB SCH ×4 (01:54→14:03)
[2022-04-01 05:30] VITALS: BP 134/70
[2022-04-01] MEDS: InsuLIN REG 1unit/0.01ml Soln (100units/ml) SC SCH ×3 (05:42→17:45)
[2022-04-01 06:05] LABS: Basophils # (auto) 0 10 ^3/uL (0-0.2); Basophils % (auto) 0.1 % (0.0-2.0); Eosinophils # (auto) 0 10 ^3/uL (0-0.8); Eosinophils % (auto) 0.3 % (0.0-7.0); Hematocrit 33.1 % (41.0-53.0); Lymphocytes # (auto) 1.1 10 ^3/uL (0.4-5.4); Mean Corpuscular Hemoglobin 31.3 pg (28.0-32.0); Mean Corpuscular Hgb Conc. 33.4 g/dL (32.0-36.0); Mean Corpuscular Volume 93.7 fL (80.0-100.0); Monocytes # (auto) 0.6 10 ^3/uL (0-1.3); Monocytes % (auto) 4.7 % (0.0-12.0); Neutrophils # (auto) 10.2 10 ^3/uL (1.6-8.6); Neutrophils % (auto) 85.9 % (37.0-80.0); Nucleated Red Blood Cells % 0.2 %; Red Blood Cells 3.53 10^6/uL (4.5-5.90); Red Cell Distribution Width 14.5 % (11.8-14.3); White Blood Cell 11.9 10^3/uL (4.4-10.8)
[2022-04-01] MEDS: ACCU-CHEK COMFORT CURVE STRIP VI SCH ×5 (06:25→18:12)
[2022-04-01 06:28] LABS: Anion Gap 4 (5-15); Blood Urea Nitrogen 40 mg/dL (7-18); Calcium 8.2 mg/dL (8.5-10.1); Carbon Dioxide 26 mmol/L (21-32); Chloride 106 mmol/L (98-107); GFR African American 71 mL/min; GFR Non-African American 59 mL/min; Glucose 108 mg/dL (74-106); Potassium 4.2 mmol/L (3.5-5.1); Sodium 136 mmol/L (136-145)
[2022-04-01 08:54] VITALS: BP 112/72
[2022-04-01] MEDS: DOCUSATE ORAL LIQUID 100 MG/10 ML UD GT SCH ×2 (08:58→09:51)
[2022-04-01] MEDS: PANTOPRAZOLE 40 MG TAB PO SCH (08:59)
[2022-04-01] MEDS: FUROSEMIDE 20 MG TAB PO SCH (08:59)
[2022-04-01] MEDS: POTASSIUM CHL 10 Meq TABLET PO SCH (09:01)
[2022-04-01] MEDS: FLUCONAZOLE 100 MG TAB PO SCH (09:02)
[2022-04-01] MEDS: METOPROLOL TARTRATE 25 MG TAB PO SCH (09:03)
[2022-04-01] MEDS: ENOXAPARIN SOD 40 MG/0.4 ML SYRINGE SC SCH (09:04)
[2022-04-01] MEDS: CEFEPIME 2 GM in SODIUM CHL 0.9% 50 ML IV SCH (09:48)
[2022-04-01] MEDS ORDERED: predniSONE 20 MG TAB PO SCH (10:00)
[2022-04-01 10:57] VITALS: BP_SYST 110; BP_SYST 112; BP_DIAS 72
[2022-04-01] MEDS: POLYETHYLENE GLYCOL 17 GM PWDR PO SCH (11:10)
[2022-04-01] MEDS: SODIUM CHLOR 0.9% PF (SALINE LOCK) 10ML VIAL/SYR IV SCH (11:24)
[2022-04-01 13:00] VITALS: BP 104/59
[2022-04-01 16:00] VITALS: BP 110/72
== END 2022-04-01 21:00 | DRG 870 ==
LOC: EDUNIT# 16:58 → EDBD 16:58 → ER 16:58 → TELE 03-17 02:07 → ICU WEST 03-18 12:15 → TELE-WESTW 03-27 22:54
PROVIDERS: ADMIT Nurse Practitioner; ATTEND Internal Medicine
PROC: 5A1935Z Respiratory Ventilation, Less than 24 Consecutive Hours (ICD-10-PCS; 2022-03-16)
PROC: 0BH17EZ Insertion of Endotracheal Airway into Trachea, Via Natural or Artificial Opening (ICD-10-PCS; 2022-03-16)
PROC: 5A1955Z Respiratory Ventilation, Greater than 96 Consecutive Hours (ICD-10-PCS; principal; 2022-03-17)
PROC: 02HV33Z Insertion of Infusion Device into Superior Vena Cava, Percutaneous Approach (ICD-10-PCS; 2022-03-17)
PROC: B548ZZA Ultrasonography of Superior Vena Cava, Guidance (ICD-10-PCS; 2022-03-17)
PROC: 0T2BX0Z Change Drainage Device in Bladder, External Approach (ICD-10-PCS; 2022-03-23)
DX: A41.52 Sepsis due to Pseudomonas (principal); J15.1 Pneumonia due to Pseudomonas; J96.02 Acute respiratory failure with hypercapnia; I50.31 Acute diastolic (congestive) heart failure; N17.0 Acute kidney failure with tubular necrosis; E43 Unspecified severe protein-calorie malnutrition; J96.01 Acute respiratory failure with hypoxia; J44.1 Chronic obstructive pulmonary disease with (acute) exacerbation; N39.0 Urinary tract infection, site not specified; E87.0 Hyperosmolality and hypernatremia; J44.0 Chronic obstructive pulmonary disease with (acute) lower respiratory infection; E87.1 Hypo-osmolality and hyponatremia; D69.6 Thrombocytopenia, unspecified; E11.9 Type 2 diabetes mellitus without complications; M79.89 Other specified soft tissue disorders; I11.0 Hypertensive heart disease with heart failure; E87.5 Hyperkalemia; E66.9 Obesity, unspecified; Z68.32 Body mass index [BMI] 32.0-32.9, adult; Z88.1 Allergy status to other antibiotic agents; Z95.0 Presence of cardiac pacemaker; Z88.0 Allergy status to penicillin; Z88.2 Allergy status to sulfonamides; Z88.8 Allergy status to other drugs, medicaments and biological substances; Z93.59 Other cystostomy status
CPT/HCPCS: 31500; 36415; 36569; 36600; 71045; 71275; 80048; 80053; 80061; 81001; 82570; 82805; 82962; 83036; 83605; 83735; 83880; 83930; 83935; 84100; 84132; 84156; 84300; 84443; 84484; 85007; 85025; 85027; 85379; 85610; 85730; 87040; 87070; 87077; 87081; 87086; 87088; 87186; 87205; 87426; 93005; 93971; 94003; 94640; 94644; 96374; 96375; 97110; 97116; 97163; 97530; 99291; 99292; C9113; G0378; J0330; J0696; J1100; J1450; J1815; J2250; J2405; J2704; J3490; J7060

== ENCOUNTER 2022-04-18 19:55 | Inpatient (IN) | payer MEDICARE, MEDICAID ==
[~2022-04-18] VITALS: Ht 172.7 cm; Wt 103.3 kg
[2022-04-18 21:27] LABS: Basophils # (auto) 0.1 10 ^3/uL (0-0.2); Eosinophils # (auto) 0 10 ^3/uL (0-0.8); Eosinophils % (auto) 1.1 % (0.0-7.0); Lymphocytes # (auto) 1.2 10 ^3/uL (0.4-5.4); Lymphocytes % (auto) 25.9 % (10.0-50.0); Mean Corpuscular Hemoglobin 30.5 pg (28.0-32.0); Mean Corpuscular Hgb Conc. 33.3 g/dL (32.0-36.0); Mean Corpuscular Volume 91.6 fL (80.0-100.0); Monocytes # (auto) 0.7 10 ^3/uL (0-1.3); Monocytes % (auto) 15.7 % (0.0-12.0); Neutrophils # (auto) 2.5 10 ^3/uL (1.6-8.6); Neutrophils % (auto) 55.3 % (37.0-80.0); Nucleated Red Blood Cells % 0.1 %; Red Cell Distribution Width 14.2 % (11.8-14.3); White Blood Cell 4.5 10^3/uL (4.4-10.8)
[2022-04-18 21:30] LABS: Albumin 2.5 g/dL (3.4-5.0); Calcium 8.5 mg/dL (8.5-10.1); Potassium 3.3 mmol/L (3.5-5.1)
[2022-04-18 21:33] LABS: INR 1.01 (0.9-1.15); Partial Thromboplastin Time 28.2 sec (24.6-33.4)
[2022-04-18 21:37] LABS: BUN/Creatinine Ratio 18.7; Bilirubin, Total 0.6 mg/dL (0.2-1.0); Total Protein 6.2 g/dL (6.4-8.2)
[2022-04-18] MEDS ORDERED: DexAMETHasone SOD PHOS 10MG/1ML VIAL INJ IV ONE (22:15)
[2022-04-18] MEDS ORDERED: ALBUTEROL SULF 2.5 MG/0.5ML(0.5%) NEB SOLN NEB ONE (22:15)
[2022-04-18] MEDS ORDERED: IOHEXOL 350 MG/ML 100ML IJ ONE (22:22)
[2022-04-18] MEDS ORDERED: ACETAMINOPHEN 325 MG TAB PO PRN (23:45)
[2022-04-18] MEDS ORDERED: HYDROcodone-ACET 5/325MG TAB PO PRN (23:45)
[2022-04-18] MEDS ORDERED: MORPHINE SULFATE INJ 2 MG/ml SYRG IV PRN (23:45)
[2022-04-18] MEDS ORDERED: ONDANSETRON HCL 4 MG/2 ML VIAL IV PRN (23:45)
[2022-04-18] MEDS ORDERED: NITROGLYCERIN 0.4 MG SL TAB SL PRN (23:45)
[2022-04-18] MEDS ORDERED: ALBUTEROL SULF 2.5 MG/0.5ML(0.5%) NEB SOLN NEB PRN (23:45)
[2022-04-18] MEDS ORDERED: DOCUSATE SOD 100 MG CAP PO PRN (23:45)
[2022-04-18] MEDS ORDERED: POTASSIUM CHL 20 Meq TABLET PO ONE (23:45)
[2022-04-18] MEDS ORDERED: ALBUMIN 25% 100 ML IV ONE (23:45)
[2022-04-19 00:25] VITALS: BP 137/70
[2022-04-19] MEDS: hydrALAZINE HCL 20 MG/ML VL IV PRN ×2 (04:55→14:26)
[2022-04-19 05:36] LABS: Hematocrit 32.1 % (41.0-53.0); Mean Corpuscular Hemoglobin 31.5 pg (28.0-32.0); Mean Corpuscular Hgb Conc. 34.2 g/dL (32.0-36.0); Red Blood Cells 3.48 10^6/uL (4.5-5.90); Red Cell Distribution Width 14.3 % (11.8-14.3); White Blood Cell 4.4 10^3/uL (4.4-10.8)
[2022-04-19] MEDS: SODIUM CHLOR 0.9% PF (SALINE LOCK) 10ML VIAL/SYR IV SCH ×3 (05:44→22:50)
[2022-04-19 05:46] LABS: Basophils % (manual) 0 (0.0-2.0); Blast Cells 0; Eosinophils % (manual) 0 (0-7); Monocytes % (manual) 0 (0-12); Promyelocytes % 0; Reactive Lymphocytes 0
[2022-04-19 05:54] LABS: Albumin 3.1 g/dL (3.4-5.0); Calcium 8.9 mg/dL (8.5-10.1); Potassium 3.8 mmol/L (3.5-5.1)
[2022-04-19 05:58] LABS: BUN/Creatinine Ratio 17.4; Bilirubin, Total 0.5 mg/dL (0.2-1.0); Total Protein 6.8 g/dL (6.4-8.2)
[2022-04-19] MEDS ORDERED: methylPREDNISolone SOD SUCC 40 MG/ML VL IV SCH (06:00)
[2022-04-19 07:35] LABS: Band Neutrophils % (manual) 23; Lymphocytes % (manual) 4 (10.0-50.0); Metamyelocytes % 3; Myelocytes % 1
[2022-04-19 07:59] LABS: Urine Bacteria NONE SEEN /hpf (None Seen); Urine Blood Negative /uL (Negative); Urine WBC 155 /hpf (0 - 3)
[2022-04-19 08:18] LABS: Urine Specific Gravity > 1.050 (1.001-1.035)
[2022-04-19] MEDS: FAMOTIDINE (10MG/ML) 2ML VL IV SCH ×2 (09:48→22:49)
[2022-04-19] MEDS: ASPirin 81 mg TAB PO SCH (09:48)
[2022-04-19] MEDS ORDERED: ENOXAPARIN SOD 40 MG/0.4 ML SYRINGE SC SCH (10:00)
[2022-04-19] MEDS ORDERED: FUROSEMIDE 20 MG/2 ML VIAL IV SCH (10:00)
[2022-04-19] MEDS ORDERED: ENOXAPARIN SOD 100 MG/1 ML SYRINGE SC ONE (11:30)
[2022-04-19] MEDS ORDERED: LORazepam 0.5 MG TAB PO PRN (11:30)
[2022-04-19] MEDS ORDERED: ACETAMINOPHEN 500 MG TAB PO PRN (11:45)
[2022-04-19] MEDS ORDERED: ONDANSETRON HCL 4 MG/2 ML VIAL IV PRN (11:45)
[2022-04-19] MEDS: IPRATROPIUM BROM 0.5 MG/2.5ML INH SOL NEB SCH ×2 (12:00→19:45)
[2022-04-19] MEDS: ALBUTEROL SULF 2.5 MG/0.5ML(0.5%) NEB SOLN NEB SCH ×2 (12:00→19:44)
[2022-04-19] MEDS: DOXYCYCLINE 100MG/250ML 250 ML IV SCH ×2 (12:07→23:44)
[2022-04-19] MEDS: guaiFENesin-DM 100/10mg/5ml SYR PO PRN (12:31)
[2022-04-19 17:31] VITALS: BP 142/70
[2022-04-19] MEDS ORDERED: ALBU0.084 NEB (18:07)
[2022-04-19 22:00] VITALS: BP 154/80
[2022-04-19] MEDS: methylPREDNISolone SOD SUCC 40 MG/ML VL IV SCH (22:50)
[2022-04-19] MEDS: METOPROLOL TARTRATE 50 MG TAB PO SCH (22:51)
[2022-04-19] MEDS: LOSARTAN POTASSIUM 50 MG TAB PO SCH (22:52)
[2022-04-19] MEDS: ENOXAPARIN SOD 100 MG/1 ML SYRINGE SC SCH (22:52)
[2022-04-20] MEDS: IPRATROPIUM BROM 0.5 MG/2.5ML INH SOL NEB SCH ×4 (01:04→18:41)
[2022-04-20] MEDS: ALBUTEROL SULF 2.5 MG/0.5ML(0.5%) NEB SOLN NEB SCH ×4 (01:04→18:41)
[2022-04-20 05:00] VITALS: BP 162/77
[2022-04-20] MEDS: SODIUM CHLOR 0.9% PF (SALINE LOCK) 10ML VIAL/SYR IV SCH ×3 (07:12→21:48)
[2022-04-20 09:00] VITALS: BP 132/60
[2022-04-20] MEDS: FAMOTIDINE (10MG/ML) 2ML VL IV SCH ×2 (09:48→21:48)
[2022-04-20] MEDS: methylPREDNISolone SOD SUCC 40 MG/ML VL IV SCH ×2 (09:48→21:47)
[2022-04-20] MEDS: ASPirin 81 mg TAB PO SCH (09:50)
[2022-04-20] MEDS: CITALOPRAM HYDROBR 20 MG TAB PO SCH (09:50)
[2022-04-20] MEDS: TAMSULOSIN HYDROCHLORIDE 0.4 MG CAP PO SCH (09:51)
[2022-04-20] MEDS: LOSARTAN POTASSIUM 50 MG TAB PO SCH ×2 (09:51→21:47)
[2022-04-20] MEDS: METOPROLOL TARTRATE 50 MG TAB PO SCH ×2 (09:51→21:47)
[2022-04-20] MEDS: amLODIPine BESYLATE 5 MG TAB PO SCH (09:52)
[2022-04-20] MEDS: ENOXAPARIN SOD 100 MG/1 ML SYRINGE SC SCH ×2 (09:52→21:48)
[2022-04-20] MEDS: DOXYCYCLINE 100MG/250ML 250 ML IV SCH ×2 (12:14→23:15)
[2022-04-20 13:00] VITALS: BP 139/66
[2022-04-20 16:53] VITALS: BP 130/66
[2022-04-20 22:28] VITALS: BP 118/57
[2022-04-20] MEDS: guaiFENesin-DM 100/10mg/5ml SYR PO PRN (23:15)
[2022-04-21] MEDS: IPRATROPIUM BROM 0.5 MG/2.5ML INH SOL NEB SCH ×3 (00:26→12:02)
[2022-04-21] MEDS: ALBUTEROL SULF 2.5 MG/0.5ML(0.5%) NEB SOLN NEB SCH ×3 (00:26→12:02)
[2022-04-21] MEDS: SODIUM CHLOR 0.9% PF (SALINE LOCK) 10ML VIAL/SYR IV SCH ×3 (05:20→22:23)
[2022-04-21 05:35] VITALS: BP 163/57
[2022-04-21 09:00] VITALS: BP 143/72
[2022-04-21] MEDS: FAMOTIDINE (10MG/ML) 2ML VL IV SCH (10:46)
[2022-04-21] MEDS: ENOXAPARIN SOD 100 MG/1 ML SYRINGE SC SCH (10:46)
[2022-04-21] MEDS: methylPREDNISolone SOD SUCC 40 MG/ML VL IV SCH (10:46)
[2022-04-21] MEDS: ASPirin 81 mg TAB PO SCH (10:47)
[2022-04-21] MEDS: CITALOPRAM HYDROBR 20 MG TAB PO SCH (10:47)
[2022-04-21] MEDS: TAMSULOSIN HYDROCHLORIDE 0.4 MG CAP PO SCH (10:47)
[2022-04-21] MEDS: amLODIPine BESYLATE 5 MG TAB PO SCH (10:48)
[2022-04-21] MEDS: LOSARTAN POTASSIUM 50 MG TAB PO SCH ×2 (10:48→22:24)
[2022-04-21] MEDS: METOPROLOL TARTRATE 50 MG TAB PO SCH ×2 (10:48→22:25)
[2022-04-21] MEDS ORDERED: cefTRIAXone 1GM/50ML D5W 50 ML IV ONE (12:00)
[2022-04-21 13:00] VITALS: BP 137/48
[2022-04-21 17:00] VITALS: BP 155/60
[2022-04-21 22:00] VITALS: BP 117/60
[2022-04-21] MEDS: APIXABAN 5 MG TAB PO SCH (22:24)
[2022-04-22 00:50] VITALS: BP 117/60
[2022-04-22] MEDS: hydrALAZINE HCL 20 MG/ML VL IV PRN (04:24)
[2022-04-22 05:00] VITALS: BP 181/69
[2022-04-22] MEDS: SODIUM CHLOR 0.9% PF (SALINE LOCK) 10ML VIAL/SYR IV SCH ×3 (05:19→22:02)
[2022-04-22] MEDS: ALBUTEROL SULF 2.5 MG/0.5ML(0.5%) NEB SOLN NEB SCH ×5 (06:00→18:34)
[2022-04-22] MEDS: IPRATROPIUM BROM 0.5 MG/2.5ML INH SOL NEB SCH ×5 (06:00→18:34)
[2022-04-22 08:00] VITALS: BP 148/59
[2022-04-22] MEDS ORDERED: cefTRIAXone 1GM/50ML D5W 50 ML IV SCH (09:00)
[2022-04-22] MEDS: APIXABAN 5 MG TAB PO SCH ×2 (09:31→22:03)
[2022-04-22] MEDS: TAMSULOSIN HYDROCHLORIDE 0.4 MG CAP PO SCH (09:31)
[2022-04-22] MEDS: LOSARTAN POTASSIUM 50 MG TAB PO SCH ×2 (09:31→22:03)
[2022-04-22] MEDS: CITALOPRAM HYDROBR 20 MG TAB PO SCH (09:31)
[2022-04-22] MEDS: METOPROLOL TARTRATE 50 MG TAB PO SCH ×2 (09:32→22:03)
[2022-04-22] MEDS: ASPirin 81 mg TAB PO SCH (09:32)
[2022-04-22] MEDS: FAMOTIDINE 20 MG TAB PO SCH (09:32)
[2022-04-22] MEDS: amLODIPine BESYLATE 5 MG TAB PO SCH (09:32)
[2022-04-22] MEDS ORDERED: cefTAZidime 1 GM in SODIUM CHL 0.9% 50 ML IV ONE (11:15)
[2022-04-22 12:00] VITALS: BP 143/53
[2022-04-22] MEDS: cefTAZidime 1 GM in SODIUM CHL 0.9% 50 ML IV SCH ×2 (14:00→22:02)
[2022-04-22] MEDS: guaiFENesin-DM 100/10mg/5ml SYR PO PRN ×2 (14:03→20:37)
[2022-04-22] MEDS: ALBUTEROL SULF 2.5 MG/0.5ML(0.5%) NEB SOLN NEB PRN (14:47)
[2022-04-22] MEDS ORDERED: FUROSEMIDE 20 MG/2 ML VIAL IV ONE (15:15)
[2022-04-22 16:00] VITALS: BP 111/50
[2022-04-22 22:00] VITALS: BP 122/46
[2022-04-23] MEDS: IPRATROPIUM BROM 0.5 MG/2.5ML INH SOL NEB SCH ×4 (00:32→18:56)
[2022-04-23] MEDS: ALBUTEROL SULF 2.5 MG/0.5ML(0.5%) NEB SOLN NEB SCH ×4 (00:32→18:56)
[2022-04-23 05:00] VITALS: BP 155/61
[2022-04-23] MEDS: cefTAZidime 1 GM in SODIUM CHL 0.9% 50 ML IV SCH ×3 (05:48→22:08)
[2022-04-23] MEDS: SODIUM CHLOR 0.9% PF (SALINE LOCK) 10ML VIAL/SYR IV SCH ×3 (05:48→22:08)
[2022-04-23] MEDS: ALBUTEROL SULF 2.5 MG/0.5ML(0.5%) NEB SOLN NEB PRN (08:22)
[2022-04-23] MEDS: TAMSULOSIN HYDROCHLORIDE 0.4 MG CAP PO SCH (08:57)
[2022-04-23] MEDS: APIXABAN 5 MG TAB PO SCH ×2 (08:57→22:09)
[2022-04-23] MEDS: FUROSEMIDE 20 MG TAB PO SCH ×2 (08:57→19:15)
[2022-04-23] MEDS: CITALOPRAM HYDROBR 20 MG TAB PO SCH (08:58)
[2022-04-23] MEDS: LOSARTAN POTASSIUM 50 MG TAB PO SCH ×2 (08:58→22:08)
[2022-04-23] MEDS: ASPirin 81 mg TAB PO SCH (08:58)
[2022-04-23] MEDS: amLODIPine BESYLATE 5 MG TAB PO SCH (08:58)
[2022-04-23] MEDS: FAMOTIDINE 20 MG TAB PO SCH (08:59)
[2022-04-23] MEDS: METOPROLOL TARTRATE 50 MG TAB PO SCH ×2 (08:59→22:09)
[2022-04-23] MEDS: guaiFENesin-DM 100/10mg/5ml SYR PO PRN (08:59)
[2022-04-23 09:00] VITALS: BP 152/60
[2022-04-23] MEDS ORDERED: methylPREDNISolone SOD SUCC 125 MG/2 ML VL IV ONE (12:00)
[2022-04-23] MEDS ORDERED: FUROSEMIDE 40 MG/4 ML VIAL IV ONE (12:00)
[2022-04-23 12:52] VITALS: BP 138/55
[2022-04-23 13:51] LABS: Calcium 8.7 mg/dL (8.5-10.1); Potassium 3.7 mmol/L (3.5-5.1)
[2022-04-23 13:54] LABS: BUN/Creatinine Ratio 30.8
[2022-04-23 16:58] VITALS: BP 155/60
[2022-04-23 22:00] VITALS: BP 124/54
[2022-04-24] MEDS: ALBUTEROL SULF 2.5 MG/0.5ML(0.5%) NEB SOLN NEB SCH ×3 (00:09→12:17)
[2022-04-24] MEDS: IPRATROPIUM BROM 0.5 MG/2.5ML INH SOL NEB SCH ×3 (00:09→12:17)
[2022-04-24 05:00] VITALS: BP 150/64
[2022-04-24] MEDS: FUROSEMIDE 20 MG TAB PO SCH (05:59)
[2022-04-24] MEDS: cefTAZidime 1 GM in SODIUM CHL 0.9% 50 ML IV SCH ×2 (05:59→13:45)
[2022-04-24] MEDS: SODIUM CHLOR 0.9% PF (SALINE LOCK) 10ML VIAL/SYR IV SCH (05:59)
[2022-04-24] MEDS: guaiFENesin-DM 100/10mg/5ml SYR PO PRN (06:13)
[2022-04-24 06:33] LABS: Hematocrit 32.2 % (41.0-53.0); Hemoglobin 11.3 g/dL (13.5-17.5); Mean Corpuscular Hemoglobin 31.8 pg (28.0-32.0); Mean Corpuscular Hgb Conc. 35.1 g/dL (32.0-36.0); Mean Corpuscular Volume 90.7 fL (80.0-100.0); Red Blood Cells 3.55 10^6/uL (4.5-5.90); Red Cell Distribution Width 14.3 % (11.8-14.3); White Blood Cell 10.4 10^3/uL (4.4-10.8)
[2022-04-24 06:49] LABS: Basophils % (manual) 0 (0.0-2.0); Blast Cells 0; Eosinophils % (manual) 0 (0-7); Metamyelocytes % 0; Myelocytes % 0; Promyelocytes % 0; Reactive Lymphocytes 0
[2022-04-24 06:52] LABS: BUN/Creatinine Ratio 37.6; Calcium 8.8 mg/dL (8.5-10.1); Potassium 3.8 mmol/L (3.5-5.1)
[2022-04-24 08:04] LABS: Band Neutrophils % (manual) 4; Lymphocytes % (manual) 9 (10.0-50.0); Monocytes % (manual) 8 (0-12)
[2022-04-24 08:43] VITALS: BP 153/66
[2022-04-24] MEDS: CITALOPRAM HYDROBR 20 MG TAB PO SCH (08:58)
[2022-04-24] MEDS: METOPROLOL TARTRATE 50 MG TAB PO SCH (08:58)
[2022-04-24] MEDS: ASPirin 81 mg TAB PO SCH (08:58)
[2022-04-24] MEDS: LOSARTAN POTASSIUM 50 MG TAB PO SCH (08:59)
[2022-04-24] MEDS: amLODIPine BESYLATE 5 MG TAB PO SCH (08:59)
[2022-04-24] MEDS: FAMOTIDINE 20 MG TAB PO SCH (08:59)
[2022-04-24] MEDS: APIXABAN 5 MG TAB PO SCH (09:00)
[2022-04-24] MEDS: TAMSULOSIN HYDROCHLORIDE 0.4 MG CAP PO SCH (09:00)
[2022-04-24] MEDS ORDERED: APIX5TAB PO (12:11)
[2022-04-24] MEDS ORDERED: LEVO-28 PO (12:11)
[2022-04-24] MEDS ORDERED: levoFLOXacin 500 MG TAB PO ONE (12:15)
[2022-04-24 12:35] VITALS: BP 137/59
[2022-04-24 13:57] VITALS: BP 137/57
[2022-04-24 16:39] VITALS: BP 156/84
[2022-04-25] MEDS ORDERED: levoFLOXacin 500 MG TAB PO SCH (10:00)
[2022-04-28] MEDS ORDERED: APIXABAN 5 MG TAB PO SCH (22:00)
== END 2022-04-24 17:22 | DRG 698 ==
LOC: ER 19:55 → EDSEX 19:55 → EDBD 19:55 → TELE 23:55 → TELE-WESTW 04-19 17:02
PROVIDERS: ADMIT Nurse Practitioner Family; ATTEND Internal Medicine
DX: T83.518A Infection and inflammatory reaction due to other urinary catheter, initial encounter (principal); I26.99 Other pulmonary embolism without acute cor pulmonale; I50.33 Acute on chronic diastolic (congestive) heart failure; J96.21 Acute and chronic respiratory failure with hypoxia; N39.0 Urinary tract infection, site not specified; J98.11 Atelectasis; J43.9 Emphysema, unspecified; E87.6 Hypokalemia; Z20.822 Contact with and (suspected) exposure to COVID-19; E88.09 Other disorders of plasma-protein metabolism, not elsewhere classified; I11.0 Hypertensive heart disease with heart failure; R91.8 Other nonspecific abnormal finding of lung field; E66.9 Obesity, unspecified; B96.5 Pseudomonas (aeruginosa) (mallei) (pseudomallei) as the cause of diseases classified elsewhere; Z79.01 Long term (current) use of anticoagulants; Z68.33 Body mass index [BMI] 33.0-33.9, adult; Z95.0 Presence of cardiac pacemaker; Z88.1 Allergy status to other antibiotic agents; Z88.0 Allergy status to penicillin; Z87.891 Personal history of nicotine dependence; Z86.73 Personal history of transient ischemic attack (TIA), and cerebral infarction without residual deficits; Z83.3 Family history of diabetes mellitus; Z79.82 Long term (current) use of aspirin
CPT/HCPCS: 36415; 71045; 71275; 80048; 80053; 81001; 83605; 83880; 84484; 85007; 85025; 85027; 85379; 85610; 85730; 87040; 87070; 87081; 87086; 87088; 87186; 87205; 87426; 87804; 93005; 93306; 94640; 96365; 96372; 96375; G0378; J0696; J1100; J3490; P9047

== ENCOUNTER 2022-07-13 11:24 | Inpatient (IN) | payer MEDICARE, MEDICAID ==
[~2022-07-13] VITALS: Ht 188 cm; Wt 108.4 kg
[~2022-07-13 11:24] MED LIST changes: +ALBU0.084 NEB; -ALBUAER3 IN; +APIX5TAB PO; -CEFU500T43 PO; +LEVO500T91 PO; -LINE1TAB6 PO; -LOSA-69 PO; +LOSA50TA46 PO; -NITR-87 PO; -OMEP-260 PO; +OMEP1CAP70 PO; -PRED20TA2 PO; -UMEC1AER IN; -UMEC1AER INH
[2022-07-13] MEDS ORDERED: methylPREDNISolone SOD SUCC 125 MG/2 ML VL IV ONE ×2 (11:30→13:30)
[2022-07-13 11:51] LABS: Basophils # (auto) 0.1 10 ^3/uL (0-0.2); Basophils % (auto) 0.9 % (0.0-2.0); Eosinophils # (auto) 0.7 10 ^3/uL (0-0.8); Eosinophils % (auto) 8.3 % (0.0-7.0); Hematocrit 32.7 % (41.0-53.0); Hemoglobin 10.8 g/dL (13.5-17.5); Lymphocytes # (auto) 2.1 10 ^3/uL (0.4-5.4); Lymphocytes % (auto) 25.8 % (10.0-50.0); Mean Corpuscular Hemoglobin 31.1 pg (28.0-32.0); Mean Corpuscular Hgb Conc. 32.9 g/dL (32.0-36.0); Mean Corpuscular Volume 94.6 fL (80.0-100.0); Monocytes # (auto) 0.8 10 ^3/uL (0-1.3); Neutrophils # (auto) 4.4 10 ^3/uL (1.6-8.6); Nucleated Red Blood Cells % 0.1 %; Red Blood Cells 3.45 10^6/uL (4.5-5.90); Red Cell Distribution Width 14.4 % (11.8-14.3)
[2022-07-13 12:24] LABS: Albumin 3.1 g/dL (3.4-5.0); Calcium 8.6 mg/dL (8.5-10.1); Magnesium 2.2 mg/dL (1.6-2.6); Potassium 3.7 mmol/L (3.5-5.1)
[2022-07-13 12:28] LABS: BUN/Creatinine Ratio 13.3 (10.0-20.0); Bilirubin, Total 0.4 mg/dL (0.2-1.0); Total Protein 6.3 g/dL (6.4-8.2)
[2022-07-13] MEDS ORDERED: methylPREDNISolone SOD SUCC 40 MG/ML VL ONE (13:26)
[2022-07-13] MEDS ORDERED: NITROGLYCERIN 0.4 MG SL TAB SL PRN (13:30)
[2022-07-13] MEDS ORDERED: ALBUTEROL SULF 2.5 MG/0.5ML(0.5%) NEB SOLN NEB PRN (13:30)
[2022-07-13] MEDS ORDERED: MORPHINE SULFATE INJ 2 MG/ml SYRG IV PRN (13:30)
[2022-07-13] MEDS ORDERED: IPRATROPIUM BROM 0.5 MG/2.5ML INH SOL NEB PRN (13:30)
[2022-07-13 13:52] VITALS: BP 116/57
[2022-07-13 14:11] LABS: Magnesium 2.1 mg/dL (1.6-2.6)
[2022-07-13] MEDS: ENOXAPARIN SOD 40 MG/0.4 ML SYRINGE SC SCH (14:49)
[2022-07-13] MEDS ORDERED: IOHEXOL 350 MG/ML 100ML IJ ONE (15:09)
[2022-07-13] MEDS ORDERED: PANTOPRAZOLE 40 MG/10 ML VIAL INJ IV ONE (15:15)
[2022-07-13] MEDS: IPRATROPIUM BROM 0.5 MG/2.5ML INH SOL NEB SCH (19:49)
[2022-07-13] MEDS: ALBUTEROL SULF 2.5 MG/0.5ML(0.5%) NEB SOLN NEB SCH (19:49)
[2022-07-13] MEDS: METOPROLOL TARTRATE 50 MG TAB PO SCH (23:37)
[2022-07-13] MEDS: LOSARTAN POTASSIUM 50 MG TAB PO SCH (23:37)
[2022-07-13] MEDS: DIVALPROEX SODIUM PO SCH (23:40)
[2022-07-14 00:55] VITALS: BP 150/56
[2022-07-14] MEDS: methylPREDNISolone SOD SUCC 125 MG/2 ML VL IV SCH ×2 (01:11→09:20)
[2022-07-14] MEDS: IPRATROPIUM BROM 0.5 MG/2.5ML INH SOL NEB SCH ×4 (01:11→19:03)
[2022-07-14] MEDS: ALBUTEROL SULF 2.5 MG/0.5ML(0.5%) NEB SOLN NEB SCH ×4 (01:11→19:03)
[2022-07-14] MEDS ORDERED: PNEUMOCOCCAL VACC POLYS 25 MCG/0.5 ML VIAL IM ONE (01:45)
[2022-07-14 05:00] VITALS: BP 182/87
[2022-07-14] MEDS ORDERED: hydrALAZINE HCL 20 MG/ML VL IV ONE (05:45)
[2022-07-14 05:51] LABS: Basophils # (auto) 0 10 ^3/uL (0-0.2); Basophils % (auto) 0.1 % (0.0-2.0); Eosinophils # (auto) 0 10 ^3/uL (0-0.8); Eosinophils % (auto) 0.1 % (0.0-7.0); Hematocrit 34.2 % (41.0-53.0); Hemoglobin 11.6 g/dL (13.5-17.5); Lymphocytes # (auto) 0.8 10 ^3/uL (0.4-5.4); Lymphocytes % (auto) 13.4 % (10.0-50.0); Mean Corpuscular Hgb Conc. 33.8 g/dL (32.0-36.0); Mean Corpuscular Volume 91.8 fL (80.0-100.0); Monocytes # (auto) 0 10 ^3/uL (0-1.3); Monocytes % (auto) 0.7 % (0.0-12.0); Neutrophils # (auto) 5.1 10 ^3/uL (1.6-8.6); Neutrophils % (auto) 85.7 % (37.0-80.0); Nucleated Red Blood Cells % 0.1 %; Red Blood Cells 3.72 10^6/uL (4.5-5.90); Red Cell Distribution Width 14.3 % (11.8-14.3)
[2022-07-14 06:26] LABS: Albumin 3.2 g/dL (3.4-5.0); BUN/Creatinine Ratio 17.3 (10.0-20.0); Bilirubin, Total 0.7 mg/dL (0.2-1.0); Calcium 8.8 mg/dL (8.5-10.1); Total Protein 7.5 g/dL (6.4-8.2)
[2022-07-14 09:00] VITALS: BP 151/60
[2022-07-14] MEDS: POTASSIUM CHL 20 Meq TABLET PO SCH (09:20)
[2022-07-14] MEDS: ENOXAPARIN SOD 40 MG/0.4 ML SYRINGE SC SCH (09:20)
[2022-07-14] MEDS: LOSARTAN POTASSIUM 50 MG TAB PO SCH ×2 (09:21→22:00)
[2022-07-14] MEDS: TAMSULOSIN HYDROCHLORIDE 0.4 MG CAP PO SCH (09:21)
[2022-07-14] MEDS: CITALOPRAM HYDROBR 20 MG TAB PO SCH (09:21)
[2022-07-14] MEDS: METOPROLOL TARTRATE 50 MG TAB PO SCH ×2 (09:21→22:58)
[2022-07-14] MEDS ORDERED: FUROSEMIDE 20 MG TAB PO SCH (10:00)
[2022-07-14] MEDS ORDERED: ASPirin-EC 81 mg tab PO SCH (10:00)
[2022-07-14] MEDS ORDERED: PANTOPRAZOLE 40 MG/10 ML VIAL INJ IV SCH (10:00)
[2022-07-14] MEDS ORDERED: DOXYCYCLINE 100 MG TAB/CAP PO ONE (12:15)
[2022-07-14 12:56] LABS: Hepatitis C Antibody Negative (Negative)
[2022-07-14 13:00] VITALS: BP 132/70
[2022-07-14 17:00] VITALS: BP 165/65
[2022-07-14 22:00] VITALS: BP 122/71
[2022-07-14] MEDS: DIVALPROEX SODIUM PO SCH (22:00)
[2022-07-14] MEDS: APIXABAN 5 MG TAB PO SCH (22:59)
[2022-07-14] MEDS: DOXYCYCLINE 100 MG TAB/CAP PO SCH (22:59)
[2022-07-14] MEDS: methylPREDNISolone SOD SUCC 40 MG/ML VL IV SCH (23:03)
[2022-07-14] MEDS: MUPIROCIN 2% OINT 15gm or 22gm FOR MRSA NARES EACHNOSTRI SCH (23:22)
[2022-07-15] MEDS: ALBUTEROL SULF 2.5 MG/0.5ML(0.5%) NEB SOLN NEB SCH ×4 (00:29→18:05)
[2022-07-15] MEDS: IPRATROPIUM BROM 0.5 MG/2.5ML INH SOL NEB SCH ×4 (00:29→18:06)
[2022-07-15 04:39] LABS: Urine Bacteria NONE SEEN /hpf (None Seen); Urine Blood Negative /uL (Negative); Urine Specific Gravity 1.012 (1.001-1.035); Urine WBC 6 /hpf (0 - 3)
[2022-07-15 05:00] VITALS: BP 172/75
[2022-07-15 05:58] LABS: Anion Gap 4 (5-15); BUN/Creatinine Ratio 27.2 (10.0-20.0); Blood Urea Nitrogen 28 mg/dL (7-18); Calcium 8.8 mg/dL (8.5-10.1); Carbon Dioxide 33 mmol/L (21-32); Chloride 95 mmol/L (98-107); GFR African American 89 mL/min; GFR Non-African American 74 mL/min; Glucose 153 mg/dL (74-106); Potassium 4.4 mmol/L (3.5-5.1); Sodium 132 mmol/L (136-145)
[2022-07-15 06:00] LABS: Basophils # (auto) 0 10 ^3/uL (0-0.2); Basophils % (auto) 0.2 % (0.0-2.0); Eosinophils # (auto) 0.1 10 ^3/uL (0-0.8); Eosinophils % (auto) 0.6 % (0.0-7.0); Hemoglobin 11.3 g/dL (13.5-17.5); Lymphocytes # (auto) 0.9 10 ^3/uL (0.4-5.4); Lymphocytes % (auto) 7.7 % (10.0-50.0); Mean Corpuscular Hemoglobin 31.6 pg (28.0-32.0); Mean Corpuscular Hgb Conc. 33.1 g/dL (32.0-36.0); Mean Corpuscular Volume 95.3 fL (80.0-100.0); Monocytes # (auto) 0.3 10 ^3/uL (0-1.3); Monocytes % (auto) 2.8 % (0.0-12.0); Neutrophils # (auto) 9.9 10 ^3/uL (1.6-8.6); Neutrophils % (auto) 88.7 % (37.0-80.0); Nucleated Red Blood Cells % 0.1 %; Red Blood Cells 3.57 10^6/uL (4.5-5.90); White Blood Cell 11.1 10^3/uL (4.4-10.8)
[2022-07-15 09:00] VITALS: BP 120/63
[2022-07-15] MEDS: POTASSIUM CHL 20 Meq TABLET PO SCH (09:11)
[2022-07-15] MEDS: methylPREDNISolone SOD SUCC 40 MG/ML VL IV SCH (09:11)
[2022-07-15] MEDS: DOXYCYCLINE 100 MG TAB/CAP PO SCH (09:12)
[2022-07-15] MEDS: TAMSULOSIN HYDROCHLORIDE 0.4 MG CAP PO SCH (09:12)
[2022-07-15] MEDS: METOPROLOL TARTRATE 50 MG TAB PO SCH (09:12)
[2022-07-15] MEDS: CITALOPRAM HYDROBR 20 MG TAB PO SCH (09:12)
[2022-07-15] MEDS: APIXABAN 5 MG TAB PO SCH (09:12)
[2022-07-15] MEDS: LOSARTAN POTASSIUM 50 MG TAB PO SCH (09:13)
[2022-07-15] MEDS: MUPIROCIN 2% OINT 15gm or 22gm FOR MRSA NARES EACHNOSTRI SCH (09:24)
[2022-07-15] MEDS ORDERED: FUROSEMIDE 20 MG TAB PO SCH (10:00)
[2022-07-15] MEDS ORDERED: diphenhdrAMINE HCL 25 MG CAP PO PRN (12:45)
[2022-07-15 13:00] VITALS: BP 151/63
[2022-07-15 17:00] VITALS: BP 179/79
[2022-07-16] MEDS ORDERED: predniSONE 20 MG TAB PO SCH (10:00)
== END 2022-07-15 20:00 | DRG 189 ==
LOC: ER 11:24 → EDBD 11:24 → TELE 13:16 → TELE-WESTW 23:36
PROVIDERS: ADMIT Registered Nurse; ATTEND Internal Medicine
DX: J96.21 Acute and chronic respiratory failure with hypoxia (principal); I50.33 Acute on chronic diastolic (congestive) heart failure; J44.1 Chronic obstructive pulmonary disease with (acute) exacerbation; N39.0 Urinary tract infection, site not specified; I69.354 Hemiplegia and hemiparesis following cerebral infarction affecting left non-dominant side; I11.0 Hypertensive heart disease with heart failure; J96.22 Acute and chronic respiratory failure with hypercapnia; E66.9 Obesity, unspecified; Z20.822 Contact with and (suspected) exposure to COVID-19; Z86.711 Personal history of pulmonary embolism; Z93.59 Other cystostomy status; Z88.0 Allergy status to penicillin; Z88.2 Allergy status to sulfonamides; Z88.1 Allergy status to other antibiotic agents; Z87.891 Personal history of nicotine dependence; Z95.0 Presence of cardiac pacemaker; Z68.30 Body mass index [BMI] 30.0-30.9, adult
CPT/HCPCS: 36415; 36600; 71045; 71275; 80048; 80053; 80061; 81001; 82805; 83036; 83735; 83880; 84443; 84484; 85025; 85379; 86803; 87081; 87340; 87426; 93005; 94640; 96374; 96375; C9113; G0378

== ENCOUNTER 2022-07-30 19:20 | Emergency (ER) | payer MEDICARE, MEDICAID ==
[~2022-07-30] VITALS: Ht 182.9 cm; Wt 133.6 kg
[2022-07-30 19:26] VITALS: BP 109/10
[2022-07-30] MEDS ORDERED: EPINEPHrine HCL 1 MG/10 ML SYRG ONE (19:35)
== END 2022-07-30 20:29 ==
LOC: EDBD 19:20 → ER 19:26
DX: I46.9 Cardiac arrest, cause unspecified (principal); I11.0 Hypertensive heart disease with heart failure; I50.9 Heart failure, unspecified; J44.9 Chronic obstructive pulmonary disease, unspecified; Z86.73 Personal history of transient ischemic attack (TIA), and cerebral infarction without residual deficits; Z95.0 Presence of cardiac pacemaker; Z90.89 Acquired absence of other organs; Z87.891 Personal history of nicotine dependence; Z79.82 Long term (current) use of aspirin; Z79.899 Other long term (current) drug therapy; Z79.2 Long term (current) use of antibiotics; Z88.0 Allergy status to penicillin; Z88.1 Allergy status to other antibiotic agents; Z88.2 Allergy status to sulfonamides
CPT/HCPCS: 31500; 92950; 99285; J0171